=== PATIENT | male | born 1965 | race Caucasian/White ===

== ENCOUNTER 2017-01-15 05:28 | Emergency (ER) | payer MEDICARE, MEDICAID ==
[~2017-01-15] VITALS: Ht 188 cm; Wt 117.5 kg
[~2017-01-15 05:28] MED LIST: ACETAMINOPHEN500 M3 PO; AMIODARONE 200200 MG PO; AMLODIPINE BES2.5 MG PO; ASPIRIN 81MG TA81 MG PO; ATENOLOL50 MG PO; ATORVASTATIN 8080 MG PO; ATORVASTATIN CA80 MG PO; AUGMENTIN 875-1 EACH PO; AZITHROMYCIN250 M1 PO; COREG25 MG PO; ETODOLAC400 MG PO; FLEXERIL10 MG PO; FLONASE 50 MCG16 GM; FUROSEMIDE40 MG PO; GABAPENTIN300 M1 PO; GABAPENTIN300 MG PO; HYCODAN 5MG. TAB5 MG PO; HYDROCODON-ACETAMINO PO; HYDROCODONE-APA1 TA1 PO; IMDUR 30MG. TAB30 MG PO; IMDUR 60MG. TAB60 MG PO; LIPITOR20 MG PO; LISINOPRIL/HCTZ1 TA3 PO; LISINOPRIL10 MG PO; LOPRESSOR100 M1 PO; LORTAB 5/3251 TAB PO; LORTAB 5/500 501 TAB PO; MEDROL 4MG. DOSE4 MG PO; METOPROLOL SUC100 M1 PO; METOPROLOL TAR100 MG PO; METOPROLOL TART50 MG PO; MULTIVITAMIN1 TA1 PO; NAPROXEN SODIU500 MG PO; NEURONTIN800 MG PO; NITROSTAT0.4 MG SL; NORCO 325 MG-51 TAB PO; PERCOCET 5/3251 EACH PO; PERCOCET1 TA1 PO; PERCOGESIC1 TAB PO; PHENERGAN 25MG.25 M1 PO; PHENERGAN25 M3 PO; PLAVIX 75MG TAB75 MG PO; PLAVIX75 MG PO; POTASSIUM CHLO20 ME2 PO; PREDNISONE 10MG10 MG PO; PREDNISONE 20MG20 MG PO; PRILOSEC OTC20 MG PO; PROTONIX40 MG PO; SALMETEROL-F28 PUFFS IN; SERTRALINE 100100 MG PO; TESSALON PERLE100 MG PO; TRAMADOL 50MG T50 MG PO; TYLENOL ES500 M1 PO; TYLENOL WITH CO1 TA1 PO; VENLAFAXINE H37.5 MG PO; VENTOLIN H0.09 MG/AC IH; VENTOLIN H0.09 MG/Ac IH; VICODIN 5/500 T1 TAB PO; WARFARIN 3MG TAB3 MG PO; ZOFRAN ODT4 MG PO; ZOFRAN4 MG PO; ZOLOFT 50MG TAB50 MG PO
[2017-01-15 06:02] LABS: HEMOGLOBIN 16.4 g/dL (14.1-18.0); LYMPH # 2.4 K/mm3 (0.7-4.5); LYMPH % 23.3 % (10-50)
--- NOTE | 2017-01-15 06:35 | Emergency Room Report ---
History of Present Illness Time Seen by [id number] Presenting Problem in Triage Pt arrived:Walked Presenting Problem:C/O LEFT RIB PAIN AFTER SHOVELING ROCK LAST WEEK. HAS APPT WITH DR ROSADO AT 1:45 TODAY. 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 N Clinical Suspician of Infection? Y Mental Status: 1 - Regular (Normal Baseline) Sepsis Risk:Low Sepsis Risk Have you (or family members/close friends) recently traveled outside the [place]? N If Yes, where/when: Have you had exposure to infectious disease within the past month? N TB? Other? Specify: Source patient, RN notes reviewed, family, old records Exam Limitations no limitations Comment lt rib pain over the last few days with no hemoptysis and no rash - he reports started after shoveling rocks - has been in ed x 2 for same issue Cardiac Chest Pain Chest pain indicative of cardiac No Timing/Duration this evening Severity moderate ALLERGIES Coded Allergies: diphenhydramine (From BENADRYL ALLERGY) (Mild, NA-NAUSEA 04/17/16) nitroglycerin (Mild, NITRO PASTE-NAUSEA 04/17/16) pseudoephedrine (From SUDAFED) (Mild, NA-NAUSEA 04/17/16) Home Medications Active Scripts Prednisone (Prednisone 20MG) 20 MG PO BID #10 TAB Prov: 12/22/16 Prednisone (Prednisone 20MG) 20 MG PO BID #10 TAB Prov: 01/12/17 Fluticasone Propionate (Flonase 50 Mcg Nasal [place]) 2 SPRAY NA DAILY #1 BOT Prov: 12/20/16 Reported Medications Metoprolol Tartrate (Lopressor) 100 MG PO BID Multiple Vitamin (Multivitamin) 1 TAB PO DAILY Venlafaxine Hydrochloride (Venlafaxine) 37.5 MG PO BID CLOPIDOGREL BISULFATE (PLAVIX) 75 MG PO DAILY Pantoprazole Sodium (Protonix) 40 MG PO DAILY Nitroglycerin (Nitrostat) 0.4 MG SL [id number] PRN CHEST PAIN Atorvastatin Calcium (Atorvastatin 80MG) 80 MG PO QHS Gabapentin (Gabapentin 300MG) 300 MG PO TID Sertraline Hydrochloride (Sertraline 100MG) 200 MG PO DAILY Albuterol Sulfate (Ventolin Hfa) 0.09 MG IH PRN PRN . History Medical History General CAD? Yes Angina: Yes CT: Yes Hypertension? Yes Hyperlipidemia? No CHF? Yes DVT? No PE? No COPD? Yes Asthma? No Anemia? No GERD? Yes Gastric ulcers? No GI Bleed? No Hernia? No Thyroid Problems? No Hypothyroidism? No CVA? No Seizures? No Diabetes? No Renal Insuffiency? No End Stage Renal Disease? No UTI? No Stones? No BPH? No GB Disease: No Nephritic Syndrome? No Asplenia? No Hepatitis? No Sickle Cell Disease? No Arthritis? Yes Migraines? No Cataracts? No Glaucoma? No MRSA? No HIV? No TB? No Anxiety? Yes Depression? Yes Cancer? No More? Yes Additional hx: A-FIB, TIA Immunization Hx DT/Tetanus Unknown Flu [id number] Pneumonia Received In Past Surgical Hx Previous Surgery?Y RT HIP REPLAC X2 LEFT LEG AND ANKLE SURGER GALL BLADDER REMOVED ANURISM OPEN HEART TRIPLE BYPASS HEART CATH 01/2014 STOMACH ANERSYM REPAIR CARDIAC STENTS Family History Family Hx Diabetes Yes CAD Yes Hypertension Yes Hyperlipidemia Yes Cancer Yes TB Yes Social History Smoking Hx Smoker: Current Every Day Smoker Tobacco: Yes Type Cigarettes Packs/day 1 1/2 - 2 Packs Alcohol Alcohol: No Drugs none Review of Systems All Other Systems Reviewed and Negative Constitutional denies fever Eyes denies drainage ENT denies: ear pain, epistaxis, throat pain. Respiratory see HPI, denies cough, denies shortness of breath, denies wheezing, other Cardiovascular see HPI, denies chest pain, denies palpitations, denies syncope, other Gastrointestinal denies abdominal pain, denies diarrhea, denies vomiting Genitourinary denies: dysuria, frequency, hesitancy, hematuria. Musculoskeletal denies back pain, denies joint pain, denies joint swelling, denies neck pain Skin denies rash Psychiatric/Neurological denies headache, denies seizure Physical Exam Vital Signs Vital Signs Date Time Temp Pulse Resp B/P Pulse O2 O2 Flow FiO2 Ox Delivery Rate 01/15 0638 97.4 54 20 171/70 94 01/15 0608 56 20 158/65 96 01/15 0533 97.4 58 20 172/86 96 - WBC >12,000 or <4,000 or 10% bands? 2 or more SIRS Criteria Met? B/P:171/70 MAP:114 Creatinine >2.0? UA output<0.5ml/kg/hr for 2 hrs? Platelet count >100,000? Lactate >2.0mmol/1? INR >1.2 or PTT > than 60 sec? Evidence of Organ Dysfunction? Provider documented clinical suspician of infection? Y Sepsis Criteria Count: 1 Sepsis Risk: Low Sepsis Risk General Appearance no apparent distress Eye Exam - bilateral eye PERRL, bilateral eye EOMI Ear, Nose, Throat normal ENT inspection Neck supple Respiratory Status No: respiratory distress. Lung Sounds bilateral: rhonchi. 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 No Results/Orders Laboratory Tests 01/15/17 0538: Sodium 142, Potassium 4.1, Chloride 106, Carbon Dioxide 30, BUN 20 H, Creatinine 0.9, Estimated Creat Clear 158, Estimated GFR (MDRD) 88, Glucose 104, Calcium 9.4, Total Bilirubin 0.5, AST 22, ALT 36, Alkaline Phosphatase 112, Creatine Kinase 38 L, CK-MB (CK-2) Rel Index 3.7, CK and CKMB Interp 1.4, Troponin I 0.16 H, Total Protein 8.1, Albumin 3.8, Globulin 4.3 H, Albumin/ Globulin Ratio 0.9 L, WBC 10.3, RBC 5.05, Hgb 16.4, Hct 49.3, MCV 97.7, RDW 14.6, Plt Count 184, MPV 5.7 L, Gran % 71.4, Gran # 7.4, Lymphocytes % 23.3, Monocytes % 4.7, Eosinophils % 0.3, Basophils % 0.3, Lymphocytes # 2.4, Monocytes # 0.5, Eosinophils # 0.0, Basophils # 0.0, PUBS MCHC 33.2, MCH 32.5 H Current Medication Orders Sig/Sudhakar Start time Last Medication Dose Route Stop Time Status Admin Sodium Chloride 10 ML PRN PRN 01/15 545 AC IV 01/17 544 Orders Procedure Date/time Status FELLER HAND 01/15 643 Active ELECTROCARDIOGRAM REQUEST 01/15 545 Active CHEST(2 VIEWS-NOT PORTABLE) 01/15 545 Active IV SALINE LOCK 01/15 545 Active CBC WITH AUTO DIFF 01/15 545 Complete CARDIAC ENZYMES 01/15 545 Complete CHEM 12 PROFILE 01/15 545 Complete 12 LEAD EKG-AUBREY (INITIAL) 01/15 UNK Active 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 Rhythm Sinus Bradycardia EKG compared w/(date of old), LBBB XRAY/CT/US XRAY/CT/US XRAY chest XR interpretation by reviewed by me Xray Results normal/NAD Departure Departure Time of Disposition 0650 Disposition DC Home or Self Care(routine) Clinical Impression Primary Impression: Sprain of costal cartilage Qualifiers: Encounter type: subsequent encounter Qualified Code: S23.41XD - Sprain of ribs, subsequent encounter Secondary Impressions: LBBB (left bundle branch block) Condition STABLE Patient Instructions DI for Rib Contusion Additional Instructions keep appt today Discharge Counseling Counseled pt/family regarding diagnosis, test results, follow up needs ED Critical Care Critical Care No at [phone]
--- NOTE | 2017-01-15 06:35 | Emergency Room Report ---
History of Present Illness Time Seen by [id number] Presenting Problem in Triage Pt arrived:Walked Presenting Problem:C/O LEFT RIB PAIN AFTER SHOVELING ROCK LAST WEEK. HAS APPT WITH DR ROSADO AT 1:45 TODAY. 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 N Clinical Suspician of Infection? Y Mental Status: 1 - Regular (Normal Baseline) Sepsis Risk:Low Sepsis Risk Have you (or family members/close friends) recently traveled outside the [place]? N If Yes, where/when: Have you had exposure to infectious disease within the past month? N TB? Other? Specify: Source patient, RN notes reviewed, family, old records Exam Limitations no limitations Comment lt rib pain over the last few days with no hemoptysis and no rash - he reports started after shoveling rocks - has been in ed x 2 for same issue Cardiac Chest Pain Chest pain indicative of cardiac No Timing/Duration this evening Severity moderate ALLERGIES Coded Allergies: diphenhydramine (From BENADRYL ALLERGY) (Mild, NA-NAUSEA 04/17/16) nitroglycerin (Mild, NITRO PASTE-NAUSEA 04/17/16) pseudoephedrine (From SUDAFED) (Mild, NA-NAUSEA 04/17/16) Home Medications Active Scripts Prednisone (Prednisone 20MG) 20 MG PO BID #10 TAB Prov: 12/22/16 Prednisone (Prednisone 20MG) 20 MG PO BID #10 TAB Prov: 01/12/17 Fluticasone Propionate (Flonase 50 Mcg Nasal [place]) 2 SPRAY NA DAILY #1 BOT Prov: 12/20/16 Reported Medications Metoprolol Tartrate (Lopressor) 100 MG PO BID Multiple Vitamin (Multivitamin) 1 TAB PO DAILY Venlafaxine Hydrochloride (Venlafaxine) 37.5 MG PO BID CLOPIDOGREL BISULFATE (PLAVIX) 75 MG PO DAILY Pantoprazole Sodium (Protonix) 40 MG PO DAILY Nitroglycerin (Nitrostat) 0.4 MG SL [id number] PRN CHEST PAIN Atorvastatin Calcium (Atorvastatin 80MG) 80 MG PO QHS Gabapentin (Gabapentin 300MG) 300 MG PO TID Sertraline Hydrochloride (Sertraline 100MG) 200 MG PO DAILY Albuterol Sulfate (Ventolin Hfa) 0.09 MG IH PRN PRN . History Medical History General CAD? Yes Angina: Yes [place]: Yes Hypertension? Yes Hyperlipidemia? No CHF? Yes DVT? No PE? No COPD? Yes Asthma? No Anemia? No GERD? Yes Gastric ulcers? No GI Bleed? No Hernia? No Thyroid Problems? No Hypothyroidism? No CVA? No Seizures? No Diabetes? No Renal Insuffiency? No End Stage Renal Disease? No UTI? No Stones? No BPH? No GB Disease: No Nephritic Syndrome? No Asplenia? No Hepatitis? No Sickle Cell Disease? No Arthritis? Yes Migraines? No Cataracts? No Glaucoma? No MRSA? No HIV? No TB? No Anxiety? Yes Depression? Yes Cancer? No More? Yes Additional hx: A-FIB, TIA Immunization Hx DT/Tetanus Unknown Flu [id number] Pneumonia Received In Past Surgical Hx Previous Surgery?Y RT HIP REPLAC X2 LEFT LEG AND ANKLE SURGER GALL BLADDER REMOVED ANURISM OPEN HEART TRIPLE BYPASS HEART CATH 01/2014 STOMACH ANERSYM REPAIR CARDIAC STENTS Family History Family Hx Diabetes Yes CAD Yes Hypertension Yes Hyperlipidemia Yes Cancer Yes TB Yes Social History Smoking Hx Smoker: Current Every Day Smoker Tobacco: Yes Type Cigarettes Packs/day 1 1/2 - 2 Packs Alcohol Alcohol: No Drugs none Review of Systems All Other Systems Reviewed and Negative Constitutional denies fever Eyes denies drainage ENT denies: ear pain, epistaxis, throat pain. Respiratory see HPI, denies cough, denies shortness of breath, denies wheezing, other Cardiovascular see HPI, denies chest pain, denies palpitations, denies syncope, other Gastrointestinal denies abdominal pain, denies diarrhea, denies vomiting Genitourinary denies: dysuria, frequency, hesitancy, hematuria. Musculoskeletal denies back pain, denies joint pain, denies joint swelling, denies neck pain Skin denies rash Psychiatric/Neurological denies headache, denies seizure Physical Exam Vital Signs Vital Signs Date Time Temp Pulse Resp B/P Pulse O2 O2 Flow FiO2 Ox Delivery Rate 01/15 0638 97.4 54 20 171/70 94 01/15 0608 56 20 158/65 96 01/15 0533 97.4 58 20 172/86 96 - WBC >12,000 or <4,000 or 10% bands? 2 or more SIRS Criteria Met? B/P:171/70 MAP:114 Creatinine >2.0? UA output<0.5ml/kg/hr for 2 hrs? Platelet count >100,000? Lactate >2.0mmol/1? INR >1.2 or PTT > than 60 sec? Evidence of Organ Dysfunction? Provider documented clinical suspician of infection? Y Sepsis Criteria Count: 1 Sepsis Risk: Low Sepsis Risk General Appearance no apparent distress Eye Exam - bilateral eye PERRL, bilateral eye EOMI Ear, Nose, Throat normal ENT inspection Neck supple Respiratory Status No: respiratory distress. Lung Sounds bilateral: rhonchi. 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 No Results/Orders Laboratory Tests 01/15/17 0538: Sodium 142, Potassium 4.1, Chloride 106, Carbon Dioxide 30, BUN 20 H, Creatinine 0.9, Estimated Creat Clear 158, Estimated GFR (MDRD) 88, Glucose 104, Calcium 9.4, Total Bilirubin 0.5, AST 22, ALT 36, Alkaline Phosphatase 112, Creatine Kinase 38 L, CK-MB (CK-2) Rel Index 3.7, CK and CKMB Interp 1.4, Troponin I 0.16 H, Total Protein 8.1, Albumin 3.8, Globulin 4.3 H, Albumin/ Globulin Ratio 0.9 L, WBC 10.3, RBC 5.05, Hgb 16.4, Hct 49.3, MCV 97.7, RDW 14.6, Plt Count 184, MPV 5.7 L, Gran % 71.4, Gran # 7.4, Lymphocytes % 23.3, Monocytes % 4.7, Eosinophils % 0.3, Basophils % 0.3, Lymphocytes # 2.4, Monocytes # 0.5, Eosinophils # 0.0, Basophils # 0.0, PUBS MCHC 33.2, MCH 32.5 H Current Medication Orders Sig/Sudhakar Start time Last Medication Dose Route Stop Time Status Admin Sodium Chloride 10 ML PRN PRN 01/15 545 AC IV 01/17 544 Orders Procedure Date/time Status STICKER HAND 01/15 643 Active ELECTROCARDIOGRAM REQUEST 01/15 545 Active CHEST(2 VIEWS-NOT PORTABLE) 01/15 545 Active IV SALINE LOCK 01/15 545 Active CBC WITH AUTO DIFF 01/15 545 Complete CARDIAC ENZYMES 01/15 545 Complete CHEM 12 PROFILE 01/15 545 Complete 12 LEAD EKG-AUBREY (INITIAL) 01/15 UNK Active 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 Rhythm 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 Bradycardia EKG compared w/(date of old), LBBB XRAY/CT/US XRAY/CT/US XRAY chest XR interpretation by reviewed by me Xray Results normal/NAD Departure Departure Time of Disposition 0650 Disposition DC Home or Self Care(routine) Clinical Impression Primary Impression: Sprain of costal cartilage Qualifiers: Encounter type: subsequent encounter Qualified Code: S23.41XD - Sprain of ribs, subsequent encounter Secondary Impressions: LBBB (left bundle branch block) Condition STABLE Patient Instructions DI for Rib Contusion Additional Instructions keep appt today Discharge Counseling Counseled pt/family regarding diagnosis, test results, follow up needs ED Critical Care Critical Care No at 0651
[2017-01-15 07:04] VITALS: BP 188/90
--- NOTE | 2017-01-15 09:15 | RADIOLOGY REPORT PS360 ---
CHEST(2 VIEWS-NOT PORTABLE) COMPARISON: PA and lateral chest 01/11/2017 HISTORY: Left chest wall pain TECHNIQUE: PA and lateral chest FINDINGS: The lung lemos are well expanded and appear clear of infiltrate. There is no pleural fluid. Cardiac size is normal and unchanged from the previous exam. The sternal wire sutures are again noted. IMPRESSION: Nonacute chest findings
== END 2017-01-15 07:11 | disposition home or self-care (01) ==
LOC: ER 05:28
PROVIDERS: Emergency Medicine
DX: S23.41XA Sprain of ribs, initial encounter (principal); I25.10 Atherosclerotic heart disease of native coronary artery without angina pectoris; I10 Essential (primary) hypertension; I48.91 Unspecified atrial fibrillation; I44.7 Left bundle-branch block, unspecified; X50.3XXA Overexertion from repetitive movements, initial encounter; Y92.009 Unspecified place in unspecified non-institutional (private) residence as the place of occurrence of the external cause

== ENCOUNTER 2017-06-17 10:24 | Observation (INO) | payer MEDICARE, MEDICAID ==
[~2017-06-17] VITALS: Ht 188 cm; Wt 110.0 kg
[~2017-06-17 10:24] MED LIST changes: +CIPRO 500MG TA500 MG PO; +ELIQUIS5 MG PO; +GABAPENTIN 600600 MG PO; +GABAPENTIN800 MG PO; +ISOSORBIDE MONO60 M1 PO
[2017-06-17 11:19] VITALS: BP 152/89
[2017-06-17] MEDS ORDERED: CLOPIDOGREL75 M1 PO (11:32)
[2017-06-17] MEDS ORDERED: K-DUR 20MEQ TA20 MEQ PO (11:33)
[2017-06-17] MEDS ORDERED: ONDANSETRON ODT8 MG PO (11:34)
[2017-06-17] MEDS ORDERED: GABAPENTIN800 MG PO (11:35)
[2017-06-17] MEDS ORDERED: LISINOPRIL40 MG PO (11:35)
[2017-06-17] MEDS ORDERED: METOPROLOL SUC100 M1 PO (11:37)
[2017-06-17] MEDS ORDERED: ELIQUIS5 MG PO (11:37)
[2017-06-17] MEDS ORDERED: ALDACTONE25 MG PO (11:38)
[2017-06-17] MEDS ORDERED: IMDUR 60MG. TAB60 MG PO (11:40)
[2017-06-17] MEDS ORDERED: ATORVASTATIN 8080 MG PO (11:41)
[2017-06-17] MEDS ORDERED: VENTOLIN H0.09 MG/Ac IH (11:41)
[2017-06-17] MEDS ORDERED: SERTRALINE 100100 MG PO (11:43)
[2017-06-17] MEDS ORDERED: HYDROCODONE BIT1 T51 PO (11:44)
[2017-06-17] MEDS ORDERED: OXYCODONE HYDRO1 TA1 PO (11:45)
[2017-06-17] MEDS ORDERED: TAMSULOSIN HYD0.4 MG PO (11:45)
[2017-06-17] MEDS ORDERED: PHENERGAN25 M3 PO (11:46)
[2017-06-17] MEDS ORDERED: AMITRIPTYLINE H25 MG PO (11:48)
--- NOTE | 2017-06-17 14:12 | CONSULT NOTE ---
Standard Demographics Patient Demo Date of Consultation: 06/17/17 Referring Provider: Ministerio Madrid MD Reason for Consultation: Pre-op Evaluation PRIMARY DIAGNOSIS: LEFT RENAL STONE AND RENAL COLIC Problem list Problem list: 1. Coronary artery disease A. History of coronary bypass grafting 3. DOCKERY not used. B. History of persistent elevated troponin prompting LEFT heart catheterization , 02/13/2017, diffuse, mild to moderate nonflow limiting coronary artery disease with all vein grafts occluded by previous angiography. LEFT ventricular ejection fraction 40 percent with LV dilatation noted. LVEDP is 15 mmHg. C. Echocardiogram 02/13/2017 LEFT atrial size 5.8 cm, mild LEFT ventricular dilatation with an estimated ejection fraction of 40 percent with marked hypo-to akinesis involving the mid to distal septum, anteroapical, apex and inferior atwood. RIGHT atrium and RIGHT ventricle normal in size with normal contractility. Aortic valve is thickened and calcified but continued to display mobility. Mitral valve leaflets are minimally thickened with no MS. Mild MR and TR noted. D. Cardiac catheterization 01/2016 adequate iliamna coronary arteries with mild nonflow limiting disease. All saphenous vein grafts are occluded ostially with no identifiable angiographic origin. Hyperdynamic ejection fraction at 70 percent with LVEDP 18 mmHg. 2. History of infrarenal abdominal aortic aneurysm, status post percutaneous endovascular repair using a [employer] modular bifurcated prosthesis (main body of the graft 26 x 111, LEFT ipsilateral limb 20 x 90, RIGHT contralateral limb 16 x 90) , Dr. Vinicius Chandler, [facility], [place], [place], 03/2015 3. Atrial fibrillation, paroxysmal A. Previously on Coumadin therapy, switch to Xarelto therapy 02/2017 but currently on Eliquis therapy at this time. B. History of TIA for which she has been on Plavix. 4. Tobacco use of one to 1.5 packs per day 5. Chronic back pain 6. Chronic abnormal electrocardiogram with LEFT bundle branch block 7. Hypertension 8. Hyperlipidemia History of present illness: History of present illness: 51-year-old white male with significant history for for coronary artery disease, chronic atrial fibrillation and cardiomyopathy with ejection fraction of 40 percent by recent cardiac catheterization and echocardiogram was admitted from Dr. Madrid's office for kidney stone with persistent pain and hematuria. Cardiology consulted for preop evaluation. Patient denies any recent chest pain, pressure tightness or shortness of breath. He states he has been feeling well until last couple of weeks when the kidney stone pain has begun. He started passing blood last week. He has an appointment with Dr. Jolly later this month but due to the increasing and persistent pain, was seen in Dr. Madrid's office and subsequently admitted today. Past Medical History: General: Hypertension Yes CVA No Seizures No TB No COPD Yes Asthma No Diabetes No Angina Yes [place] Yes Hyperlipidemia No Urinary No Cancer No Rheumatic H.D. No Ulcers No MRSA No GB Disease No Other CARDIAC CLEARANCE ONCHART Additional hx A-FIB, TIA Past Surgical HX: Previous Surgery?Y RT HIP REPLAC X2 LEFT LEG AND ANKLE SURGER GALL BLADDER REMOVED ANURISM OPEN HEART TRIPLE BYPASS HEART CATH 01/2014 STOMACH ANERSYM REPAIR CARDIAC STENTS HERNIA REPAIR Allergies Coded Allergies: diphenhydramine (From BENADRYL ALLERGY) (Mild, NA-NAUSEA 05/23/17) pseudoephedrine (From SUDAFED) (Mild, NA-NAUSEA 05/23/17) nitroglycerin (From NITRO-BID) (05/23/17) Home medications: Active Scripts Ciprofloxacin HCl (Cipro 500MG TAB) 500 MG PO BID #14 TAB Prov: 05/24/17 Reported Medications CLOPIDOGREL BISULFATE (Clopidogrel) 75 MG PO DAILY POTASSIUM CHL (Potassium Chloride) 20 MEQ PO DAILY Ondansetron (Ondansetron Odt) 8 MG PO PRN PRN nausea Gabapentin (Gabapentin 800MG) 800 MG PO Q8 Lisinopril (Lisinopril 40MG) 40 MG PO DAILY METOPROLOL SUCCINATE XL (Metoprolol Succinate) 100 MG PO BID Apixaban (Eliquis) 5 MG PO DAILY Spironolactone (Aldactone) 25 MG NG DAILY ISOSORBIDE MONONITRATE (Isosorbide Mononitrate ER) 60 MG PO DAILY Albuterol Sulfate (Ventolin Hfa) 0.09 MG IH BID Atorvastatin Calcium (Atorvastatin 80MG) 80 MG PO QHS Sertraline Hydrochloride (Sertraline 100MG) 100 MG PO BID HYDROCODONE/ACETAMINOPHEN (Hydrocodon-Acetaminoph 7.5-300) 1 TAB PO PRN PRN pain OXYCODONE HCL/ACETAMINOPHEN (Oxycodon-Acetaminophen 7.5-325) 1 TAB PO PRN PRN pain TAMSULOSIN HCL (Tamsulosin 0.4MG) 0.4 MG PO QHS PROMETHAZINE HCL (Phenergan 25MG Tab (Geq)) 25 MG PO Q6HP PRN N/V AMITRIPTYLINE HCL (Amitriptyline Hydrochloride) 25 MG PO DAILY Multiple Vitamin (Multivitamin) 1 TAB PO DAILY Pantoprazole Sodium (Protonix) 40 MG PO DAILY Current Medications: Current Medications Amitriptyline HCl 25 MG DAILY PO (CAN) Amlodipine Besylate 2.5 MG DAILY PO Clopidogrel Bisulfate 75 MG DAILY PO Furosemide 40 MG DAILY PO Isosorbide Mononitrate 60 MG DAILY PO (CANr) Atorvastatin Calcium 80 MG QHS PO (CAN) Atorvastatin Calcium 80 MG QHS PO Gabapentin 800 MG TID PO Lisinopril 10 MG BID PO Metoprolol Succinate 150 MG BID PO Pantoprazole Sodium 40 MG QHS PO Quetiapine Fumarate 100 MG QHS PO Sertraline HCl 100 MG BID PO Tamsulosin HCl 0.4 MG QHS PO Sodium Chloride 1,000 ML .STK-MED ONE IV (DC) Hydromorphone HCl 1 MG Q4HP PRN IV Sodium Chloride 1,000 ML .[id number] IV Immunization HX DT/Tetanus Unknown Flu [id number] Pneumonia RECEIVED IN PAST TB Test in last year No Family history Family HX Family Hx Insignificant No Diabetes Yes CAD Yes Hypertension Yes Hyperlipidemia Yes Cancer Yes TB Yes Social Hx: Smoking HX Tobacco Yes Type Cigarettes Packs/day < 1 PACK Are you/the child exposed to second-hand smoke: Yes Alcohol Alcohol: No Hx of Drug Use Drug Use? No Review of systems: Constitutional No: no symptoms reported. Respiratory No: no symptoms reported. Cardiovascular No no symptoms reported Gastrointestinal/Abdominal No no symptoms reported Genitourinary hematuria, pain. Musculoskeletal back pain. Neurological No: no symptoms reported. Exam: Admission Vital Signs: 1ST Vital Signs Result Date Time Pulse Ox 98 06/17 1119 B/P 152/89 06/17 1119 O2 Delivery ROOM AIR 06/17 1119 Temp 97.5 06/17 1119 Pulse 72 06/17 1119 Resp 20 06/17 1119 Last Vital Signs: Vital Signs Result Date Time Resp 06/17 1308 Pulse 72 06/17 1119 B/P 152/89 06/17 1119 Temp 97.5 06/17 1119 Pulse Ox 98 06/17 111 O2 Delivery ROOM AIR 06/17 111 Exam General appearance: alert, awake, no acute distress Neck: no carotid bruit, no JVD Cardiovascular: regular rate & rhythm, no murmur Respiratory: clear to auscultation, good air movement ABD: soft, no tenderness Extremities: moves all, no peripheral edema Neuro: alert, intact, oriented Laboratory data: Laboratory Tests 06/17/17 1350: Urine Color YELLOW, Urine Appearance CLEAR, Urine pH 6.5, Ur Specific Armstrong <= 1.005, Urine Protein NEGATIVE, Urine Ketones NEGATIVE, Urine Blood 3+ H, Urine Nitrate NEGATIVE, Urine Bilirubin NEGATIVE, Urine Urobilinogen 0.2, Ur Leukocyte Esterase NEGATIVE, Urine RBC 3-5, Urine WBC NONE, Ur Squamous Epith Cells OCC, Urine Bacteria TRACE, Urine Glucose NEGATIVE 06/17/17 1110: Sodium 141, Potassium 3.2 L, Chloride 105, Carbon Dioxide 24, BUN 9, Creatinine 1.0, Estimated Creat Clear 133, Estimated GFR (MDRD) 78, Glucose 112 H, Calcium 9.3, Total Bilirubin 0.5, AST 18, ALT 18, Alkaline Phosphatase 97, Total Protein 7.3, Albumin 3.6, Globulin 3.7 H, Albumin/Globulin Ratio 1.0 L Plan: Assessment: 1. Nephrolithiasis, Renal Colic and hematuria with plans for surgery 2. Non-flow limiting CAD by cath, 02/2017, asymptomatic on medical therapy. 3. Chronic elevated troponin, pt has been referred to Cardiology for further evaluation since pt is unable to have Cardiac MRI due to endovascular Abdominal Aortic Aneurysm repair containing metal. 4. Cardiomyopathy, EF 40% on echo and cardiac cath, 03/2017. On SANTY, spironolactone and Beta dalton therapy 5. LBBB on EKG, chronic. No history of near-syncope or syncope. 6. Atrial fibrillation, paroxysmal, with history of TIA, On Eliquis and plavix therapy. 7. HTN, controlled 8. Hyperlipidemia, on statin Recommendations: 1. Patient is an acceptable risk to proceed with planned urologic surgery. 2. He may hold Eliquis and plavix starting today and bridge with Lovenox therapy starting tomorrow if surgery not planned for today or tomorrow. 3. Recommend continuing cardiac medications including SANTY inhibitor, spironolactone and beta dalton therapy. 4. Cautious use of IV fluids due to cardiomyopathy with ejection fraction of 40 percent. at 0738
[2017-06-17 14:14] LABS: URINE BILIRUBIN - DIPSTICK NEGATIVE (NEG); URINE BLOOD 3+ (NEG)
--- NOTE | 2017-06-17 14:23 | RADIOLOGY REPORT PS360 ---
CT ABD PELVIS W/O CONTRAST CLINICAL INDICATION: Left flank pain with hematuria LEFT FLANK PAIN ORDERING PHYSICIAN: Franko Madrid MD PATIENT AGE: 51 years COMPARISON: 05/23/2017 TECHNIQUE: Axial images obtained with sagittal and coronal reformats. PROCEDURE: Oral Contrast: None IV Contrast: None . FINDINGS: There are minimal atelectatic changes in the lung bases. Coronary artery calcifications are present. There has been prior cholecystectomy. The liver, spleen, adrenal glands, and pancreas are unremarkable. No obvious biliary dilatation. There is there is an 8 mm stone within the left renal pelvis. Previously this was in the lower pole of the left kidney. There is minimal prominence of the left renal pelvis some mild thickening of the uroepithelium. A definite ureteral calculus is not apparent. No urinary bladder calculi evident. Right renal collecting system is unremarkable. There are bilateral renal cysts. There has been prior aortoiliac stent graft placement. There remains dilatation of the aortic aneurysm sac at 4.9 x 4.5 cm unchanged. No evidence of acute retroperitoneal hemorrhage. No intestinal obstruction or free air. No evidence of appendicitis or diverticulitis Artifact is present from right hip prosthesis. IMPRESSION: 1. Left nephrolithiasis. Left renal stone is present in the renal pelvis previously in the lower pole the left kidney. There is minimal prominence of the left renal pelvis and mild thickening of the uroepithelium on the left however no definite obstructing calculus is apparent. The thickening could be related to urinary tract infection. 2. Prior aortoiliac stent graft with dilatation of the [place] aorta unchanged
[2017-06-17 14:32] LABS: URINE SQUAMOUS CELLS OCC #/hpf (OCC)
--- NOTE | 2017-06-17 16:01 | RADIOLOGY REPORT PS360 ---
CHEST(2 VIEWS-NOT PORTABLE) HISTORY: Shortness of breath sob ORDERING PHYSICIAN: Franko Madrid MD PATIENT AGE: 51 years COMPARISON: 04/25/2017 FINDINGS: There has been prior median sternotomy. Normal heart size. No evidence of CHF. There remains coarsening of the bronchovascular markings at 4 suggesting chronic peribronchial inflammatory changes. There is some density in the right infrahilar region probably related to overlapping vessels. No lobar consolidation or collapse. No acute bony anomalies. IMPRESSION: Chronic peribronchial inflammatory changes with no acute finding
[2017-06-17 16:30] VITALS: BP 103/68
[2017-06-17 19:32] VITALS: BP 103/68
[2017-06-17 20:05] VITALS: BP 104/51
--- NOTE | 2017-06-17 21:42 | RADIOLOGY REPORT PS360 ---
PROCEDURE: 2-D M-mode and color Doppler study INDICATIONS FOR THE TEST: Chest pain COPD+ Heart Murmur+ Tobacco Smoking+ Palpitations+ Fatigue Syncope Edema Hypertension+Diabetes Mellitus Rheumatic Fever SOB LEVINE+Obesity+Hyperlipidemia+` Family History HD Additional History CABG, multiple stents, shortening of MV leaflet, ventricular septal myectomy, AFIB, NI, TIA, LBBB PATIENT INFORMATION HEIGHT: 74 WEIGHT: 245 GENDER: Male B/P: 142/68 2-D/M-MODE INTERPRETATION: 2-D MEASUREMENTS OBSERVED VALUES IN CMS Right Ventricular Dimension (RVDd) 2.8 Interventricular Septum (Thickness)(IVsd) 1.6 Left Ventricular Internal Dimensions(LVIDd) 3.5 Left Ventricular Posterior Wall (Thickness)(LVPWd) 1.6 Aortic Root 4.1 Aortic Cusp Separation 2.8 Left Atrial Dimensions (LAD) 5.6 2D 1. Left atrium is moderately enlarged, left ventricle is normal size, there is mild concentric left ventricular hypertrophy, visually estimated ejection fraction approximately 40%, there is abnormal septal motion, there is marked hypokinesis involving the mid to distal septum and apical wall. 2. The right atrium and right ventricle are normal size and contractility. 3. The aortic valve is minimally thickened and calcified. 4. The mitral valve leaflets are minimally thickened. There is mild systolic anterior motion of the mitral valve leaflets seen. 5. The tricuspid valve is grossly normal. 6. The pulmonic valve is poorly visualized. DOPPLER INTERROGATION: Doppler interrogation of the aortic, mitral and tricuspid valvular presence of mild mitral and tricuspid regurgitation, there is mild aortic insufficiency also seen. There is no intracavitary gradient seen. The tricuspid and jet velocity insufficient for calculation of the right ventricular systolic pressure, diastolic parameters are inconclusive. CONCLUSION: 1. Moderately enlarged left atrium, normal left ventricular size, mild concentric left ventricular hypertrophy, visually estimated ejection fraction 40%, there is abnormal septal motion and segmental wall motion abnormality as described above, diastolic parameters are inconclusive. 2. Systolic anterior motion of the mitral valve leaflets seen, there is no mitral stenosis, there is mild mitral regurgitation. 3. Thickened and calcified aortic valve without aortic stenosis, there is mild aortic insufficiency present, there is no dynamic left ventricular outflow track obstruction seen. 4. Mild tricuspid regurgitation. 5. No significant pericardial effusion noted.
[2017-06-18 04:13] VITALS: BP 78/41
[2017-06-18 07:06] LABS: LYMPH # 1.9 K/mm3 (0.7-4.5); LYMPH % 33.9 % (10-50)
[2017-06-18 07:09] LABS: HEMOGLOBIN 12.7 g/dL (14.1-18.0)
[2017-06-18 07:29] VITALS: BP 89/55
[2017-06-18 09:07] VITALS: BP 117/68
--- NOTE | 2017-06-18 09:10 | ACUTE CARE PROGRESS NOTE (QUA) ---
Progress Notes Subjective Date 06/18/17 Time 0920 Note 51 yo WM in bed in NAD. Waiting to see Urologist to decide on treatment plan Objective Findings Last VS-Temp:98.4 B/P:89/55 Pulse:77 Resp:20 SaO2:93 ROOM AIR Last weight lbs:242 oz:9 K.026 Method:Bed Scales Exam General appearance: alert, awake, no acute distress Cardiovascular: regular rate & rhythm Respiratory: congested cough but lungs without wheezing or rales. Reviewed: medications, vital signs, lab results Assessment/Plan Problem List 1. Left nephrolithiasis 2. CAD (coronary artery disease) Status: Chronic Assessment/Plan: Clinically stable. 3. Hypertension Status: Chronic Assessment/Plan: Low BP overnight. Will stop norvasc. Consider reducing lisinopril if needed. Continue metoprolol 150 mg BID for BP/Heart rate control but may need to adjust as well. 4. Hyperlipidemia Status: Chronic 5. Chronic obstructive pulmonary disease Status: Chronic 6. Atrial fibrillation Patient condition Stable Plan: See above. This inpt stay is expected to cross 2 MNs from start of care Yes at 0914
--- NOTE | 2017-06-18 09:14 | PHARMACY CLINIC NOTE ---
Patient Demographics Patient Demographics Admission date: 06/17/17 Date: 06/18/17 Time: 0913 Allergies Coded Allergies: diphenhydramine (From BENADRYL ALLERGY) (Mild, NA-NAUSEA 05/23/17) pseudoephedrine (From SUDAFED) (Mild, NA-NAUSEA 05/23/17) nitroglycerin (From NITRO-BID) (05/23/17) HEIGHT- FT: 6 IN: 2.00 K.026 VTE General Information Labs: Laboratory Tests 06/18 0625 Hematology Hgb (14.1 - 18.0 g/dL) 12.7 L Hct (42.0 - 52.0 %) 37.1 L Plt Count (142 - 424 K/mm3) 132 L Disclaimer The following section includes nursing documentation that has been pulled in for pharmacy review. Patient's VTE score: 2 Patient's VTE Risk: VERY LOW RISK Clinical trial participant? No VTE prophylaxis NQF [id number] VTE prophylaxis ordered? Yes Type of prophylaxis/treatment: CHUCKIE at 0913
--- NOTE | 2017-06-18 12:19 | CONSULT NOTE-UROLOGY ---
Urology Initial Visit Date of Visit: 06/18/17 HPI/Chief Complaint: Referring provider: 51/M Presenting problem: Length of time pt has had problem: Person attending patient for this visit: Is seen for hospital consultation for LEFT renal calculus. He has multiple medical issues including status post bilateral aortobifem bypass endograft 3-4 years ago at [facility] also had cardiac surgery with bypass. He is followed by Dr. Franko Sellers cardiology at [facility]. He states that he saw him 3 weeks ago. He presented here with 2-3 weeks of LEFT flank pain LEFT lower back pain and bilateral lumbar pain. He had a CT scan which demonstrated a 9 mm LEFT renal stone without definite hydronephrosis. He had no hydroureter. He did have some around his graft which may or may not be significant. His had no fever or chills. He states that he passed a single stone about 20 years ago without surgical intervention. We discussed his this stone operator may not be causing his pain. Due to its size we did discuss intervention but not acutely here today. Considering his multiple conditions I suggest we perform this [facility]. We discussed flexible LEFT ureteroscopy with laser of the stone. We will place a stent perioperatively. Hopefully this can be performed as an outpatient. He understands and wishes to proceed. He does have transportation issues and we'll schedule for next week so he can arrange transportation. He was given a prescription for Percocet 5 mg number 20. Problem List: 1. Renal calculus, left 2. AAA (abdominal aortic aneurysm) Past Medical History Arthritis? Y Diabetes? N Hyperlipedemia? N Hypertension? Y Heart Problems? W[place]? Y SOA? Asthma? N Lung Disease? COPD? Y TB? N Anemia? Y Bleeding Disorder? Cancer? N Radiation Tx? Hoarsness? Thyroid Problems? N Ulcers? N Kidney Disease? Liver Disease? Glaucoma? Seizures? N CVA? N Immune Disease? HIV? N Trouble w/anesthesia? Abn PSA? Prostate Biopsy? Sexual Dysfunction? Abn Periods? Female Hormone Problems? Uterus/Ovary Problems? ? : Para: Control? Type of BC: Surgical & Social History: Previous Surgery?Y RT HIP REPLAC X2 LEFT LEG AND ANKLE SURGER GALL BLADDER REMOVED ANURISM OPEN HEART TRIPLE BYPASS HEART CATH 01/2014 STOMACH ANERSYM REPAIR CARDIAC STENTS HERNIA REPAIR Tobacco Use:Y Type:Cigarettes Packs/day:< 1 Pack If No, have you ever used and quit how long ago? Alcohol Use: Marital Status: Occupation: Family History: Anemia? Arthritis? Asthma? TB?Y Cancer?Y Bleeding Troubles? Hyperlipidemia?Y Diabetes?Y COPD? Glaucoma? [place]? Heart Problems? HIV? Hypertension?Y Hoarsness? Immune Disease? Kidney Disease? Liver Disease? Lung Disease? Radiation Tx? Seizures? Shortness of Breath? Ulcers? CVA? Thyroid Problems? Trouble w/Anes? Any men in family ever diagnosed with prostate cancer? Relationship of this person: Current Home Medications Active Scripts Ciprofloxacin HCl (Cipro 500MG TAB) 500 MG PO BID #14 TAB Prov: 05/24/17 Reported Medications Spironolactone (Aldactone) 25 MG PO DAILY CLOPIDOGREL BISULFATE (Clopidogrel) 75 MG PO DAILY POTASSIUM CHL (Potassium Chloride) 20 MEQ PO DAILY Ondansetron (Ondansetron Odt) 8 MG PO PRN PRN nausea Gabapentin (Gabapentin 800MG) 800 MG PO Q8 Lisinopril (Lisinopril 40MG) 40 MG PO DAILY METOPROLOL SUCCINATE XL (Metoprolol Succinate) 100 MG PO BID Apixaban (Eliquis) 5 MG PO DAILY ISOSORBIDE MONONITRATE (Isosorbide Mononitrate ER) 60 MG PO DAILY Albuterol Sulfate (Ventolin Hfa) 0.09 MG IH BID Atorvastatin Calcium (Atorvastatin 80MG) 80 MG PO QHS Sertraline Hydrochloride (Sertraline 100MG) 100 MG PO BID HYDROCODONE/ACETAMINOPHEN (Hydrocodon-Acetaminoph 7.5-300) 1 TAB PO PRN PRN PAIN OXYCODONE HCL/ACETAMINOPHEN (Oxycodon-Acetaminophen 7.5-325) 1 TAB PO PRN PRN PAIN TAMSULOSIN HCL (Tamsulosin 0.4MG) 0.4 MG PO QHS PROMETHAZINE HCL (Phenergan 25MG Tab (Geq)) 25 MG PO Q6HP PRN N/V AMITRIPTYLINE HCL (Amitriptyline Hydrochloride) 25 MG PO DAILY Multiple Vitamin (Multivitamin) 1 TAB PO DAILY Pantoprazole Sodium (Protonix) 40 MG PO DAILY Allergies: Coded Allergies: diphenhydramine (From BENADRYL ALLERGY) (Mild, NA-NAUSEA 05/23/17) pseudoephedrine (From SUDAFED) (Mild, NA-NAUSEA 05/23/17) nitroglycerin (From NITRO-BID) (05/23/17) Review of Systems: Genitourinary (Male): Positive for: flank pain, hematuria. No: frequency. Vital Signs/Wt/Labs Weight -LB:242 OZ:9 K.026 Method:Bed Scales Height -FT:6 IN:2 CM:187.96 BMI:31.1 Vital Signs Date Time Temp Pulse Resp B/P Pulse O2 O2 Flow FiO2 Ox Delivery Rate 06/18 907 98.4 77 20 117/68 93 06/18 0900 20 06/18 0729 98.4 77 20 89/55 93 ROOM AIR 06/18 0413 97.8 68 18 78/41 91 ROOM AIR 06/18 0358 17 06/17 2149 06/17 2005 98.0 68 17 104/51 94 ROOM AIR 06/17 1932 97.8 83 20 103/68 94 06/17 1740 20 06/17 1630 97.8 83 16 103/68 94 ROOM AIR 06/17 1308 20 Color: Appearance Glucose: Ketone: Bilirubin: Sp.Helm: pH: Protein: Urobilinogen: Blood: Nitrite: Leukocytes: Urine collection method? Residual (ml): Laboratory Tests 06/18/17 0625: WBC 5.6, RBC 4.04 L, Hgb 12.7 L, Hct 37.1 L, MCV 91.7, RDW 13.6, Plt Count 132 L, MPV 7.4, Gran % 55.6, Gran # 3.1, Lymphocytes % 33.9, Monocytes % 5.6, Eosinophils % 4.5, Basophils % 0.3, Lymphocytes # 1.9, Monocytes # 0.3, Eosinophils # 0.3, Basophils # 0.0, PUBS MCHC 33.9, MCH 31.1 06/17/17 1350: Urine Color YELLOW, Urine Appearance CLEAR, Urine pH 6.5, Ur Specific Helm <= 1.005, Urine Protein NEGATIVE, Urine Ketones NEGATIVE, Urine Blood 3+ H, Urine Nitrate NEGATIVE, Urine Bilirubin NEGATIVE, Urine Urobilinogen 0.2, Ur Leukocyte Esterase NEGATIVE, Urine RBC 3-5, Urine WBC NONE, Ur Squamous Epith Cells OCC, Urine Bacteria TRACE, Urine Glucose NEGATIVE 06/17/17 1110: Sodium 141, Potassium 3.2 L, Chloride 105, Carbon Dioxide 24, BUN 9, Creatinine 1.0, Estimated Creat Clear 133, Estimated GFR (MDRD) 78, Glucose 112 H, Calcium 9.3, Total Bilirubin 0.5, AST 18, ALT 18, Alkaline Phosphatase 97, Total Protein 7.3, Albumin 3.6, Globulin 3.7 H, Albumin/Globulin Ratio 1.0 L Exam: General appearance: alert, active, face symmetric (mild discomfort) Objective: LEFT lower and bilateral lumbar tenderness to palpation. Impression/Plan: CT scan was reviewed and is as above. No additional stones noted. We will arrange for LEFT flexible ureteroscopy with laser renal calculus. Remain on all anticoagulation therapy. He can be discharged home from here today. We will contact him regarding scheduling of his stone treatment at [phone]
--- NOTE | 2017-06-18 12:44 | ACUTE CARE PROGRESS NOTE (QUA) ---
Progress Notes Subjective Date 06/18/17 Time 0645 Note doing better Patient/family reports: feeling better Nursing reports: no complaints Objective Findings Last VS-Temp:98.4 B/P:117/68 Pulse:77 Resp:20 SaO2:93 ROOM AIR Last weight lbs:242 oz:9 K.026 Method:Bed Scales Exam General appearance: alert Eyes: anicteric, PERRLA ENT: dry mucous membranes Neck: no JVD Cardiovascular: regular rate & rhythm, murmur Respiratory: normal breath sounds, no respiratory distress ABD: soft, no tenderness, no guarding, no organomegaly Genitourinary: no hematuria Extremities: moves all Musculoskeletal: equal muscle strength Skin: dry Neuro: alert, seal mixer II-XII nml as tested Reviewed: allergies, medications, vital signs, lab results, radiology report, consult note Assessment/Plan Problem List 1. Left nephrolithiasis 2. CAD (coronary artery disease) Status: Chronic 3. Hypertension Status: Chronic 4. Hyperlipidemia Status: Chronic 5. Chronic obstructive pulmonary disease Status: Chronic 6. Atrial fibrillation Patient condition Improving Plan: initiate discharge plan This inpt stay is expected to cross 2 MNs from start of care Yes Comments: will d/c to follow up at [facility] with dr currie at 1245
--- NOTE | 2017-06-18 12:44 | ACUTE CARE PROGRESS NOTE (QUA) ---
Progress Notes Subjective Date 06/18/17 Time 0645 Note doing better Patient/family reports: feeling better Nursing reports: no complaints Objective Findings Last VS-Temp:98.4 B/P:117/68 Pulse:77 Resp:20 SaO2:93 ROOM AIR Last weight lbs:242 oz:9 K.026 Method:Bed Scales Exam General appearance: alert Eyes: anicteric, PERRLA ENT: dry mucous membranes Neck: no JVD Cardiovascular: regular rate & rhythm, murmur Respiratory: normal breath sounds, no respiratory distress ABD: soft, no tenderness, no guarding, no organomegaly Genitourinary: no hematuria Extremities: moves all Musculoskeletal: equal muscle strength Skin: dry 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 Left nephrolithiasis 2. CAD (coronary artery disease) Status: Chronic 3. Hypertension Status: Chronic 4. Hyperlipidemia Status: Chronic 5. Chronic obstructive pulmonary disease Status: Chronic 6. Atrial fibrillation Patient condition Improving Plan: initiate discharge plan This inpt stay is expected to cross 2 MNs from start of care Yes Comments: will d/c to follow up at [facility] with dr currie at 1245
[2017-06-18 12:55] VITALS: BP 117/68
--- NOTE | 2017-06-18 12:56 | DISCHARGE SUMMARY STANDARD ---
Demographics Admit date: 06/17/17 Discharge date: 06/18/17 History of present illness History of present illness 51-year-old white male with significant history for for coronary artery disease, chronic atrial fibrillation and cardiomyopathy with ejection fraction of 40 percent by recent cardiac catheterization and echocardiogram was admitted from Dr. Madrid's office for kidney stone with persistent pain and hematuria. Cardiology consulted for preop evaluation. Patient denies any recent chest pain, pressure tightness or shortness of breath. He states he has been feeling well until last couple of weeks when the kidney stone pain has begun. He started passing blood last week. He has an appointment with Dr. Jolly later this month but due to the increasing and persistent pain, was seen in Dr. Madrid's office and subsequently admitted today. Hospital Course Hospital Course: pt did well in the hospital with ivf and pain meds and was seen by card and urology- ONCLUSION: 1. Moderately enlarged left atrium, normal left ventricular size, mild concentric left ventricular hypertrophy, visually estimated ejection fraction 40%, there is abnormal septal motion and segmental wall motion abnormality as described above, diastolic parameters are inconclusive. 2. Systolic anterior motion of the mitral valve leaflets seen, there is no mitral stenosis, there is mild mitral regurgitation. 3. Thickened and calcified aortic valve without aortic stenosis, there is mild aortic insufficiency present, there is no dynamic left ventricular outflow track obstruction seen. 4. Mild tricuspid regurgitation. 5. No significant pericardial effusion noted. Left nephrolithiasis. Left renal stone is present in the renal pelvis previously in the lower pole the left kidney. There is minimal prominence of the left renal pelvis and mild thickening of the uroepithelium on the left however no definite obstructing calculus is apparent. The thickening could be related to urinary tract infection. 2. Prior aortoiliac stent graft with dilatation of the [place] aorta unchanged Coronary artery disease A. History of coronary bypass grafting 3. DOCKERY not used. B. History of persistent elevated troponin prompting LEFT heart catheterization , 02/13/2017, diffuse, mild to moderate nonflow limiting coronary artery disease with all vein grafts occluded by previous angiography. LEFT ventricular ejection fraction 40 percent with LV dilatation noted. LVEDP is 15 mmHg. C. Echocardiogram 02/13/2017 LEFT atrial size 5.8 cm, mild LEFT ventricular dilatation with an estimated ejection fraction of 40 percent with marked hypo-to akinesis involving the mid to distal septum, anteroapical, apex and inferior [place]wood. RIGHT atrium and RIGHT ventricle normal in size with normal contractility. Aortic valve is thickened and calcified but continued to display mobility. Mitral valve leaflets are minimally thickened with no MS. Mild MR and TR noted. D. Cardiac catheterization 01/2016 adequate [place] coronary arteries with mild nonflow limiting disease. All saphenous vein grafts are occluded ostially with no identifiable angiographic origin. Hyperdynamic ejection fraction at 70 percent with LVEDP 18 mmHg. 2. History of infrarenal abdominal aortic aneurysm, status post percutaneous endovascular repair using a Cook modular bifurcated prosthesis (main body of the graft 26 x 111, LEFT ipsilateral limb 20 x 90, RIGHT contralateral limb 16 x 90) , Dr. Vinicius Chandler, [facility], [place], [place], 03/2015 3. Atrial fibrillation, paroxysmal A. Previously on Coumadin therapy, switch to Xarelto therapy 02/2017 but currently on Eliquis therapy at this time. B. History of TIA for which she has been on Plavix. 4. Tobacco use of one to 1.5 packs per day 5. Chronic back pain 6. Chronic abnormal electrocardiogram with LEFT bundle branch block 7. Hypertension 8. Hyperlipidemia seen for hospital consultation for LEFT renal calculus. He has multiple medical issues including status post bilateral aortobifem bypass endograft 3-4 years ago at [facility] also had cardiac surgery with bypass. He is followed by Dr. Franko Sellers cardiology at [facility]. He states that he saw him 3 weeks ago. He presented here with 2-3 weeks of LEFT flank pain LEFT lower back pain and bilateral lumbar pain. He had a CT scan which demonstrated a 9 mm LEFT renal stone without definite hydronephrosis. He had no hydroureter. He did have some around his graft which may or may not be significant. His had no fever or chills. He states that he passed a single stone about 20 years ago without surgical intervention. We discussed his this stone spreader operator may not be causing his pain. Due to its size we did discuss intervention but not acutely here today. Considering his multiple conditions I suggest we perform this [facility]. We discussed flexible LEFT ureteroscopy with laser of the stone. We will place a stent perioperatively. Hopefully this can be performed as an outpatient. He understands and wishes to proceed. He does have transportation issues and we'll schedule for next week so he can arrange transportation. He was given a prescription for Percocet 5 mg number 20 Discharge diagnoses Problem List 1. Left nephrolithiasis 2. CAD (coronary artery disease) Status Chronic 3. Hypertension Status Chronic 4. Hyperlipidemia Status Chronic 5. Chronic obstructive pulmonary disease Status Chronic 6. Atrial fibrillation 7. Abdominal aortic aneurysm Status Chronic 8. Renal calculus, left Medications Medications: Discharge meds are as noted. Follow up Follow up in office in: 7 DAYS with: Deanne HANEY,Dave Lynn Comment: will see urology for op surg at 6819
--- NOTE | 2017-06-18 12:56 | DISCHARGE SUMMARY STANDARD ---
Demographics Admit date: 06/17/17 Discharge date: 06/18/17 History of present illness History of present illness 51-year-old white male with significant history for for coronary artery disease, chronic atrial fibrillation and cardiomyopathy with ejection fraction of 40 percent by recent cardiac catheterization and echocardiogram was admitted from Dr. Madrid's office for kidney stone with persistent pain and hematuria. Cardiology consulted for preop evaluation. Patient denies any recent chest pain, pressure tightness or shortness of breath. He states he has been feeling well until last couple of weeks when the kidney stone pain has begun. He started passing blood last week. He has an appointment with Dr. Jolly later this month but due to the increasing and persistent pain, was seen in Dr. Madrid's office and subsequently admitted today. Hospital Course Hospital Course: pt did well in the hospital with ivf and pain meds and was seen by card and urology- ONCLUSION: 1. Moderately enlarged left atrium, normal left ventricular size, mild concentric left ventricular hypertrophy, visually estimated ejection fraction 40%, there is abnormal septal motion and segmental wall motion abnormality as described above, diastolic parameters are inconclusive. 2. Systolic anterior motion of the mitral valve leaflets seen, there is no mitral stenosis, there is mild mitral regurgitation. 3. Thickened and calcified aortic valve without aortic stenosis, there is mild aortic insufficiency present, there is no dynamic left ventricular outflow track obstruction seen. 4. Mild tricuspid regurgitation. 5. No significant pericardial effusion noted. Left nephrolithiasis. Left renal stone is present in the renal pelvis previously in the lower pole the left kidney. There is minimal prominence of the left renal pelvis and mild thickening of the uroepithelium on the left however no definite obstructing calculus is apparent. The thickening could be related to urinary tract infection. 2. Prior aortoiliac stent graft with dilatation of the [place] aorta unchanged Coronary artery disease A. History of coronary bypass grafting 3. DOCKERY not used. B. History of persistent elevated troponin prompting LEFT heart catheterization , 02/13/2017, diffuse, mild to moderate nonflow limiting coronary artery disease with all vein grafts occluded by previous angiography. LEFT ventricular ejection fraction 40 percent with LV dilatation noted. LVEDP is 15 mmHg. C. Echocardiogram 02/13/2017 LEFT atrial size 5.8 cm, mild LEFT ventricular dilatation with an estimated ejection fraction of 40 percent with marked hypo-to akinesis involving the mid to distal septum, anteroapical, apex and inferior [place]. RIGHT atrium and RIGHT ventricle normal in size with normal contractility. Aortic valve is thickened and calcified but continued to display mobility. Mitral valve leaflets are minimally thickened with no MS. Mild MR and TR noted. D. Cardiac catheterization 01/2016 adequate [place] coronary arteries with mild nonflow limiting disease. All saphenous vein grafts are occluded ostially with no identifiable angiographic origin. Hyperdynamic ejection fraction at 70 percent with LVEDP 18 mmHg. 2. History of infrarenal abdominal aortic aneurysm, status post percutaneous endovascular repair using a Cook modular bifurcated prosthesis (main body of the graft 26 x 111, LEFT ipsilateral limb 20 x 90, RIGHT contralateral limb 16 x 90) , Dr. Vinicius Chandler, [facility], [place], [place], 03/2015 3. Atrial fibrillation, paroxysmal A. Previously on Coumadin therapy, switch to Xarelto therapy 02/2017 but currently on Eliquis therapy at this time. B. History of TIA for which she has been on Plavix. 4. Tobacco use of one to 1.5 packs per day 5. Chronic back pain 6. Chronic abnormal electrocardiogram with LEFT bundle branch block 7. Hypertension 8. Hyperlipidemia seen for hospital consultation for LEFT renal calculus. He has multiple medical issues including status post bilateral aortobifem bypass endograft 3-4 years ago at [facility] also had cardiac surgery with bypass. He is followed by Dr. Franko Sellers cardiology at [facility]. He states that he saw him 3 weeks ago. He presented here with 2-3 weeks of LEFT flank pain LEFT lower back pain and bilateral lumbar pain. He had a CT scan which demonstrated a 9 mm LEFT renal stone without definite hydronephrosis. He had no hydroureter. He did have some around his graft which may or may not be significant. His had no fever or chills. He states that he passed a single stone about 20 years ago without surgical intervention. We discussed his this [place] stone may not be causing his pain. Due to its size we did discuss intervention but not acutely here today. Considering his multiple conditions I suggest we perform this [facility]. We discussed flexible LEFT ureteroscopy with laser of the stone. We will place a stent perioperatively. Hopefully this can be performed as an outpatient. He understands and wishes to proceed. He does have transportation issues and we'll schedule for next week so he can arrange transportation. He was given a prescription for Percocet 5 mg number 20 Discharge diagnoses Problem List 1. Left nephrolithiasis 2. CAD (coronary artery disease) Status Chronic 3. Hypertension Status Chronic 4. Hyperlipidemia Status Chronic 5. Chronic obstructive pulmonary disease Status Chronic 6. Atrial fibrillation 7. Abdominal aortic aneurysm Status Chronic 8. Renal calculus, left Medications Medications: Discharge meds are as noted. Follow up Follow up in office in: 7 DAYS with: Deanne HANEY,Dave Lynn Comment: will see urology for op surg at [id number]
== END 2017-06-18 13:30 | disposition home or self-care (01) ==
LOC: 2ND 10:24
PROVIDERS: Emergency Medicine
DX: N20.0 Calculus of kidney (principal)
CPT/HCPCS: G0378; J2405

== ENCOUNTER 2017-06-25 18:24 | Emergency (ER) | payer MEDICARE, MEDICAID ==
[~2017-06-25] VITALS: Ht 188 cm; Wt 101.6 kg
--- NOTE | 2017-06-25 18:42 | Emergency Room Report ---
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 N Clinical Suspician of Infection? N Mental Status: 1 - Regular (Normal Baseline) Sepsis Risk:Low Sepsis Risk Have you (or family members/close friends) recently traveled outside the [place]? N If Yes, where/when: Have you had exposure to infectious disease within the past month? N TB? Other? Specify: Source patient, RN notes reviewed Exam Limitations no limitations Comment Pt reports he has a large stone in his left kidney. He saw Dr. Dave Kim on Jun 14 and he put a stent in left ureter. Now passing pure blood in his urine and having severe left flank pain. Cardiac Chest Pain Chest pain indicative of cardiac No ALLERGIES Coded Allergies: diphenhydramine (From BENADRYL ALLERGY) (Mild, NA-NAUSEA 05/23/17) pseudoephedrine (From SUDAFED) (Mild, NA-NAUSEA 05/23/17) nitroglycerin (From NITRO-BID) (05/23/17) Home Medications Active Scripts Ciprofloxacin HCl (Cipro 500MG TAB) 500 MG PO BID #14 TAB Prov: 05/24/17 Reported Medications Spironolactone (Aldactone) 25 MG PO DAILY CLOPIDOGREL BISULFATE (Clopidogrel) 75 MG PO DAILY POTASSIUM CHL (Potassium Chloride) 20 MEQ PO DAILY Ondansetron (Ondansetron Odt) 8 MG PO PRN PRN nausea Gabapentin (Gabapentin 800MG) 800 MG PO Q8 Lisinopril (Lisinopril 40MG) 40 MG PO DAILY METOPROLOL SUCCINATE XL (Metoprolol Succinate) 100 MG PO BID Apixaban (Eliquis) 5 MG PO DAILY ISOSORBIDE MONONITRATE (Isosorbide Mononitrate ER) 60 MG PO DAILY Albuterol Sulfate (Ventolin Hfa) 0.09 MG IH BID Atorvastatin Calcium (Atorvastatin 80MG) 80 MG PO QHS Sertraline Hydrochloride (Sertraline 100MG) 100 MG PO BID HYDROCODONE/ACETAMINOPHEN (Hydrocodon-Acetaminoph 7.5-300) 1 TAB PO PRN PRN PAIN OXYCODONE HCL/ACETAMINOPHEN (Oxycodon-Acetaminophen 7.5-325) 1 TAB PO PRN PRN PAIN TAMSULOSIN HCL (Tamsulosin 0.4MG) 0.4 MG PO QHS PROMETHAZINE HCL (Phenergan 25MG Tab (Geq)) 25 MG PO Q6HP PRN N/V AMITRIPTYLINE HCL (Amitriptyline Hydrochloride) 25 MG PO DAILY Multiple Vitamin (Multivitamin) 1 TAB PO DAILY Pantoprazole Sodium (Protonix) 40 MG PO DAILY History Medical History General CAD? Yes Angina: Yes MD: Yes Hypertension? Yes Hyperlipidemia? No CHF? Yes DVT? No PE? No COPD? Yes Asthma? No Anemia? No GERD? Yes Gastric ulcers? No GI Bleed? No Hernia? No Thyroid Problems? No Hypothyroidism? No CVA? No Seizures? No Diabetes? No Renal Insuffiency? No End Stage Renal Disease? No UTI? No Stones? No BPH? No GB Disease: No Nephritic Syndrome? No Asplenia? No Hepatitis? No Sickle Cell Disease? No Arthritis? Yes Migraines? No Cataracts? No Glaucoma? No MRSA? No HIV? No TB? No Anxiety? Yes Depression? Yes Cancer? No More? Yes Additional hx: A-FIB, TIA Immunization Hx DT/Tetanus Unknown Flu [id number] Pneumonia Received In Past Surgical Hx Previous Surgery?Y RT HIP REPLAC X2 LEFT LEG AND ANKLE SURGER GALL BLADDER REMOVED ANURISM OPEN HEART TRIPLE BYPASS HEART CATH 01/2014 STOMACH ANERSYM REPAIR CARDIAC STENTS HERNIA REPAIR Family History Family Hx Diabetes Yes CAD Yes Hypertension Yes Hyperlipidemia Yes Cancer Yes TB Yes Social History Smoking Hx Smoker: Current Every Day Smoker Tobacco: Yes Type Cigarettes Packs/day < 1 Pack Alcohol Alcohol: No Review of Systems All Other Systems Reviewed and Negative Constitutional see HPI Genitourinary see HPI. Physical Exam Vital Signs Vital Signs Date Time Temp Pulse Resp B/P Pulse O2 O2 Flow FiO2 Ox Delivery Rate 06/25 2038 97.9 80 20 96/47 96 06/25 1855 18 06/25 1829 98.2 90 18 135/82 98 General Appearance normal appearance, severe distress Respiratory Status No: respiratory distress. Lung Sounds bilateral: normal breath sounds. 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 Yes Itz was queried for this patient? No Reason not queried - emergent pt cond=no time Risks/benefits of using a controlled substance for treatment were not discussed w/pt Results/Orders Laboratory Tests 06/25/17 2030: Urine Color Pending, Urine Appearance Pending, Urine pH Pending, Ur Specific [place] Pending 06/25/17 1900: Sodium 131 L, Potassium 2.9 *L, Chloride 102, Carbon Dioxide 26, BUN 12, Creatinine 1.1, Estimated Creat Clear 112, Estimated GFR (MDRD) 70, Glucose 96, Calcium 9.1, Total Bilirubin 0.6, AST 15, ALT 21, Alkaline Phosphatase 104, Total Protein 7.3, Albumin 3.6, Globulin 3.7 H, Albumin/Globulin Ratio 1.0 L, WBC 9.6, RBC 4.34 L, Hgb 13.4 L, Hct 38.7 L, MCV 89.2, RDW 13.8, Plt Count 198, MPV 7.1 L, Gran % 61.9, Gran # 6.0, Lymphocytes % 26.9, Monocytes % 5.8, Eosinophils % 5.1, Basophils % 0.3, Lymphocytes # 2.6, Monocytes # 0.6, Eosinophils # 0.5 H, Basophils # 0.0, PUBS MCHC 34.7, MCH 30.9 Current Medication Orders Sig/Sudhakar Start time Last Medication Dose Route Stop Time Status Admin Sodium Chloride 1,000 ML .STK-MED ONE 06/25 2032 DC IV Ondansetron HCl 0 .STK-MED ONE 06/25 1855 DC .ROUTE Hydromorphone HCl 0 .STK-MED ONE 06/25 1854 DC .ROUTE Hydromorphone HCl 0.5 MG ONCE ONE 06/25 1845 DC 06/25 IV 06/25 Ondansetron HCl 4 MG ONCE ONE 06/25 1845 DC 06/25 IV 06/25 Sodium Chloride 10 ML PRN PRN 06/25 1845 AC IV 06/26 1842 Sodium Chloride 1,000 ML .Q1H1M 06/25 1845 DC 06/25 IV 06/25 Sodium Chloride 10 ML PRN PRN 06/25 1845 AC IV 06/26 1842 Orders Procedure Date/time Status DIET-NOTHING BY MOUTH 06/[address] ABD & PELVIS W/O CONTRAST 06/[address] ABD/PELVIS REQ 06/25 1843 Complete IV SALINE LOCK 06/25 1843 Active URINALYSIS/COMPLETE 06/25 1843 Active CBC WITH AUTO DIFF 06/25 1843 Complete CHEM 12 PROFILE 06/25 1843 Complete Departure Departure Time of Disposition 2042 Disposition DC Home or Self Care(routine) Clinical Impression Primary Impression: Renal colic on left side Secondary Impressions: Hypokalemia Condition STABLE Referrals Deanne HANEY,Dave Lynn Patient Instructions DI for Kidney Stones, Kidney Stones (Alternative Therapy), Kidney Stones -- Adult Additional Instructions pT ADVISED THAT DR KIM OFFICE IS SUPPOSED TO CALL HIM TOMORROW AND IF THEY DO NOT CALL BY 2PM THE PT NEEDS TO CALL DR KIM OFFICE HIMSELF Discharge Counseling Counseled pt/family regarding diagnosis, test results, medications/RX, home care, follow up needs Prescriptions Current Visit Scripts Potassium Chloride (K-Dur) 20 MEQ PO BID #20 TER Hydromorphone Hcl (Dilaudid 2MG TAB) 2 MG PO Q3HP PRN PAIN #12 TAB ED Critical Care Critical Care No If Critical Care minutes are documented, the time involved in the performance of seperately reportable procedures was not counted toward critical care time documented. I directly delivered medical care to this critically ill and/or injured patient. Timely evaluation and treatment was necessary to address the significant organ system(s) dysfunction present in this patient. at 2047
[2017-06-25 19:09] LABS: HEMOGLOBIN 13.4 g/dL (14.1-18.0); LYMPH # 2.6 K/mm3 (0.7-4.5); LYMPH % 26.9 % (10-50)
[2017-06-25 20:38] LABS: URINE BILIRUBIN - DIPSTICK NEGATIVE (NEG); URINE BLOOD 3+ (NEG)
[2017-06-25 21:21] VITALS: BP 118/58
[2017-06-25 21:28] LABS: URINE SQUAMOUS CELLS OCC #/hpf (OCC)
--- NOTE | 2017-06-26 05:15 | RADIOLOGY REPORT PS360 ---
CT ABD PELVIS W/O CONTRAST CLINICAL INDICATION: Left flank pain with hematuria LT FLANK PAIN, HEMATURIA ORDERING PHYSICIAN: Tucker Sanchez MD PATIENT AGE: 51 years COMPARISON: 06/17/2017 TECHNIQUE: Axial images obtained with sagittal and coronal reformats. PROCEDURE: Oral Contrast: None IV Contrast: None . FINDINGS: Lung bases are clear. Prior cholecystectomy without biliary dilatation. The liver, spleen, adrenal glands, and pancreas are unremarkable. A left ureteral stent has been inserted. The proximal aspect overlies the left renal pelvis and distal aspect is curled in the urinary bladder. A 10 mm stone lies lateral to the proximal aspect of the ureteral stent at the proximal left ureter. No hydronephrosis. There is minimal stranding of the periureteral fat. There are bilateral renal cortical cysts. Endovascular stent is once again noted with dilatation of the [place] infrarenal bone aorta 4.8 x 4.5 cm which is stable. No evidence of appendicitis or diverticulitis. No intestinal obstruction or free air. Artifact is present from right hip prosthesis. IMPRESSION: 1. Interval insertion of left ureteral stent in good position. Minimal thickening of the left periureteral fat has developed in the interval and could be due to inflammation/infection, or a small blood. 2. 10 mm stone is in the proximal left ureter without hydronephrosis. 3. No change prior aortoiliac stent graft with aneurysmal dilatation of the [place] aorta 4.8 x 4.5 cm unchanged
--- NOTE | 2017-06-26 05:15 | RADIOLOGY REPORT PS360 ---
CT ABD PELVIS W/O CONTRAST CLINICAL INDICATION: Left flank pain with hematuria LT FLANK PAIN, HEMATURIA ORDERING PHYSICIAN: Tucker Sanchez MD PATIENT AGE: 51 years COMPARISON: 06/17/2017 TECHNIQUE: Axial images obtained with sagittal and coronal reformats. PROCEDURE: Oral Contrast: None IV Contrast: None . FINDINGS: Lung bases are clear. Prior cholecystectomy without biliary dilatation. The liver, spleen, adrenal glands, and pancreas are unremarkable. A left ureteral stent has been inserted. The proximal aspect overlies the left renal pelvis and distal aspect is curled in the urinary bladder. A 10 mm stone lies lateral to the proximal aspect of the ureteral stent at the proximal left ureter. No hydronephrosis. There is minimal stranding of the periureteral fat. There are bilateral renal cortical cysts. Endovascular stent is once again noted with dilatation of the [place] infrarenal bone aorta 4.8 x 4.5 cm which is stable. No evidence of appendicitis or diverticulitis. No intestinal obstruction or free air. Artifact is present from right hip prosthesis. IMPRESSION: 1. Interval insertion of left ureteral stent in good position. Minimal thickening of the left periureteral fat has developed in the interval and could be due to inflammation/infection, or a small blood. 2. 10 mm stone is in the proximal left ureter without hydronephrosis. 3. No change prior aortoiliac stent graft with aneurysmal dilatation of the [place] aorta 4.8 x 4.5 cm unchanged
== END 2017-06-25 21:22 | disposition home or self-care (01) ==
LOC: ER 18:24
PROVIDERS: General Practice
DX: N23 Unspecified renal colic (principal); E87.6 Hypokalemia; Z87.442 Personal history of urinary calculi; I25.10 Atherosclerotic heart disease of native coronary artery without angina pectoris; Z98.61 Coronary angioplasty status; Z95.1 Presence of aortocoronary bypass graft; I25.2 Old myocardial infarction; I11.0 Hypertensive heart disease with heart failure; I50.9 Heart failure, unspecified; J44.9 Chronic obstructive pulmonary disease, unspecified; K21.9 Gastro-esophageal reflux disease without esophagitis; I48.91 Unspecified atrial fibrillation; Z79.01 Long term (current) use of anticoagulants; Z86.73 Personal history of transient ischemic attack (TIA), and cerebral infarction without residual deficits; F41.9 Anxiety disorder, unspecified; F32.9 Major depressive disorder, single episode, unspecified; F17.210 Nicotine dependence, cigarettes, uncomplicated; Z79.02 Long term (current) use of antithrombotics/antiplatelets; Z79.891 Long term (current) use of opiate analgesic; Z79.899 Other long term (current) drug therapy

== ENCOUNTER 2017-07-19 18:03 | Emergency (ER) | payer MEDICARE, MEDICAID ==
[~2017-07-19] VITALS: Ht 188 cm; Wt 101.6 kg
[~2017-07-19 18:03] MED LIST changes: +ALDACTONE25 MG PO; +AMITRIPTYLINE H25 MG PO; +CLOPIDOGREL75 M1 PO; +DILAUDID2 MG PO; +HYDROCODONE BIT1 T51 PO; +K-DUR 2020 MEQ PO; +K-DUR 20MEQ TA20 MEQ PO; +LISINOPRIL40 MG PO; +ONDANSETRON ODT8 MG PO; +OXYCODONE HYDRO1 TA1 PO; +TAMSULOSIN HYD0.4 MG PO
--- NOTE | 2017-07-19 18:07 | Emergency Room Report ---
History of Present Illness Time Seen by 1805 Presenting Problem in Triage Pt arrived:Wheelchair Presenting Problem:PT REPORTS BEGAN HAVING CHEST PAIN THAT IS SHARP AND INTERMITTENT IN NATURE WITH PRESSURE THAT IS CONSTANT. STATES PAIN BEGAN WHILE "FIGHTING" WITH HIS DOG. 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 N Clinical Suspician of Infection? N Mental Status: 1 - Regular (Normal Baseline) Sepsis Risk:Low Sepsis Risk Have you (or family members/close friends) recently traveled outside the [place]? N If Yes, where/when: Have you had exposure to infectious disease within the past month? N TB? Other? Specify: Comment The patient complains of chest pain. He says it started at 5 PM proximally 90 minutes ago. He says it is in his LEFT anterior chest and radiates down his LEFT arm and into his jaw and is associated with nausea, diaphoresis, and shortness of breath. He says that he has nitroglycerin at home but it is at another residence and also he cannot take it because it makes him sick. On review of the patient's record it appears that he has known coronary artery disease, chronic atrial fibrillation with LEFT bundle branch block, and a chronically elevated troponin. If he was supposed to go to [facility] for a cardiac biopsy at one point, but he says it was not done because did not take his insurance. Rn Radiation Oncology is Dr. Barros. Primary care physician is Dr. Madrid. ALLERGIES Coded Allergies: diphenhydramine (From BENADRYL ALLERGY) (Mild, NA-NAUSEA 05/23/17) pseudoephedrine (From SUDAFED) (Mild, NA-NAUSEA 05/23/17) nitroglycerin (From NITRO-BID) (05/23/17) (Aries Taylor MD) Source patient, RN notes reviewed, old records Exam Limitations no limitations Timing/Duration this evening Severity moderate Home Medications Reported Medications Spironolactone (Aldactone) 25 MG PO DAILY CLOPIDOGREL BISULFATE (Clopidogrel) 75 MG PO DAILY POTASSIUM CHL (Potassium Chloride) 20 MEQ PO DAILY Ondansetron (Ondansetron Odt) 8 MG PO PRN PRN nausea Gabapentin (Gabapentin 800MG) 800 MG PO Q8 Lisinopril (Lisinopril 40MG) 40 MG PO DAILY METOPROLOL SUCCINATE XL (Metoprolol Succinate) 100 MG PO BID Apixaban (Eliquis) 5 MG PO DAILY ISOSORBIDE MONONITRATE (Isosorbide Mononitrate ER) 60 MG PO DAILY Albuterol Sulfate (Ventolin Hfa) 0.09 MG IH BID Atorvastatin Calcium (Atorvastatin 80MG) 80 MG PO QHS Sertraline Hydrochloride (Sertraline 100MG) 100 MG PO BID AMITRIPTYLINE HCL (Amitriptyline Hydrochloride) 25 MG PO DAILY Multiple Vitamin (Multivitamin) 1 TAB PO DAILY Pantoprazole Sodium (Protonix) 40 MG PO DAILY (Leonardo Madrid MD) History Medical History General CAD? Yes Angina: Yes NM: Yes Hypertension? Yes Hyperlipidemia? No CHF? Yes DVT? No PE? No COPD? Yes Asthma? No Anemia? No GERD? Yes Gastric ulcers? No GI Bleed? No Hernia? No Thyroid Problems? No Hypothyroidism? No CVA? No Seizures? No Diabetes? No Renal Insuffiency? No End Stage Renal Disease? No UTI? No Stones? No BPH? No GB Disease: No Nephritic Syndrome? No Asplenia? No Hepatitis? No Sickle Cell Disease? No Arthritis? Yes Migraines? No Cataracts? No Glaucoma? No MRSA? No HIV? No TB? No Anxiety? Yes Depression? Yes Cancer? No More? Yes Additional hx: A-FIB, TIA Immunization Hx DT/Tetanus Unknown Flu [id number] Pneumonia Received In Past Surgical Hx Previous Surgery?Y RT HIP REPLAC X2 LEFT LEG AND ANKLE SURGER GALL BLADDER REMOVED ANURISM OPEN HEART TRIPLE BYPASS HEART CATH 01/2014 STOMACH ANERSYM REPAIR CARDIAC STENTS X8 HERNIA REPAIR Family History Family Hx Diabetes Yes CAD Yes Hypertension Yes Hyperlipidemia Yes Cancer Yes TB Yes Social History Smoking Hx Packs/day < 1 Pack Alcohol Alcohol: No Additionial History Additional History Cardiac cath done here February 13, 2017 showed diffuse coronary artery disease all of which was [id number]. (Aries Taylor MD) Social History Drugs none (Leonardo Madrid MD) Review of Systems All Other Systems Reviewed and Negative Constitutional diaphoresis Respiratory shortness of breath Cardiovascular chest pain Gastrointestinal nausea (Aries Taylor MD) Skin denies rash Psychiatric/Neurological denies seizure (Leonardo Madrid MD) Physical Exam Vital Signs Vital Signs Date Time Temp Pulse Resp B/P Pulse O2 O2 Flow FiO2 Ox Delivery Rate 07/19 2005 83 20 139/92 96 07/19 1935 84 20 126/47 95 07/199 83 20 119/64 97 07/195 20 07/19 1803 98.1 88 18 150/75 96 General Appearance no apparent distress Eye Exam - bilateral eye normal exam, bilateral eye PERRL, bilateral eye EOMI Ear, Nose, Throat hearing grossly normal, normal ENT inspection Neck normal inspection, non-tender, supple, full range of motion Respiratory Status Yes: trachea midline, chest symmetrical, tender on palpation. No: respiratory distress. Lung Sounds bilateral: normal breath sounds, lungs clear. 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 He does not know how long it has been there or how he got the bruise. (Aries Taylor MD) Strength 4 Upper Ext (L), 4 Upper Ext (R), 4 Lower Ext (L), 4 Lower Ext (R) (Leonardo Madrid MD) Medical Decision Making LABS/Meds/Orders Pt receiving controlled substance in ED? Yes Itz was queried for this patient? No Reason not queried - emergent pt cond=no time Results/Orders Laboratory Tests 07/19/17 1810: Sodium 142, Potassium 3.1 L, Chloride 108 H, Carbon Dioxide 26, BUN 7, Creatinine 1.1, Estimated Creat Clear 112, Estimated GFR (MDRD) 70, Glucose 113 H, Calcium 9.2, Total Bilirubin 0.5, AST 19, ALT 20, Alkaline Phosphatase 107, Creatine Kinase 44, CK-MB (CK-2) Rel Index 2.5, CK and CKMB Interp 1.1, Troponin I 0.15 H, Total Protein 7.4, Albumin 3.8, Globulin 3.6 H, Albumin/Globulin Ratio 1.1, WBC 8.2, RBC 4.42 L, Hgb 13.7 L, Hct 39.4 L, MCV 89.2, RDW 14.4, Plt Count 170, MPV 7.9, Gran % 55.5, Gran # 4.5, Lymphocytes % 36.0, Monocytes % 5.5, Eosinophils % 2.6, Basophils % 0.4, Lymphocytes # 3.0, Monocytes # 0.5, Eosinophils # 0.2, Basophils # 0.0, PUBS MCHC 34.8, MCH 31.1, Digoxin < 0.20 L Current Medication Orders Sig/Sudhakar Start time Last Medication Dose Route Stop Time Status Admin Potassium Chloride 0 .STK-MED ONE 07/19 1901 DC PO Potassium Chloride 40 MEQ ONCE ONE 07/19 1900 DC 07/19 PO 07/19 1901 190 Morphine Sulfate 0 .STK-MED ONE 07/19 1853 DC .ROUTE Ondansetron HCl 0 .STK-MED ONE 07/19 1853 DC .ROUTE Morphine Sulfate 4 MG ONCE ONE 07/19 1845 DC 07/19 IV 07/19 184 1855 Ondansetron HCl 4 MG ONCE ONE 07/19 184 DC 07/19 IV 07/19 184 185 Sodium Chloride 10 ML PRN PRN 07/19 181 AC IV 07/20 180 Orders Procedure Date/time Status DIGOXIN 07/19 185 Complete 12 LEAD EKG-ALEJANDRA (INITIAL) 07/19 1804 Active ELECTROCARDIOGRAM REQUEST 07/19 1804 Active CHEST-PORTABLE 07/19 1804 Active IV SALINE LOCK 07/19 1804 Active TRAVEL REGISTERED NURSE PACU 07/19 1804 Active CBC WITH AUTO DIFF 07/19 1804 Complete CARDIAC ENZYMES 07/19 1804 Complete CHEM 12 PROFILE 07/19 1804 Complete CM/EKG CM/EKG Comments EKG interpreted by Aries Taylor MD: Rhythm: Atrial fibrillation Rate: 84 [place]: normal Ectopy: none Conduction: LEFT bundle branch block ST Segment Changes: none T Wave Changes: none Q Waves: none No evidence of acute ischemia or injury Prior electrocardiagrams reviewed. No change from prior tracings. XRAY/CT/US XRAY/CT/US XRAY chest Comment Chest x-ray interpreted by Aries Taylor M.D. No infiltrate, pneumothorax, pleural effusion, or wide mediastinum. Progress - 8:00 PM: At shift change, I have discussed the patient with Dr. Madrid, who will assume care of the patient at this time. I have discussed all clinical information including history, physical and diagnostic study results. Preliminary diagnoses based on information available at this point have been recorded by me. Controlled substance administration and critical care statement are also preliminary, as of the time of handoff. (Aries Taylor MD) Departure Departure Clinical Impression Primary Impression: Chest pain Qualifiers: Chest pain type: precordial pain Qualified Code: R07.2 - Precordial pain Condition STABLE ED Critical Care Critical Care No (Claudia HANEY, Aries) Departure Disposition DC Home or Self Care(routine) Referrals Julius HANEY,Franko Kang (Family) i saw pt and discussed with dr barros Patient Instructions DI for Chest Pain Additional Instructions see dr barros saturday at 900 am Discharge Counseling Counseled pt/family regarding diagnosis, test results, medications/RX, follow up needs Prescriptions Current Visit Scripts OXYCODONE HCL/ACETAMINOPHEN (Percocet 5-325 MG Tablet) 1 TAB PO TID #10 TAB (Leonardo Madrid MD) at 2019 at 2044
[2017-07-19 18:18] LABS: HEMOGLOBIN 13.7 g/dL (14.1-18.0)
[2017-07-19] MEDS ORDERED: PERCOCET1 TAB PO (20:42)
[2017-07-19 21:23] VITALS: BP 117/88
--- NOTE | 2017-07-20 07:14 | RADIOLOGY REPORT PS360 ---
CHEST-PORTABLE HISTORY: CHEST PAIN ORDERING PHYSICIAN: Aries Taylor MD PATIENT AGE: 51 years COMPARISON: 06/17/2017 FINDINGS: Prior median sternotomy. No evidence of CHF. No lobar consolidation or collapse. No acute bony anomalies. IMPRESSION: Prior CABG, no change with no acute finding.
--- OUTSIDE RECORDS SUMMARY | 2017-07-20 21:54 | External Medical Summary Rpt | CCD ---
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 0.0-0.4 complet hil # 013 K/mm3 ed Bld 12:09 Auto Basophi 12-30-2 0.0 0-0.2 complet ls # 013 K/MM3 ed Bld 12:09 Auto COMPREHENSIVE METABOLIC PANEL (09-08-2013 14:42) Glucose 107 74-106 complet 013 mg/dL ed Bld-mCn 14:42 c BUN 7 mg/dL 7-18 complet Bld-mCn 013 ed c 14:42 Creat 1.1 0.8-1.3 complet SerPl-m 013 mg/dL ed Cnc 14:42 Creat 136 50-200 complet Cl 013 ML/MIN ed predict 14:42 ed SerPl C-G-vRa te GFR/BSA 71 Greater complet .pred 013 ML/MIN than ed SerPl 14:42 60 Schwart z-vRate Sodium 140 136-145 complet SerPl-s 013 mmoL/L ed Cnc 14:42 Potassi 3.1 3.5-5.1 complet um 013 mmoL/L ed SerPl-s 14:42 Cnc Chlorid 12-03-2 104 98-107 complet e 013 mmoL/L ed SerPl-s 14:42 Cnc CO2 29 21.0-32 complet SerPl-s 013 mmoL/L .0 ed Cnc 14:42 Calcium 2 9.0 8.5-10. complet 013 mg/dL 1 ed SerPl-m 14:42 Cnc Prot 7.4 6.4-8.2 complet SerPl-m 013 gm/dL ed Cnc 14:42 Albumin 2 3.4 3.4-5.0 complet 013 gm/dL ed SerPl-m 14:42 Cnc Globuli 4.0 1.3-3.2 complet n 013 gm/dL ed Ser-mCn 14:42 c Albumin 0.9 UNK 1.1-1.8 complet /Glob 013 ed SerPl-m 14:42 Rto Bilirub 0.6 0.2-1.0 complet 013 mg/dL ed SerPl-m 14:42 Cnc AST 33 U/L 15-37 complet SerPl-c 013 ed Cnc 14:42 ALT 40 U/L 30-65 complet SerPl-c 013 ed Cnc 14:42 ALP 110 U/L 50-136 complet SerPl-c 013 ed Cnc 14:42 CBC with AUTO DIFF (09-08-2013 14:42) WBC # 09-08-2 5.6 4.8-10. complet Bld 013 K/MM3 8 ed Auto 14:42 RBC # 09-08-2 4.77 4.6-6.2 complet Bld 013 M/mm3 ed Auto 14:42 Hgb 09-08-2 15.4 14.1-18 complet Bld-mCn 013 g/dL .0 ed c 14:42 Hct Fr 45.1 % 42.0-52 complet Bld 013 .0 ed 14:42 MCV RBC 94.5 fl 82.2-97 complet 013 .8 ed 14:42 MCH RBC 32.3 pg 27-31.2 complet Qn 013 ed Auto 14:42 MEAN 12-03-2 34.2 31.8-35 complet CORPUSC 013 g/dl .4 ed ULAR 14:42 HGB CONC RDW RBC 15.3 % 11.5-17 complet Auto 013 .5 ed 14:42 Platele 09-08-2 216 142-424 complet t Bld 013 K/mm3 ed Ql 14:42 Manual MEAN 7.4 fl 7.4-10. complet PLATELE 013 4 ed T 14:42 VOLUME Granulo 2 49.7 % 37.0-80 complet cytes 013 .0 ed Fr Bld 14:42 Auto LYMPH % 09-08-2 41.2 % 10-50 complet 013 ed 14:42 Monocyt 09-08-2 6.2 % 1.7-9.3 complet es Fr 013 ed Bld 14:42 Auto Eosinop 09-08-2 2.4 % 0.1-12. complet hil Fr 013 0 ed Bld 14:42 Auto Basophi 09-08-2 0.5 % 0.1-2.0 complet ls Fr 013 ed Bld 14:42 Auto Granulo 09-08-2 2.8 1.3-8.0 complet cytes # 013 K/mm3 ed Bld 14:42 Auto Lymphoc 09-08-2 2.3 0.7-4.5 complet ytes Fr 013 K/mm3 ed Bld 14:42 Auto Monocyt 09-08-2 0.4 0.1-1.0 complet es # 013 K/mm3 ed Bld 14:42 Auto Eosinop 09-08-2 0.1 0.0-0.4 complet hil # 013 K/mm3 ed Bld 14:42 Auto Basophi 03-2 0.0 0-0.2 complet ls # 013 K/MM3 ed Bld 14:42 Auto COMPREHENSIVE METABOLIC PANEL (09-03-2013 22:50) Glucose 126 74-106 complet 013 mg/dL ed Bld-mCn 22:50 c BUN 4 mg/dL 7-18 complet Bld-mCn 013 ed c 22:50 Creat 1.1 0.8-1.3 complet SerPl-m 013 mg/dL ed Cnc 22:50 Creat 151 50-200 complet Cl 013 ML/MIN ed predict 22:50 ed SerPl C-G-vRa te GFR/BSA 71 Greater complet .pred 013 ML/MIN than ed SerPl 22:50 60 Schwart z-vRate Sodium 138 136-145 complet SerPl-s 013 mmoL/L ed Cnc 22:50 Potassi 3.1 3.5-5.1 complet um 013 mmoL/L ed SerPl-s 22:50 Cnc Chlorid 102 98-107 complet e 013 mmoL/L ed SerPl-s 22:50 Cnc CO2 26 21.0-32 complet SerPl-s 013 mmoL/L .0 ed Cnc 22:50 Calcium 8.8 8.5-10. complet 013 mg/dL 1 ed SerPl-m 22:50 Cnc Prot 7.9 6.4-8.2 complet SerPl-m 013 gm/dL ed Cnc 22:50 Albumin 3.7 3.4-5.0 complet 013 gm/dL ed SerPl-m 22:50 Cnc Globuli 2 4.2 1.3-3.2 complet n 013 gm/dL ed Ser-mCn 22:50 c Albumin 0.9 UNK 1.1-1.8 complet /Glob 013 ed SerPl-m 22:50 Rto Bilirub 0.6 0.2-1.0 complet 013 mg/dL ed SerPl-m 22:50 Cnc AST 44 U/L 15-37 complet SerPl-c 013 ed Cnc 22:50 ALT 2 45 U/L 30-65 complet SerPl-c 013 ed Cnc 22:50 ALP 2 127 U/L 50-136 complet SerPl-c 013 ed Cnc 22:50 CBC with AUTO DIFF (09-03-2013 22:50) WBC # 09-03-2 9.0 4.8-10. complet Bld 013 K/MM3 8 ed Auto 22:50 RBC # 09-03-2 4.89 4.6-6.2 complet Bld 013 M/mm3 ed Auto 22:50 Hgb 09-03-2 16.0 14.1-18 complet Bld-mCn 013 g/dL .0 ed c 22:50 Hct Fr 09-03-2 45.5 % 42.0-52 complet Bld 013 .0 ed 22:50 MCV RBC 09-03-2 93.0 fl 82.2-97 complet 013 .8 ed 22:50 MCH RBC 09-03-2 32.6 pg 27-31.2 complet Qn 013 ed Auto 22:50 MEAN 09-03-2 35.1 31.8-35 complet CORPUSC 013 g/dl .4 ed ULAR 22:50 HGB CONC RDW RBC 09-03-2 15.2 % 11.5-17 complet Auto 013 .5 ed 22:50 Platele 09-03-2 218 142-424 complet t Bld 013 K/mm3 ed Ql 22:50 Manual MEAN 09-03-2 7.2 fl 7.4-10. complet PLATELE 013 4 ed T 22:50 VOLUME Granulo 09-03-2 68.4 % 37.0-80 complet cytes 013 .0 ed Fr Bld 22:50 Auto LYMPH % 11-28-2 24.5 % 10-50 complet 013 ed 22:50 Monocyt 11-28-2 4.9 % 1.7-9.3 complet es Fr 013 ed Bld 22:50 Auto Eosinop 11-28-2 1.7 % 0.1-12. complet hil Fr 013 0 ed Bld 22:50 Auto Basophi 11-28-2 0.4 % 0.1-2.0 complet ls Fr 013 ed Bld 22:50 Auto Granulo 11-28-2 6.2 1.3-8.0 complet cytes # 013 K/mm3 ed Bld 22:50 Auto Lymphoc 11-28-2 2.2 0.7-4.5 complet ytes Fr 013 K/mm3 ed Bld 22:50 Auto Monocyt 11-28-2 0.4 0.1-1.0 complet es # 013 K/mm3 ed Bld 22:50 Auto Eosinop 11-28-2 0.2 0.0-0.4 complet hil # 013 K/mm3 ed Bld 22:50 Auto Basophi 11-28-2 0.0 0-0.2 complet ls # 013 K/MM3 ed Bld 22:50 Auto Procedures Procedure DOS Code Location Performer Comment ECG 21858 [place] [facility] MEDICAL W/LEAST G 12 LDS W/I&R GROUND A0425 [facility] STATUTE EMS EMS MILE ECG 03080 [place] [facility] THO ROUTINE [facility] ECG MEDICAL W/LEAST G 12 LDS I&R ONLY AMB A0427 [facility] SERVICE 4 [facility] EMERGENCY EMS [place] [address] [facility] [place] HEAD/BRAI 4 RADIOLOGY LD IV ALL N W/O CONTRAST MATERIAL RADIOLOGI 58755 [facility] [place] BERTIN C 4 RADIOLOGY JORGITO EXAMINATI ON CHEST SINGLE VIEW FRONTAL ECG 81012 STU [facility] PHILLY ROUTINE 4 ECG W/LEAST 12 LDS I&R ONLY RADIOLOGI 30692 [facility] [place] CONTRERAS C 4 RADIOLOGY RAY EXAMINATI ON CHEST SINGLE VIEW FRONTAL RADEX 73455 [facility] SPINE 4 [facility] LUMBOSACR INC INC AL MINIMUM 4 VIEWS RADIOLOGI 10232 [facility] C 4 [facility] EXAMINATI INC INC ON KNEE 3 VIEWS RADIOLOGI 08127 [facility] [place] MELGAR C 4 RADIOLOGY CAR EXAMINATI ON CHEST SINGLE VIEW FRONTAL GROUND A0425 [facility] [address] STATUTE EMS EMS MILE ECG 59796 BELL[facility] ESCALANTE ROUTINE 4 [facility] CLINIC W/LEAST PSC 12 LDS I&R ONLY AMB A[address] EMERGENCY EMS EMS TRANSPORT LEVEL 1 ECG 07378 [facility] ANJUR-ROSSY ROUTINE 4 [facility] ECG MEDICAL W/LEAST G 12 LDS W/I&R AMB A[address] EMERGENCY EMS EMS TRANSPORT LEVEL 1 GROUND A0425 [facility] 4 [facility] STAT[facility] EMS EMS MILE ECG 76720 MARCEL LINK SOKAN BAB ROUTINE 4 ECG W/LEAST 12 LDS I&R ONLY RADIOLOGI 63144 [facility] [place] [facility] EX[facility] 4 RADIOLOGY SHA CHEST 2 VIEWS FRONTAL&L ATERAL MRI 33030 NEURODIAG BRODY NATHALIE SPINAL 4 NOSTICS CANAL INC LUMBAR W/O CONTRAST MATERIAL RADEX 71963 [facility] 2 4 MEDICAL YADI VIEWS IMAGING ASS RADEX 40069 [place] [facility] WRIST 4 MEDICAL YADI COMPLETE IMAGING MINIMUM 3 ASS VIEWS WRIST L3908 [facility] INC. HAND 4 ORTHOSIS EXT CONTROL COCK-UP PREFAB INJECTION J1100 SACHIN STEPHENSON 4 NATHALIE NATHALIE DEXAMETHO SONE SODIUM PHOSPHATE 1 MG INJECTION J0696 SACHIN STEPHENSON 4 NATHALIE NATHALIE CEFTRIAXO NE SODIUM PER 250 MG RADEX 05793 [facility] SPINE 4 Y Y [facility] AL 2/3 VIEWS ECG 48447 [facility] ANJUR-ROSSY ROUTINE 4 [facility] ECG MEDICAL W/LEAST G 12 LDS W/I&R PROTHROMB 54882 [facility] IN TIME 4 [facility] MEDICAL G RADIOLOGI 40817 [place] [facility] C EXAM 4 MEDICAL YADI CHEST 2 IMAGING VIEWS ASS FRONTAL&L ATERAL SBSQ 61121 [facility] OBSERVATI 4 [facility] ON MEDICAL CARE/DAY G 35 MINUTES CATH PLMT 82410 [facility] GRACY L HRT & 4 [facility]KITA ARTS MEDICAL W/NJX & G ANGIO IMG S&I THER 70396 BI PAT PROPH/DX 4 [facility] SEQL IV PUSH SBST/DRUG FAC ECG 89712 MARCEL LINK SOKAN BAB ROUTINE 4 ECG W/LEAST 12 LDS I&R ONLY COMPREHEN 98407 BI PAT SIVE 4 [facility] PANEL INITIAL 14693 [place] WESLEYUAMAIRANI OBSERVATI 4 [facility] ON MEDICAL CARE/DAY G 70 MINUTES GROUND A0425 [facility] MILEAGE 4 [facility] STATUTE EMS EMS MILE AMB A0422 KEIRA CROCKETT OXYGEN&O[address] [place] [address] SUPPLIES AMBULANCE AMBULANCE LIFE SE SE SUSTAININ G SITUATION AMB A0427 [facility] SERVICE 4 [facility] EMERGENCY EMS EMS TRANSPORT LEVEL 1 THERAPEUT 08650 [facility] IC 4 [facility] [place] [address] [facility] TROPONIN 4 [facility] KWADWO INJECTION J2270 [facility] MORPHINE 4 [facility] UP TO 10 MG PROTHROMB 88590 [facility] IN TIME 4 [facility] CREATINE 22278 [facility] KINASE 4 [facility] CREATINE 43986 [facility] KINASE MB 4 [facility] ONLY COLLECTIO 40855 [facility] N VENOUS 4 [facility] VENIPUNCT URE THER 39866 [facility] PROPH/DX 4 [facility] HOSPITAL PUSH SINGLE/1S T SBST/DRUG ECG 43531 [facility] ROUTINE 4 [facility] HOSPITAL W/LEAST 12 LDS TRCG ONLY W/O I&R BLOOD 14574 [facility] COUNT 4 [facility] AUTO&AUTO DIFRNTL WBC INJECTION J1100 SACHIN SACHIN 4 NATHALIE NATHALIE DEXAMETHO SONE SODIUM PHOSPHATE 1 MG PROTHROMB 86646 [place] ANJUR[facility] IN TIME 4 [facility] MEDICAL G ECG 96306 [place] ANJUR-[facility] ROUTINE 4 [facility] ECG MEDICAL W/LEAST G 12 LDS W/I&R OBSERVATI 65005 [place] DUBOSE ON CARE 4 [facility] ANKITA DISCHARGE MEDICAL G MANAGEMEN T ECG 03816 [place] COLLADO THO ROUTINE 4 [facility] ECG MEDICAL W/LEAST G 12 LDS I&R ONLY INITIAL 40363 [place] DUBOSE OBSERVATI 4 [facility] ON MEDICAL CARE/DAY G 70 MINUTES ECHO 50602 [place] ANJUR-ROSSY TTHRC R-T 4 [facility] 2D MEDICAL W/WOM-MOD G E COMPL SPEC&[place] [address] [facility] TROPONIN 4 [facility] KWADWO PROTHROMB 57794 [facility] IN TIME 4 [facility] CREATINE 64029 [facility] KINASE 4 [facility] ECG 56278 [facility] ROUT[facility] 4 AYANNA DARRIN ECG EMERGENCY W/LEAST PHYSI 12 LDS I&R ONLY ECG 37617 [facility] ROUTINE 4 [facility] W/LEAST 12 LDS TRCG ONLY W/O I&R THER 11103 [facility] PROPH/DX 4 [facility] HOSPITAL PUSH SINGLE/1S T SBST/DRUG COLLECTIO 21183 [facility] N VENOUS 4 [facility] VENIPUNCT URE CREATINE 26798 [facility] KINASE MB 4 [facility] HOSP[facility] ONLY RADIOLOGI 56947 [facility] [place] JENN MAT C 4 RADIOLOGY EXAMINATI ON CHEST SINGLE VIEW FRONTAL AMB A0422 [facility] MALTESE OXYGEN&O2 4 MEDICAL MEDICAL SUPPLIES RESPONSE RESPONSE LIFE SUSTAININ G SITUATION COMPREHEN 30145 BI COCHRANYUNIEREVAN SIVE 4 [facility] PANEL GROUND A0425 [facility] MALTESE MILEAGE 4 MEDICAL MEDICAL PER RESPONSE RESPONSE STATUTE MILE CRITICAL 54451 [facility] 4 AYANNA DARRIN ILL/INJUR EMERGENCY ED PHYSI PATIENT INIT 30-74 MIN THER 48704 [facility] PROPH/DX 4 [facility] HOSPITAL SEQL IV PUSH SBST/DRUG FAC BLOOD 11960 [facility] COUNT 4 [facility] AUTO&AUTO DIFRNTL WBC INJECTION J3301 KEIRA KHAN 4 [facility] LONE [facility]ALTH ACETONIDE NOS 10 MG THERAPEUT 86149 KEIRA KHAN IC 4 [facility] TIC/DX HEALTH INJECTION SUBQ/IM ECG 31099 [place] MARTINEZ-ROSSY ROUTINE 4 [facility] ECG MEDICAL W/LEAST G 12 LDS W/I&R ANGIOCARD [address] OF LEFT HEART STRUCTURE S PERQ [address] NAL CORONARY ANGIOPLAS TY PTCA CORONARY [address] APHY USING TWO CATHETERS INSERTION [address] DRUG-ELUT ING CORONARY ARTERY STENT LEFT [address] CARDIAC CATHETERI ZATION VENOUS [address] ZATION NOT ELSEWHERE CLASSIFIE D OPEN HRT [address] [facility] TY MITRAL VALV WITHOUT REPLCMT PARTIAL [address] ECTOMY DIAGNOSTI [address] ULTRASOUN D OF HEART LEFT [address] CARDIAC CATHETERI ZATION INSERTION [address] DRUG-ELUT ING CORONARY ARTERY STENT LEFT [address] CARDIAC CATHETERI ZATION CORONARY [address] APHY USING TWO CATHETERS PERQ [address] NAL CORONARY ANGIOPLAS TY PTCA ANGIOCARD [address] OF LEFT HEART STRUCTURE S Encounters Encounter Start End Date Code Location Performer Type Date OFFICE 93393 [place] [facility] [facility]PATI[facility] T VISIT MEDICAL 15 G MINUTES OFFICE 07226 [facility] OUTPATI[facility] 4 4 PHYSICIAN ANKITA T VISIT S GROUP 25 MINUTES EMERGENCY 48112 IBLL KHAN DEPT 4 4 [place] VISIT HIGH SEVERITY& THREAT FUNCJ OFFICE 44662 [facility] ION MEDICAL NEW/ESTAB G PATIENT 60 MIN EMERGENCY 52705 STU FRAGA DEPT 4 4 VISIT HIGH SEVERITY& THREAT [facility] [place] - 4 4 MEM HOSP OUTPATIEN INC T OFFICE 91442 [facility] OUTPATIEN 4 4 PHYSICIAN ANKITA T NEW 20 S GROUP MINUTES EMERGENCY 28329 ANGELO STEPHENS DEPT 4 4 GIN GIN VISIT HIGH SEVERITY& THREAT FUNJ OFFICE 47520 [facility] ION MEDICAL NEW/ESTAB G PATIENT 60 MIN OFFICE 79556 [facility] ANJUR-ROSSY OUTPATIEN 4 4 [facility] T VISIT MEDICAL 15 G MINUTES EMERGENCY 85493 MARCEL LINK SOKAN BAB DEPT 4 4 VISIT HIGH SEVERITY& THREAT [facility] - 4 4 [facility] INPATIENT EMERGENCY 00209 AGUSTO GARZA 4 4 DEPARTMEN T VISIT MODERATE SEVERITY OFFICE 83234 [facility]IN [facility] NATHALIE NATHALIE T VISIT 15 MINUTES HOSPITAL UNIVERSIT - 4 4 Y [facility] T OFFICE 63065 [place] RUI OUTPATIEN 4 4 MEDICAL RYA T NEW 30 SERV MINUTES FOUNDATIO N OFFICE 02387 [place] [facility] OUTPATIEN 4 4 [facility] T VISIT MEDICAL 15 G MINUTES EMERGENCY 94975 AGUSTO GARZA 4 4 DEPARTMEN T VISIT HIGH/URGE NT SEVERITY EMERGENCY 28761 MARCEL ROD BAB DEPT 4 4 VISIT HIGH SEVERITY& THREAT [facility] [place] - 4 4 [facility] 08677 SACHIN SACHIN OUTPATIEN 4 4 NATHALIE NATHALIE T VISIT 15 MINUTES OFFICE 33141 SACHIN SACHIN OUTPATIEN 4 4 NATHALIE NATHALIE T VISIT 15 MINUTES OFFICE 63112 [place] [facility] OUTPATIEN 4 4 [facility] T VISIT MEDICAL 15 G MINUTES Emergency JULIÁN JENNINGS (ER) 4 11:14 4 11:16 [facility] [place]OHAMED EMERGENCY 39511 OSIRIS JENNINGS 4 4 EMERGENCY [facility] [place] DE[facility] SERVICES T VISIT MODERATE SEVERITY OFFICE 77814 KEIRA KHAN OUTPATIEN 4 4 [facility] VIS[facility]URAL 15 HEALTH MINUTES EMERGENCY 54420 [facility] DE[facility] 4 [facility] HIGH SEVERITY& THREAT [facility] 28021 KEIRA BILL OUTPATIEN 4 4 [facility] T NEW 30 RURAL MINUTES HEALTH OFFICE [facility] ANJ[facility] OUTPATIEN 4 4 [facility] T VISIT MEDICAL 15 G MINUTES Inpatient NISSA Farnsworth MD (IN) 3 13:10 4 13:20 [facility] Emergency JULIÁN SHERMAN MD (ER) 3 14:28 3 17:33 [facility] [address] INPATIENT Emergency JULIÁN Mera MD (ER) 3 22:47 3 01:25 [facility] Emergency JULIÁN Sampson (ER) 3 10:38 3 10:54 [facility] [address] INPATIENT [facility] [address] INPATIENT
--- OUTSIDE RECORDS SUMMARY | 2017-07-20 21:54 | External Medical Summary Rpt | CCD ---
Author Author , EDMUNDO Organization EDMUNDO Address Unknown Phone [facility] Care Team Providers Care Integration Director Name Role Phone BERTIN JORGITO, BERTIN Unavailable Unavailable JORGITO ALFARIS MOH, ALFARIS Unavailable Unavailable MOH SACHIN NATHALIE, SACHIN Unavailable Unavailable NATHALIE SACHIN NATHALIE, SACHIN Unavailable Unavailable NATHALIE [facility] Unavailable Unavailable RESPONSE, [facility] Unavailable Unavailable RESPONSE, [facility] ANJUR-KAPALI DAHIANA, Unavailable Unavailable ANJUR-KAPALI DAHIANA [facility] Unavailable Unavailable HOSPITAL, [facility] [employer] Unavailable Unavailable SAHARA [...] GROUP BILL NAN, BILL Unavailable Unavailable NAN [facility] Un[facility] Un[facility], [facility] Unavailable Unavailable MEDICAL G, [facility] G Faby Mera MD, Unavailable Unavailable Faby Mera MD [facility] Unavailable Unavailable SERVICES, [facility] MALACHI JENNINGS MD, Unavailable Unavailable MALACHI JENNINGS MD [facility] Unavailable Unavailable [facility], [facility] Unavailable Unavailable AMBULANCE SE, [facility] AMBUL[facility] SE [facility] Unavailable Unavailable EMS, [facility] EMS [facility] Unavailable Unavailable EMS, [facility] EMS BRODY NATHALIE, BRODY NATHALIE Unavailable Unavailable RADMANESH SHA, Unavailable Unavailable RADMANESH SHA GRACY ANKITA, Unavailable Unavailable GRACY ANKITA SOKAN BAB, SOKAN BAB Unavailable Unavailable [facility], Unavailable Unavailable [facility], Unavailable Unavailable [facility] CONTRERAS RAY, CONTRERAS Unavailable Unavailable RAY [facility], Unavailable Unavailable [facility] Unavailable Unavailable ALIZA GARZA, AGUSTO [...] MENTAL STATUS, UNSPECIFIED R51 HEADACHE 07-16-2017 Z79.01 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 07-16-2017 (CURRENT) USE OF ANTICOAGULA NTS Z88.8 ALLERGY 07-16-2017 STATUS TO OTHER DRUGS, MEDICAMENTS AND BIOLOGICAL SUBSTANCES STATUS Z95.1 PRESENCE OF 07-16-2017 AORTOCORONA RY BYPASS GRAFT F17.210 NICOTINE 07-03-2017 DEPENDENCE, CIGARETTES, UNCOMPLICAT ED F41.9 ANXIETY 07-03-2017 DISORDER, UNSPECIFIED I10 ESSENTIAL 07-03-2017 (PRIMARY) HYPERTENSIO N 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 I25.2 OLD [...] AND 06-05-2017 FROM LADDER, INITIAL ENCOUNTER Z79.02 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 06-05-2017 (CURRENT) USE OF ANTITHROMBO TICS/ANTIPL ATELETS [...] CHRONIC PAIN M54.9 DORSALGIA, 02-13-2017 UNSPECIFIED Z79.84 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 02-13-2017 (CURRENT) USE OF ORAL HYPOGLYCEMI C [...] AND CONSTRUCTIO N 2724 OTHER AND 07-30-2014 [facility] UNSPECIFIED HEALTH MEDICAL G HYPERLIPIDE JULIO 99789 CORONARY 07-30-2014 [facility] ATHEROSCLER HEALTH [place] MEDICAL G CORONARY ARTERY 79978 ATRIAL 07-30-2014 [facility] FIBRILLATIO HEALTH N MEDICAL G 59533 PRECORDIAL 07-30-2014 [facility] PAIN HEALTH MEDICAL G 7248 OTHER 07-27-2014 [facility] SYMPTOMS PHYSICIANS REFERABLE GROUP TO BACK 81973 INSOMNIA 07-27-2014 [facility] UNSPECIFIED PHYSICIANS GROUP 514 PULMONARY 07-19-2014 [facility] [place] CONGESTION RADIOLOGY AND HYPOSTASIS 7802 SYNCOPE AND 07-19-2014 [place] COLLAPSE 08029 ALTERED 07-19-2014 [facility] 90646 SHORTNESS 07-19-2014 [facility] OF BREATH HEALTH MEDICAL G 70924 CHEST PAIN 07-19-2014 [facility] UNSPECIFIED HEALTH MEDICAL G 97106 OTHER CHEST 07-19-2014 [place] PAIN 67742 HEAD 07-19-2014 [facility] [place] INJURY, RADIOLOGY UNSPECIFIED 45451 COR 07-17-2014 [facility] ATHEROSLERO HEALTH UNSPEC MEDICAL G TYPE VESSEL [place]/CLAUDIA T 11811 FIRST 07-17-2014 [facility] [facility] P[facility] CULAR BLOCK 4263 OTHER LEFT 07-17-2014 [facility] [facility] PSC BLOCK 55027 OTHER 07-17-2014 NEW SPECIFIED [facility] PSC DYSRHYTHMIA S 7905 OTHER 07-17-2014 [facility] NONSPECIFIC HEALTH ABNORMAL MEDICAL G SERUM ENZYME LEVELS 70547 NONSPECIFIC 07-17-2014 NEW ABNORMAL [place] ELECTROCARD [facility]INIC PSC IOGRAM 74823 OSTEOARTHRO 07-06-2014 [place] [facility] UNSPEC MEDICAL WHETHER IMAGING ASS GEN/LOC LOWER LEG 26017 PAIN IN 07-06-2014 [place] [facility], MEDICAL LOWER LEG IMAGING ASS 7242 LUMBAGO 07-06-2014 [facility] 4293 CARDIOMEGAL 06-30-2014 [facility] PSC 5180 PULMONARY 06-30-2014 [facility] [place] COLLAPSE RADIOLOGY 4280 CONGESTIVE 06-16-2014 [facility] HEART HEALTH FAILURE MEDICAL G UNSPECIFIED V5861 LONG-TERM 06-16-2014 [facility] (CURRENT) HEALTH USE OF MEDICAL G ANTICOAGULA NTS 20901 MORBID 06-08-2014 [facility] OBESITY EAST 44467 HYPERTROPHI 06-08-2014 [facility] C EAST OBSTRUCTIVE CARDIOMYOPA THY 4279 UNSPECIFIED 06-08-2014 [place] [facility]ARDIAC [place] DYSRHYTHMIA [facility] EMS 30902 CHRONIC 06-08-2014 [facility] DIASTOLIC EAST HEART FAILURE 496 CHRONIC 06-08-2014 [facility] AIRWAY EAST OBSTRUCTION NEC 40598 PAIN IN 04-16-2014 [place] [facility], MEDICAL FOREARM IMAGING ASS 68920 SPRAIN AND 04-16-2014 AGUSTO GARZA STRAIN OF UNSPECIFIED SITE OF WRIST E9270 OVEREXERTIO 04-16-2014 AGUSTO GARZA N FROM SUDDEN STRENUOUS MOVEMENT V719 OBSERVATION 04-16-2014 [place] FOR MEDICAL UNSPECIFIED IMAGING ASS SUSPECTED CONDITION 4011 ESSENTIAL 04-15-2014 SACHIN NATHALIE HYPERTENSIO N, BENIGN 4660 ACUTE 04-15-2014 SACHIN NATHALIE BRONCHITIS 7213 LUMBOSACRAL 04-12-2014 [facility] SP[facility] WITHOUT MYELOPATHY 4659 ACUTE URIS 02-14-2014 AGUSTO GARZA OF UNSPECIFIED SITE 7862 COUGH 02-14-2014 AGUSTO GARZA 37787 PAINFUL 02-14-2014 AGUSTO GARZA RESPIRATION 4111 INTERMEDIAT 02-03-2014 [facility]Leah E CORONARY HEALTH SYNDROME MEDICAL G 2720 PURE 02-02-2014 [place] [facility] TERO[facility] 4019 UNSPECIFIED 02-02-2014 [facility] N 412 OLD 02-02-2014 [place] MYOCARDIAL [facility] 7245 UNSPECIFIED 01-22-2014 SACHIN NATHALIE BACKACHE 60277 SPASM OF 01-22-2014 SACHIN NATHALIE MUSCLE 4292 UNSPECIFIED 12-17-2013 SACHIN NATHALIE CARDIOVASCU LAR DISEASE 305.1 305.1 11-26-2013 [place] TOBACCO USE [place] 401.9 401.9 11-26-2013 [place] HYPERTENSIO [facility] 413.9 413.9 11-26-2013 [place] ANGINA [facility] PECTORIS [facility] NEC/NOS 845.00 845.00 11-26-2013 [place] SPRAIN OF [facility] ANKLE [facility] 54567 UNSPECIFIED 11-26-2013 [facility] SITE OF EMERGENCY ANKLE SERVICES SPRAIN AND STRAIN E849.8 E849.8 11-26-2013 [place] ACCIDENT IN [facility] Hospital E885.9 E885.9 FALL 11-26-2013 [place] FROM [facility] SLIPPING, Hospital TRIPPING, OR STUMBLING [facility] V14.8 V14.8 11-26-2013 [place] HX-DRUG [facility] ALLERGY [facility] 4139 OTHER AND 11-12-2013 [facility] UNSPECIFIED HEALTH ANGINA MEDICAL G PECTORIS 4289 UNSPECIFIED 11-10-2013 [facility] FAILURE RESPONSE 7808 GENERALIZED 11-10-2013 [facility] [place] [address] NAUSEA WITH 11-10-2013 [facility] 4254 OTHER 10-08-2013 [facility] PRIMARY HEALTH CARDIOMYOPA [place]ICAL [place] 25695 ACUT MA 09-08-2013 [facility] IAL INFARCT INIT EPIS CARE 411.1 411.1 09-08-2013 [facility] SYND 414.01 414.01 09-08-2013 [place] CORONARY [facility] OSIS OF [place] CORONARY VESSEL 426.3 426.3 LEFT 09-08-2013 [place] BB BLOCK [facility] 427.31 427.31 09-08-2013 [place] ATRIAL [facility] FIBRILLATIO [facility] N V4582 POSTSURG 09-08-2013 [facility] PERCTONSIL HOSPITAL TRANSLUMINA L COR ANGPLSTY STS 410.71 410.71 AC 09-04-2013 [place] MYOCARDIAL [facility] INFARCT,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[facility] VALVE [facility] DISORDERS 486 PNEUMONIA, 05-01-2012 [facility] ORGANISM HOSPITAL UNSPECIFIED 5119 UNSPECIFIED 05-01-2012 [facility] PLEURAL [facility] EFFUSION 14325 ACUTE 05-01-2012 [facility] RESPIRATORY [facility] FAILURE FLW TRAUMA & SURGERY 5849 ACUTE 05-01-2012 [facility] KIDNEY [facility] FAILURE UNSPECIFIED V148 PERSONAL 04-17-2012 [facility] HISTORY [facility] ALLERGY OTH SPEC MEDICINAL AGTS V5863 LONG-TERM 04-17-2012 [facility] USE OF HOSPITAL ANTIPLATELE T/ANTITHROM BOTIC V5866 LONG-TERM 04-17-2012 [facility] ASPIRIN Allergies, Adverse Reactions, Alerts Type [...] 00 12 1 No SO 18 -3 NM 50 1- Lo OL 77 20 ng [...] 50 ti ve MG TA BL ET NM 51 12 2 No OM 07 -3 [...] er -A 2 CE Ac TA ti MA ve NO PH EN 5- 32 5 [...] Cnc Bacteria Ur Cult (03-09-2017 12:19) Bacteri [id number] complet a XXX 017 06 No ed [...] Tests consoli dated. 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 STATUTE EMS EMS MILE ECG 89781 [place] HEAVEN THO ROUTINE 4 [facility] ECG MEDICAL W/LEAST G 12 LDS I&R ONLY AMB A0427 [facility] SERVICE 4 [facility] EMERGENCY EMS [place] [address] [facility] [place] WESTERFIE HEAD/BRAI 4 RADIOLOGY LD IV ALL N W/O CONTRAST MATERIAL RADIOLOGI 29635 [facility] [place] BERTIN C 4 RADIOLOGY JORGITO EXAMINATI ON CHEST SINGLE VIEW FRONTAL ECG 30063 STU PERAZA PHILLY ROUTINE 4 ECG W/LEAST 12 LDS I&R ONLY RADIOLOGI 93665 [facility] [place] CONTRERAS C 4 RADIOLOGY RAY EXAMINATI ON CHEST SINGLE VIEW FRONTAL RADEX 50067 [place] SPINE 4 MEM HOSP MEM HOSP LUMBOSACR INC INC AL MINIMUM 4 VIEWS RADIOLOGI 48672 [place] C 4 MEM HOSP MEM HOSP EXAMINATI INC INC ON KNEE 3 VIEWS RADIOLOGI 52233 [facility] [place] MELGAR C 4 RADIOLOGY CAR EXAMINATI ON CHEST SINGLE VIEW FRONTAL GROUND A0425 P & S SURGERY [facility] STAT[facility] EMS EMS MILE ECG 00603 BELLA ESCALANTE ROUTINE 4 [facility] MAT ECG CLINIC W/LEAST PSC 12 LDS I&R ONLY AMB A[address] EMERGENCY EMS EMS TRANSPORT LEVEL 1 ECG 52355 ROSHNIY[place] ANJUR-ROSSY ROUTINE 4 [facility] ALI DAHIANA ECG MEDICAL W/LEAST G 12 LDS W/I&R AMB A[address] EMERGENCY EMS EMS TRANSPORT LEVEL 1 GROUND A0425 P & S SURGERY [facility] 4 [facility] PER [facility] STATUTE EMS EMS MILE ECG 35454 MARCEL LINK SOKAN BAB ROUTINE 4 ECG W/LEAST 12 LDS I&R ONLY RADIOLOGI 87508 [facility] [place] [facility] EXAM 4 RADIOLOGY SHA CHEST 2 VIEWS FRONTAL&L ATERAL MRI 75495 NEURODIAG BRODY NATHALIE SPINAL 4 NOSTICS CANAL INC LUMBAR W/O CONTRAST MATERIAL RADEX 02027 [place] [facility] FOREARM 2 4 MEDICAL YADI VIEWS IMAGING ASS RADEX 11940 [place] [facility] WRIST 4 MEDICAL YADI COMPLETE IMAGING MINIMUM 3 ASS VIEWS WRIST L3908 [facility] HAND 4 ORTHOSIS EXT CONTROL COCK-UP PREFAB INJECTION J1100 SACHIN STEPHENSON 4 NATHALIE NATHALIE DEXAMETHO SONE SODIUM PHOSPHATE 1 MG INJECTION J0696 SACHIN STEPHENSON 4 NATHALIE NATHALIE CEFTRIAXO NE SODIUM PER 250 MG RADEX 22512 [facility] SPINE 4 Y Y [facility] AL 2/3 VIEWS ECG 22047 [facility] ANJUR-ROSSY ROUTINE 4 [facility] ALI DAHIANA ECG MEDICAL W/LEAST G 12 LDS W/I&R PROTHROMB 91520 [facility] PEACE IN TIME 4 [facility]ALTH ALIZA MEDICAL G RADIOLOGI 18035 [place] [facility] C EXAM 4 MEDICAL YADI CHEST 2 IMAGING VIEWS ASS FRONTAL&L ATERAL SBSQ 86749 [facility] PEACE OBSERVATI 4 [facility] ALIZA ON MEDICAL CARE/DAY G 35 MINUTES CATH PLMT 24524 [facility] GRACY L HRT & 4 [facility] ANKITA ARTS MEDICAL W/NJX & G ANGIO IMG S&I THER 05890 BI PAT PROPH/DX 4 [facility] SEQL IV PUSH SBST/DRUG FAC ECG 34568 MARCEL LINK SOKAN BAB ROUTINE 4 ECG W/LEAST 12 LDS I&R ONLY COMPREHEN 78851 BI PAT SIVE 4 [facility] PANEL INITIAL 33776 [place] WESLEYUAMAIRANI OBSERVATI 4 [facility] ARIANA ON MEDICAL CARE/DAY G 70 MINUTES GROUND A0425 [facility] MILEAGE 4 [facility] PER [facility] STATUTE EMS EMS MILE AMB A0422 KEIRA CROCKETT OXYGEN&O[address] [place] [address] SUPPLIES AMBULANCE AMBULANCE LIFE SE SE SUSTAININ G SITUATION AMB A0427 [facility] SERVICE 4 [facility] EMERGENCY EMS EMS TRANSPORT LEVEL 1 THERAPEUT 51357 [facility] IC 4 [facility] [place] [address] [facility] TROPONIN 4 [facility] KWADWO INJECTION J2270 [facility] MORPHINE 4 [facility] UP TO 10 MG PROTHROMB 38018 [facility] IN TIME 4 [facility] CREATINE 83066 [facility] KINASE 4 [facility] CREATINE 35496 [facility] KINASE MB 4 [facility] ONLY COLLECTIO 05450 [facility] N VENOUS 4 [facility] VENIPUNCT URE THER 57517 [facility] PROPH/DX 4 [facility] PUSH SINGLE/1S T SBST/DRUG ECG 59244 [facility] ROUTINE 4 [facility]OSP[facility] W/LEAST 12 LDS TRCG ONLY W/O I&R BLOOD 71520 [facility] COUNT 4 [facility] AUTO&AUTO DIFRNTL WBC INJECTION J1100 SACHIN SACHIN 4 NATHALIE NATHALIE DEXAMETHO SONE SODIUM PHOSPHATE 1 MG PROTHROMB 94215 [place] ANJUR-ROSSY IN TIME 4 [facility] AL[facility] DAHIANA MEDICAL G ECG 65564 [place] ANJUR-ROSSY ROUTINE 4 [facility] ECG MEDICAL W/LEAST G 12 LDS W/I&R OBSERVATI 79853 [place] DUBOSE ON CARE 4 [facility] ANKITA DISCHARGE MEDICAL G MANAGEMEN T ECG 95267 [place] COLLADO THO ROUTINE 4 [facility] ECG MEDICAL W/LEAST G 12 LDS I&R ONLY INITIAL 21187 [place] DUBOSE OBSERVATI 4 [facility] ANKITA ON MEDICAL CARE/DAY G 70 MINUTES ECHO 16892 [place] ANJUR-ROSSY TTHRC R-T 4 [facility] 2D MEDICAL W/WOM-MOD G E COMPL SPEC&[place] [address] [facility]OR[facility] TROPONIN 4 [facility] KWADWO PROTHROMB 34705 [facility] IN TIME 4 [facility] CREATINE 60399 [facility]OR[facility] KINASE 4 [facility] ECG 08878 [facility] ROUTINE 4 AYANNA DARRIN ECG EMERGENCY W/LEAST PHYSI 12 LDS I&R ONLY ECG 70008 [facility] ROUTINE 4 [facility] W/LEAST 12 LDS TRCG ONLY W/O I&R THER 39116 [facility] PROPH/DX 4 [facility]OSPITAL PUSH SINGLE/1S T SBST/DRUG COLLECTIO 21546 [facility]OR[facility] N VENOUS 4 [facility] VENIPUNCT URE CREATINE 16692 [facility]OR[facility] KINASE MB 4 [facility] ONLY RADIOLOGI 40119 [facility] [place] JENN MAT C 4 RADIOLOGY EXAMINATI ON CHEST SINGLE VIEW FRONTAL AMB A0422 [facility] OXYGEN&O2 4 MEDICAL MEDICAL SUPPLIES RESPONSE RESPONSE LIFE SUSTAININ G SITUATION COMPREHEN 61188 BI COCHRANYUNIEREVAN SIVE 4 [facility] HOSPITAL PANEL GROUND A0425 [facility] MILEAGE 4 MEDICAL MEDICAL PER RESPONSE RESPONSE STATUTE MILE CRITICAL 92528 [facility] 4 AYANNA DARRIN ILL/INJUR EMERGENCY ED PHYSI PATIENT INIT 30-74 MIN THER 76641 [facility] PROPH/DX 4 [facility] HOSPITAL SEQL IV PUSH SBST/DRUG FAC BLOOD 20835 BI [facility] COUNT 4 [facility] AUTO&AUTO DIFRNTL WBC INJECTION J3301 KEIRA KHAN 4 [facility] NOS 10 MG THERAPEUT 39446 KEIRA KHAN IC 4 [facility] PROPHYLAC [facility] TIC/DX HEALTH INJECTION SUBQ/IM ECG 90129 [place] MARTINEZ-ROSSY ROUTINE 4 [facility] AL[facility] DAHIANA ECG MEDICAL W/LEAST G 12 LDS W/I&R ANGIOCARD [address] OF LEFT HEART STRUCTURE S PERQ [address] NAL CORONARY ANGIOPLAS TY PTCA CORONARY [address] APHY USING TWO CATHETERS INSERTION [address] DRUG-ELUT ING CORONARY ARTERY STENT LEFT [address] CARDIAC CATHETERI ZATION VENOUS [address] ZATION NOT ELSEWHERE CLASSIFIE D OPEN HRT 3512 MARY BABB RANDOLPH CANCER CENTERVUL[address] TY MITRAL VALV WITHOUT REPLCMT PARTIAL [address] ECTOMY DIAGNOSTI [address] ULTRASOUN D OF HEART LEFT [address] CARDIAC CATHETERI ZATION INSERTION [address] DRUG-ELUT ING CORONARY ARTERY STENT LEFT [address] CARDIAC CATHETERI ZATION CORONARY [address] APHY USING TWO CATHETERS PERQ [address] NAL CORONARY ANGIOPLAS TY PTCA ANGIOCARD [address] OF LEFT HEART STRUCTURE S Encounters Encounter Start End Date Code Location Performer Type Date OFFICE 26732 [place] AN[place] OUTPATIEN 4 4 [facility] T VISIT MEDICAL 15 G MINUTES OFFICE 37642 [facility] ALONZO OUTPATIEN 4 4 PHYSICIAN ANKITA T VISIT S GROUP 25 MINUTES EMERGENCY 22742 BILL KHAN DEPT 4 4 [facility] VISIT HIGH SEVERITY& THREAT FUNCJ OFFICE 42391 [facility] CONSULTAT 4 4 [facility] ANKITA ION MEDICAL NEW/ESTAB G PATIENT 60 MIN EMERGENCY 56149 STU FRAGA DEPT 4 4 VISIT HIGH SEVERITY& THREAT [facility] [place] - 4 4 MEM HOSP OUTPATIEN INC T OFFICE 53415 [facility] ALONZO OUTPATIEN 4 4 PHYSICIAN ANKITA T NEW 20 S GROUP MINUTES EMERGENCY 08277 ANGELO STEPHENS DEPT 4 4 GIN GIN VISIT HIGH SEVERITY& THREAT FUNJ OFFICE 85031 [facility] 4 4 [facility] ARIANA ION MEDICAL NEW/ESTAB G PATIENT 60 MIN OFFICE 92137 [facility] ANJUR-ROSSY OUTPATIEN 4 4 [facility] T VISIT MEDICAL 15 G MINUTES EMERGENCY 69791 MARCEL LINK SOKAN BAB DEPT 4 4 VISIT HIGH SEVERITY& THREAT [facility] - 4 4 [facility] IN[facility] EMERGENC[facility] 85030 AGUSTO GARZA 4 4 DEPARTMEN T VISIT MODERATE SEVERITY OFFICE 73513 [facility] 4 4 NATHALIE NATHALIE T VISIT 15 MINUTES HOSPITAL UNIVERSIT - 4 4 Y [facility] T OFFICE 15890 [place] RUI OUTPATIEN 4 4 MEDICAL RYA T NEW 30 SERV MINUTES FOUNDATIO N OFFICE 72309 [place] ANJUR-ROSSY OUTPATIEN 4 4 [facility] T VISIT MEDICAL 15 G MINUTES EMERGENCY 86074 AGUSTO GARZA 4 4 DEPARTMEN T VISIT HIGH/URGE NT SEVERITY EMERGENCY 64798 MARCEL ROD BAB DEPT 4 4 VISIT HIGH SEVERITY& THREAT [facility] [place] - 4 4 [facility] T OFFICE 85939 SACHIN SACHIN OUTPATIEN 4 4 NATHALIE NATHALIE T VISIT 15 MINUTES OFFICE 61110 SACHIN SACHIN OUTPATIEN 4 4 NATHALIE NATHALIE T VISIT 15 MINUTES OFFICE 38937 [place] ANJUR-ROS[place] OUTPATIEN 4 4 [facility] T VISIT MEDICAL 15 G MINUTES Emergency JULIÁN JENNINGS (ER) 4 11:14 4 11:16 [facility] MOHAMED EMERGENCY 92864 OSIRIS JENNINGS 4 4 [facility] T VISIT MODERATE SEVERITY OFFICE 91625 KEIRA KHAN OUTPATIEN 4 4 [facility] VISIT RURAL 15 HEALTH MINUTES EMERGENCY 36194 [facility] [address] [facility] HIGH SEVERITY& THREAT [facility] 4 [facility] T OFF[facility] 46492 KEIRA BILL OUTPATIEN 4 4 [facility] T NEW 30 RURAL MINUTES HEALTH OFFICE 76955 [facility] 4 4 [facility] VISIT MEDICAL 15 G MINUTES Inpatient NISSA Farnsworth MD (IN) 3 13:10 4 13:20 [facility] Emergency JULIÁN SHERMAN MD (ER) 3 14:28 3 17:33 [facility] [address] INPATIENT Emergency JULIÁN Mera MD (ER) 3 22:47 3 01:[address] [facility] Emergency JULIÁN Sampson (ER) 3 10:38 3 10:54 [facility] [address] INPATIENT [facility] [address] INPATIENT
--- OUTSIDE RECORDS SUMMARY | 2017-07-20 21:56 | External Medical Summary Rpt | CCD ---
Author Author , EDMUNDO Organization EDMUNDO Address Unknown Phone [email or web address] Care Team Providers Care Multi Punch Operator Name Role Phone BERTIN JORGITO, BERTIN Unavailable Unavailable JORGITO ALFARIS MOH, ALFARIS Unavailable Unavailable MOH SACHIN NATHALIE, SACHIN Unavailable Unavailable NATHALIE SACHIN NATHALIE, SACHIN Unavailable Unavailable NATHALIE [facility] Unavailable Unavailable RESPONSE, [facility] Unavailable Unavailable RESPONSE, [facility] ANJUR-KAPALI DAHIANA, Unavailable Unavailable ANJUR-KAPALI DAHIANA BEINEKE VINCE, BEINEKE Unavailable Unavailable VINCE [facility] Unavailable Unavailable HOSPITAL, [facility] [employer] [employer] Unavailable Unavailable STU PHILLY, STU PHILLY Unavailable Unavailable MELGAR [...] Unavailable GREISER DARRIN, GREISER Unavailable Unavailable DARRIN [facility], Unavailable Unavailable [facility] BILL NAN, BILL Unavailable Unavailable NAN [facility], [facility] Unavailable Unavailable MEDICAL G, [facility], [facility] Unavailable Unavailable SERVICES, [facility] DAY RODOLFO, DAY Unavailable Unavailable RODOLFO [facility] Unavailable Unavailable [facility], [facility] Unavailable Unavailable AMBULANCE SE, [facility] AM[facility] SE [facility] Unavailable Unavailable EMS, [facility] Unavailable Unavailable EMS, [facility] BRODY NATHALIE, BRODY NATHALIE Unavailable Unavailable RADMANESH SHA, Unavailable Unavailable RADMANESH SHA GRACY ANKITA, Unavailable Unavailable GRACY ANKITA SOKAN BAB, SOKAN BAB Unavailable Unavailable [facility], Unavailable Unavailable [facility] Unavailable Unavailable [facility]ER[facility] ROSITA BUCHANANENS Unavailable Unavailable [facility], Unavailable Unavailable [facility] Unavailable Unavailable ALIZA GARZA, AGUSTO GARZA Unavailable Unavailable AGUSTO ONEAL Unavailable Unavailable KOURTNEY IV ALL, Unavailable Unavailable KOURTNEY IV ALL STEPHENS GIN, STEPHENS Unavailable Unavailable GIN Purpose Continuity of Care Document - 04-17-2012 through 2016 Problems Code Diagnosis DOS Provider Status 2724 OTHER AND 07-30-2014 [facility] UNSPECIFIED HEALTH MEDICAL G HYPERLIPIDE JULIO 44497 CORONARY 07-30-2014 [facility] A[facility]CL[facility] [place] [facility] G CORONARY ARTERY 19101 ATRIAL 07-30-2014 [facility] FIBRILLATIO HEALTH N MEDICAL G 97488 PRECORDIAL 07-30-2014 [facility] PAIN HEALTH MEDICAL G 7248 OTHER 07-27-2014 [facility] SYMPTOMS PHYSICIANS REFERABLE GROUP TO BACK 38843 INSOMNIA 07-27-2014 [facility] UNSPECIFIED PHYSICIANS GROUP 514 PULMONARY 07-19-2014 [facility] [place] CONGESTION RADIOLOGY AND HYPOSTASIS 7802 SYNCOPE AND 07-19-2014 [facility] [place] COLLAPSE 33119 ALTERED 07-19-2014 [facility] EMS 30063 SHORTNESS 07-19-2014 [facility] OF BREATH HEALTH MEDICAL G 67362 CHEST PAIN 07-19-2014 [facility] UNSPECIFIED HEALTH MEDICAL G 26024 OTHER CHEST 07-19-2014 [facility]ILL [place] PAIN 51156 HEAD 07-19-2014 [facility] [place] INJURY, RADIOLOGY UNSPECIFIED 17974 COR 07-17-2014 [facility] ATHEROSLERO HEALTH UNSPEC MEDICAL G TYPE VESSEL [place]/CLAUDIA T 32932 FIRST 07-17-2014 [facility] P[facility] CULAR BLOCK 4263 OTHER LEFT 07-17-2014 NEW BUNDLE [facility] PSC BLOCK 34286 OTHER 07-17-2014 NEW SPECIFIED [facility] PSC DYSRHYTHMIA S 7905 OTHER 07-17-2014 [facility] NONSPECIFIC HEALTH ABNORMAL MEDICAL G SERUM ENZYME LEVELS 13651 NONSPECIFIC 07-17-2014 NEW ABNORMAL [facility] PSC IOGRAM 23553 OSTEOARTHRO 07-06-2014 [facility] UNSPEC MEDICAL WHETHER IMAGING ASS GEN/LOC LOWER LEG 68154 PAIN IN 07-06-2014 [facility], MEDICAL LOWER LEG [facility] 7242 LUMBAGO 07-06-2014 [facility] 4293 CARDIOMEGAL 06-30-2014 [facility] PSC 5180 PULMONARY 06-30-2014 [facility] [place] COLLAPSE RADIOLOGY 4280 CONGESTIVE 06-16-2014 [facility] HEART HEALTH FAILURE MEDICAL G UNSPECIFIED V5861 LONG-TERM 06-16-2014 [facility] (CURRENT) HEALTH USE [place] 89622 MORBID 06-08-2014 [facility] OBESITY EAST 82474 HYPERTROPHI 06-08-2014 [facility] C EAST OBSTRUCTIVE CARDIOMYOPA THY 4279 UNSPECIFIED 06-08-2014 [place] CARDIAC AMES DYSRHYTHMIA [facility] EMS 39805 CHRONIC 06-08-2014 [facility] DIASTOLIC [facility] HEART FAILURE 496 CHRONIC 06-08-2014 [facility] AIRWAY EAST OBSTRUCTION NEC 84202 PAIN IN 04-16-2014 [facility], MEDICAL FOREARM [facility] 42104 SPRAIN AND 04-16-2014 AGUSTO GARZA STRAIN OF UNSPECIFIED SITE OF WRIST E9270 OVEREXERTIO 04-16-2014 AGUSTO GARZA N FROM SUDDEN STRENUOUS MOVEMENT V719 OBSERVATION 04-16-2014 [place] UNSPECIFIED IMAGING ASS SUSPECTED CONDITION 4011 ESSENTIAL 04-15-2014 SACHIN NATHALIE HYPERTENSIO N, BENIGN 4660 ACUTE 04-15-2014 SACHIN NATHALIE BRONCHITIS 7213 LUMBOSACRAL 04-12-2014 [facility] WITHOUT MYELOPATHY 4659 ACUTE URIS 02-14-2014 AGUSTO GARZA OF UNSPECIFIED SITE 7862 COUGH 02-14-2014 AGUSTO GARZA 64381 PAINFUL 02-14-2014 AGUSTO GARZA RESPIRATION 4111 INTERMEDIAT 02-03-2014 [facility] E CORONARY HEALTH SYNDROME MEDICAL G 2720 PURE 02-02-2014 [facility] HYPERCHOLES [facility] 4019 UNSPECIFIED 02-02-2014 [facility] ESSENTIAL [facility] HYPERTENSIO [facility]OSPITAL N 412 OLD 02-02-2014 [facility] MYOCARDIAL [facility] INF[facility]CTION [facility] 7245 UNSPECIFIED 01-22-2014 SACHIN NATHALIE BACKACHE 43034 SPASM OF 01-22-2014 SACHIN NATHALIE MUSCLE 4292 UNSPECIFIED 12-17-2013 SACHIN NATHALIE CARDIOVASCU LAR DISEASE 54473 UNSPECIFIED 11-26-2013 [facility] SPRAIN AND STRAIN 4139 OTHER AND 11-12-2013 [facility] UNSPECIFIED HEALTH ANGINA MEDICAL G PECTORIS 4289 UNSPECIFIED 11-10-2013 [facility] FAILURE RESPONSE 7808 GENERALIZED 11-10-2013 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 [facility] DISORDERS 486 PNEUMONIA, 05-01-2012 [facility] ORGANISM HOSPITAL UNSPECIFIED 5119 UNSPECIFIED 05-01-2012 [facility] PLEURAL [facility] EFFUSION 13216 ACUTE 05-01-2012 [facility] RESPIRATORY [facility] FAILURE FLW TRAUMA & SURGERY 5849 ACUTE 05-01-2012 [facility] KIDNEY [facility] FAILURE UNSPECIFIED V148 PERSONAL 04-17-2012 [facility] HISTORY [facility] ALLERGY OTH SPEC MEDICINAL AGTS V5863 LONG-TERM 04-17-2012 [facility] USE OF HOSPITAL ANTIPLATELE T/ANTITHROM BOTIC V5866 LONG-TERM 04-17-2012 [facility] USE OF HOSPITAL ASPIRIN Procedures Procedure DOS Code Location Performer Comment ECG 66454 [facility] ANJUR-ROSSY ROUTINE 4 [facility] ALI DAHIANA ECG MEDICAL W/LEAST G 12 LDS W/I&R GROUND A0425 [facility] [facility] EMS EMS MILE RADIOLOGI 78681 [facility] [place] BERTIN C 4 RADIOLOGY JORGITO EXAMINATI ON CHEST SINGLE VIEW FRONTAL ECG 14727 [facility] HEAVEN THO ROUTINE 4 NE HEALTH ECG MEDICAL W/LEAST G 12 LDS I&R ONLY AMB A0427 [facility] SERVICE [address] [place] [address] EMERGENCY EMS [place] [address] [facility] [place] JAMESERALYSHA HEAD/BRAI 4 RADIOLOGY LD IV ALL N W/O CONTRAST MATERIAL RADIOLOGI 50386 [facility] [place] CONTRERAS C 4 RADIOLOGY RAY EXAMINATI ON CHEST SINGLE VIEW FRONTAL ECG 70674 STU PERAZA PHILLY ROUTINE 4 ECG W/LEAST 12 LDS I&R ONLY RADIOLOGI 29883 IBAN BEINEKE C 4 MEDICAL VINCE EXAMINATI IMAGING ON KNEE 3 ASS VIEWS RADEX 40963 [facility] BE[facility] SPINE 4 MEDICAL VINCE LUMBOSACR IMAGING AL ASS MINIMUM 4 VIEWS RADIOLOGI 39226 [facility] [place] MELGAR C 4 RADIOLOGY CAR EXAMINATI ON CHEST SINGLE VIEW FRONTAL AMB A[address] EMERGENCY EMS EMS TRANSPORT LEVEL [address] [facility] STATUTE EMS EMS MILE ECG 85445 STEPHENS STEPHENS ROUTINE 4 GIN GIN ECG W/LEAST 12 LDS I&R ONLY ECG 08914 [facility] ANJUR-ROSSY ROUTINE 4 [facility] ALI DAHIANA ECG MEDICAL W/LEAST G 12 LDS W/I&R ECG 02588 [facility] DAY ROUTINE 4 NE [facility]ALTH RODOLFO ECG MEDICAL W/LEAST G 12 LDS I&R ONLY RADIOLOGI 91449 [facility] [place] RADMANESH C EXAM 4 RADIOLOGY SHA CHEST 2 VIEWS FRONTAL&L ATERAL AMB A[address] EMERGENCY EMS EMS TRANSPORT LEVEL [address] STATUTE EMS EMS MILE MRI 65971 NEURODIAG BRODY NATHALIE SPINAL 4 NOSTICS CANAL INC LUMBAR W/O CONTRAST MATERIAL WRIST L3908 [facility] HAND 4 ORTHOSIS EXT CONTROL COCK-UP PREFAB RADEX 75148 IBAN DAYO FOREARM 2 4 MEDICAL YADI VIEWS IMAGING ASS RADEX 07976 [facility] DAYO WRIST 4 MEDICAL YADI COMPLETE IMAGING MINIMUM 3 ASS VIEWS INJECTION J0696 SACHIN STEPHENSON 4 NATHALIE NATHALIE CEFTRIAXO NE SODIUM PER 250 MG INJECTION J1100 SACHIN STEPHENSON 4 NATHALIE NATHALIE DEXAMETHO SONE SODIUM PHOSPHATE 1 MG RADEX 90245 [facility] SPINE 4 Y Y LUMBOSACR HOSPITAL HOSPITAL AL 2/3 VIEWS ECG 39816 [facility] ANJUR-ROSSY ROUTINE 4 [facility] ALI DAHIANA ECG MEDICAL W/LEAST G 12 LDS W/I&R PROTHROMB 86110 [facility] HAND IN TIME 4 [facility] ALIZA MEDICAL G RADIOLOGI 33727 [facility] DAYO C EXAM 4 MEDICAL YADI CHEST 2 IMAGING VIEWS ASS FRONTAL&L ATERAL CATH PLMT 05320 [facility] GRACY L HRT & 4 NE [facility]ALTH ANKITA ARTS MEDICAL W/NJX & G ANGIO IMG S&I SBSQ 33590 [facility] HAND OBSERVATI 4 [facility] ALIZA ON MEDICAL CARE/DAY G 35 MINUTES CREATINE 20917 BI PAIZON KINASE MB 4 [facility]OSP[facility] ONLY COMPREHEN 97476 BI PAIZON SIVE 4 [facility] PANEL INITIAL 58508 [facility] FALLUJI OBSERVATI 4 [facility] ARIANA ON MEDICAL CARE/DAY G 70 MINUTES PROTHROMB 12444 BI PAIZON IN TIME 4 [facility] CREATINE 61850 BI PAIZON KINASE 4 [facility] COLLECTIO 72405 BI PAIZON N VENOUS 4 [facility] VENIPUNCT URE BLOOD 38725 BI PAIZON COUNT 4 [facility] AUTO&[place] [address] BI PAIZON TROPONIN 4 [facility] HOSPITAL KWADWO AMB A0427 KEIRA CROCKETT SERVICE [address] [place] [address] ALS AMBULANCE AMBULANCE EMERGENCY SE SE TRANSPORT LEVEL 1 THER 27571 BI PAT PROPH/DX 4 [facility] SEQL IV PUSH SBST/DRUG FAC ECG 09373 [facility] HAND ROUTINE 4 [facility] ALIZA ECG MEDICAL W/LEAST G 12 LDS I&R ONLY GROUND A0425 KEIRA CROCKETT MILEAGE [address] [place] [address] PER AMBULANCE AMBULANCE STATUTE SE SE MILE AMB A0422 KEIRA CROCKETT OXYGEN&O2 4 [facility] SUPPLIES AMBULANCE AMBULANCE LIFE SE SE SUSTAININ G SITUATION ECG 11747 BI PAIZON ROUTINE 4 [facility] W/LEAST 12 LDS TRCG ONLY W/O I&R INJECTION J2270 [facility] MORPHINE 4 [facility] UP TO 10 MG THERAPEUT 60060 [facility] CHENCHOON IC 4 [facility] IV PUSH EACH NEW DRUG THER 92643 [facility] PROPH/DX 4 [facility]OSPITAL PUSH SINGLE/1S T SBST/DRUG INJECTION J1100 SACHIN STEPHENSON 4 NATHALIE NATHALIE DEXAMETHO SONE SODIUM PHOSPHATE 1 MG ECG 42661 [facility] ANJUR-ROSSY ROUTINE 4 [facility] ALI DAHIANA ECG MEDICAL W/LEAST G 12 LDS W/I&R PROTHROMB 61342 [facility] ANJUR-ROSSY IN TIME 4 [facility] ALI DAHIANA MEDICAL G OBSERVATI 75216 [facility] ON CARE 4 NE [facility] ANKITA DISCHARGE MEDICAL G MANAGEMEN T INITIAL 29804 [facility] OBSERVATI 4 NE [facility] ANKITA ON MEDICAL CARE/DAY G 70 MINUTES ECG 39463 [facility] HEAVEN THO ROUTINE 4 NE [facility]ALTH ECG MEDICAL W/LEAST G 12 LDS I&R ONLY ECHO 04022 [facility] ANJUR-ROSSY TTHRC R-T 4 [facility] ALI DAHIANA 2D MEDICAL W/WOM-MOD G E COMPL SPEC&COLR D THER 24805 [facility] PAT PROPH/DX 4 [facility] HOSPITAL SEQL IV PUSH SBST/DRUG FAC ECG 60760 [facility] ROUTINE 4 AYANNA DARRIN ECG EMERGENCY W/LEAST PHYSI 12 LDS I&R ONLY AMB A0422 [facility] OXYGEN&O2 4 MEDICAL MEDICAL SUPPLIES RESPONSE RESPONSE LIFE SUSTAININ G SITUATION ECG 17981 BI PAT ROUTINE 4 [facility]OSP[facility] W/LEAST 12 LDS TRCG ONLY W/O I&R COMPREHEN 91100 BI PAT SIVE 4 [facility] PANEL PROTHROMB 88753 BI PAT IN TIME 4 [facility] CREATINE 34646 BI PAT KINASE 4 [facility] CREATINE 42569 BI PAT KINASE MB 4 [facility] HOSPITAL ONLY COLLECTIO 91330 BI PAT N VENOUS 4 [facility] VENIPUNCT URE CRITICAL 62143 [place] [address] AYANNA DARRIN ILL/INJUR EMERGENCY ED PHYSI PATIENT INIT 30-74 MIN RADIOLOGI 11746 BI PAT C [address] [place] [address] ON CHEST SINGLE VIEW FRONTAL BLOOD 65198 BI PAT COUNT [address] [place] [address] AUTO&[place] [address] BI PAT TROPONIN [address] [place] [address] KWADWO GROUND A0425 [facility] MILEAGE 4 MEDICAL MEDICAL PER RESPONSE RESPONSE STATUTE MILE THER 45327 BI PAT PROPH/DX [address] [place] [address] HOSPITAL PUSH SINGLE/1S T SBST/DRUG INJECTION J3301 KEIRA KHAN [address] [place] [address] TRIAMCINO [facility] LON HEALTH ACETONIDE NOS 10 MG THERAPEUT 80735 KEIRA KHAN [address] PROPHYLAC [facility] TIC/DX HEALTH INJECTION SUBQ/IM ECG 13205 [facility] ANJUR-ROSSY ROUTINE 4 [facility] ALI DAHIANA ECG MEDICAL W/LEAST G 12 LDS W/I&R PERQ 0066 [facility] [address] NAL CORONARY ANGIOPLAS TY PTCA LEFT [address] CARDIAC CATHETERI ZATION INSERTION [address] DRUG-ELUT ING CORONARY ARTERY STENT ANGIOCARD 8853 [facility] IOGRAPHY [address] [place] [address] HOSPITAL OF LEFT HEART STRUCTURE S CORONARY 8856 [facility] [address] APHY USING TWO CATHETERS VENOUS 3893 [facility] CATHETERI [address] [place] [address] ZATION NOT ELSEWHERE CLASSIFIE D OPEN HRT 3512 [facility] VALVULPLS [address] [place] [address] TY MITRAL VALV WITHOUT REPLCMT PARTIAL 3735 [facility] VENTRICUL [address] [place] [address] ECTOMY DIAGNOSTI 8872 [facility] C [address] [place] [address] ULTRASOUN D OF HEART LEFT [address] CARDIAC CATHETERI ZATION LEFT [address] CARDIAC CATHETERI ZATION PERQ 0066 [facility] TRANSLUMI [address] [place] [address] NAL CORONARY ANGIOPLAS TY PTCA ANGIOCARD 8853 [facility] IOGRAPHY [address] [place] [address] OF LEFT HEART STRUCTURE S INSERTION [address] DRUG-ELUT ING CORONARY ARTERY STENT CORONARY 8856 [facility] ARTERIOGR [address] [place] [address] APHY USING TWO CATHETERS Encounters Encounter Start End Date Code Location Performer Type Date OFFICE 76886 [facility] ANJUR-ROSSY OUTPATIEN 4 4 [facility] ALI DAHIANA T VISIT MEDICAL 15 G MINUTES OFFICE 42111 [facility] ALONZO OUTPATIEN 4 4 PHYSICIAN ANKITA T VISIT S GROUP 25 MINUTES EMERGENCY 46448 BILL KHAN DEPT 4 4 PRAVEEN MORTON VISIT HIGH SEVERITY& THREAT FUNCJ EMERGENCY 18588 STU FRAGA DEPT 4 4 VISIT HIGH SEVERITY& THREAT FUNCJ OFFICE 16110 [facility] GRACY CONSULTAT 4 4 [facility] ANKITA ION MEDICAL NEW/ESTAB G PATIENT 60 MIN [facility] - 4 4 [facility] OUTPATIEN INC T OFFICE 13750 [facility] ALONZO OUTPATIEN 4 4 PHYSICIAN ANKITA T NEW 20 S GROUP MINUTES EMERGENCY 77630 ANGELO STEPHENS DEPT 4 4 GIN GIN VISIT HIGH SEVERITY& THREAT FUNCJ OFFICE 36658 [facility] FALLUJI CONSULTAT 4 4 [facility]ANA ION MEDICAL NEW/ESTAB G PATIENT 60 MIN OFFICE 00785 [facility] ANJUR-ROSSY OUTPATIEN 4 4 [facility] AL[facility] DAHIANA T VISIT MEDICAL 15 G MINUTES EMERGENCY 27891 MARCEL ROD BAB DEPT 4 4 VISIT HIGH SEVERITY& THREAT FUN HOSPITAL [facility] - 4 4 [facility] INPATIENT EMERGENCY 60739 AGUSTO GARZA 4 4 DEPARTMEN T VISIT MODERATE SEVERITY OFFICE 92531 SACHIN SACHIN OUTPATIEN 4 4 NATHALIE NATHALIE T VISIT 15 MINUTES HOSPITAL UNIVERSIT - 4 4 [facility] T OFFICE 35081 [place] RUI OUTPATIEN 4 4 MEDICAL RYA T NEW 30 SERV MINUTES FOUNDATIO N OFFICE 27401 [facility] ANJUR-ROSSY OUTPATIEN 4 4 [facility] AL[facility] DAHIANA T VISIT MEDICAL 15 G MINUTES EMERGENCY 77593 AGUSTO GARZA 4 4 DEPARTMEN T VISIT HIGH/URGE NT SEVERITY [facility] 4 [facility] 27103 [facility] DE[facility] 4 COMM[facility]ITY VISIT HOSPITAL HIGH SEVERITY& THREAT FUNCJ OFFICE 88964 SACHIN SACHIN OUTPATIEN 4 4 NATHALIE NATHALIE T VISIT 15 MINUTES OFFICE 60074 SACHIN SACHIN OUTPATIEN 4 4 NATHALIE NATHALIE T VISIT 15 MINUTES OFFICE 22931 ROSHNIYO ANJUR-ROSSY OUTPATIEN 4 4 [facility] T VISIT MEDICAL 15 G MINUTES EMERGENCY 38325 OSIRIS JENNINGS 4 4 [facility] DEPARTMEN SERVICES T VISIT MODERATE SEVERITY OFFICE 42957 KEIRA KHAN OUTPATIEN 4 4 [facility] VISIT RURAL [address] [place] [address] HOSPITAL AMES - 4 4 [facility] 95697 [facility] VISIT HOSPITAL HIGH SEVERITY& THREAT FUN OFFICE 04117 KEIRA KHAN OUTPATIEN 4 4 [facility] NEW [facility] HE[facility] OFFICE 28898 [facility] LAWANDAGARDNER SANITARIUM OUTPATIEN 4 4 [facility] VISIT MEDICAL [address] [facility] [address] INPATIENT HOSPITAL [address] INPATIENT HOSPITAL [address] INPATIENT
--- OUTSIDE RECORDS SUMMARY | 2017-07-20 21:56 | External Medical Summary Rpt | CCD ---
Author Author , EDMUNDO Organization EDMUNDO Address Unknown Phone [email or web address] Immunization Name Date Rout CVX Reac Dose Comm Prov Is Faci e tion ent ider Refu lity Give sed n Infl 10-0 Intr 140 0.5 Hist NV No NV uenz 9-20 amus mL oric a, 15 cula al P-Fr r Info ee rmat ion - Sour ce Unsp ecif ied
--- OUTSIDE RECORDS SUMMARY | 2017-07-20 21:56 | External Medical Summary Rpt | CCD ---
Author Author , EDMUNDO Organization EDMUNDO Address Unknown Phone [email or web address] Immunization Name Date Rout CVX Reac Dose Comm Prov Is Faci e tion ent ider Refu lity Give sed n Infl 10-0 Intr 140 0.5 Hist TX No TX uenz 9-20 amus mL oric a, 15 cula al P-Fr r Info ee rmat ion - Sour ce Unsp ecif ied
--- OUTSIDE RECORDS SUMMARY | 2017-07-20 21:56 | External Medical Summary Rpt | CCD ---
Author Author , EDMUNDO Organization EDMUNDO Address Unknown Phone [email or web address] Care Team Providers Care Coat Joiner Name Role Phone BERTIN JORGITO, BERTIN Unavailable Unavailable JORGITO ALFARIS MOH, ALFARIS Unavailable Unavailable MOH SACHIN NATHALIE, SACHIN Unavailable Unavailable NATHALIE SACHIN NATHALIE, SACHIN Unavailable Unavailable NATHALIE [facility] Unavailable Unavailable RESPONSE, [facility] Unavailable Unavailable RESPONSE, [facility] ANJUR-KAPALI DAHIANA, Unavailable Unavailable ANJUR-KAPALI DAHIANA BEINEKE VINCE, BEINEKE Unavailable Unavailable VINCE [facility] Unavailable Unavailable HOSPITAL, [facility] Unavailable Unavailable STU [...] Unavailable [facility], Unavailable Unavailable [facility] BILL NAN, BILL Unavailable Unavailable NAN [facility], [facility] Un[facility] Un[facility], [facility], [facility] Unavailable SERVICES, [facility] DAY RODOLFO, DAY Unavailable Unavailable RODOLFO [facility] Unavailable Unavailable [facility], [facility] Unavailable Unavailable AMBULANCE SE, [facility] AMBULANCE SE [facility] Unavailable Unavailable EMS, [facility] EMS [facility] Unavailable Unavailable EMS, [facility] EMS BRODY NATHALIE, BRODY NATHALIE Unavailable Unavailable RADMANESH SHA, Unavailable Unavailable RADMANESH SHA GRACY ANKITA, Unavailable Unavailable GRACY ANKITA SOKAN BAB, SOKAN BAB Unavailable Unavailable [facility], Unavailable Unavailable [facility], ST Unavailable Unavailable [facility] CONTRERAS ROSITA BUCHANANENS Unavailable Unavailable [facility], Unavailable Unavailable [facility] Unavailable Unavailable ALIZA GARZA, AGUSTO GARZA Unavailable Unavailable AGUSTO ONEAL Unavailable Unavailable KOURTNEY IV ALL, Unavailable Unavailable KOURTNEY IV ALL STEPHENS GIN, STEPHENS Unavailable Unavailable GIN Purpose Continuity of Care Document - 04-17-2012 through 2016 Problems Code Diagnosis DOS Provider Status 2724 OTHER AND 07-30-2014 [facility] UNSPECIFIED HEALTH MEDICAL G HYPERLIPIDE JULIO 23649 CORONARY 07-30-2014 [facility] [place] [facility] CORONARY ARTERY 51560 ATRIAL 07-30-2014 [facility] FIBRILLATIO HEALTH N MEDICAL G 81186 PRECORDIAL 07-30-2014 [facility] PAIN HEALTH MEDICAL G 7248 OTHER 07-27-2014 [facility] SYMPTOMS PHYSICIANS REFERABLE GROUP TO BACK 64086 INSOMNIA 07-27-2014 [facility] UNSPECIFIED PHYSICIANS GROUP 514 PULMONARY 07-19-2014 [facility] [place] CONGESTION RADIOLOGY AND HYPOSTASIS 7802 SYNCOPE AND 07-19-2014 [place] [place] COLLAPSE 91297 ALTERED 07-19-2014 [facility] EMS 02499 SHORTNESS 07-19-2014 [facility] OF BREATH HEALTH MEDICAL G 29885 CHEST PAIN 07-19-2014 [facility] UNSPECIFIED HEALTH MEDICAL G 40122 OTHER CHEST 07-19-2014 [place]ILL [place] PAIN 38050 HEAD 07-19-2014 [facility] [place] INJURY, RADIOLOGY UNSPECIFIED 02679 COR 07-17-2014 [facility] ATHEROSLERO HEALTH UNSPEC MEDICAL G TYPE VESSEL [place]/CLAUDIA T 43628 FIRST 07-17-2014 [facility] [place] [facility] PSC CULAR BLOCK 4263 OTHER LEFT 07-17-2014 [facility] [place] [facility] PSC BLOCK 45412 OTHER 07-17-2014 NEW SPECIFIED [place] [facility] PSC DYSRHYTHMIA S 7905 OTHER 07-17-2014 [facility] NONSPECIFIC HEALTH ABNORMAL MEDICAL G SERUM ENZYME LEVELS 92469 NONSPECIFIC 07-17-2014 NEW ABNORMAL [place] [facility] PSC IOGRAM 15839 OSTEOARTHRO 07-06-2014 [facility] UNSPEC MEDICAL WHETHER IMAGING ASS GEN/LOC LOWER LEG 13496 PAIN IN 07-06-2014 [place] JOINT, MEDICAL LOWER LEG IMAGING ASS 7242 LUMBAGO 07-06-2014 [facility] 4293 CARDIOMEGAL 06-30-2014 [facility] PSC 5180 PULMONARY 06-30-2014 [facility] [place] COLLAPSE RADIOLOGY 4280 CONGESTIVE 06-16-2014 [facility] HEART HEALTH FAILURE MEDICAL G UNSPECIFIED V5861 LONG-TERM 06-16-2014 [facility] (CURRENT) HEALTH USE [place] 25351 MORBID 06-08-2014 [facility] OBESITY EAST 68726 HYPERTROPHI 06-08-2014 [facility] C EAST OBSTRUCTIVE CARDIOMYOPA THY 4279 UNSPECIFIED 06-08-2014 HYNDMAN CARDIAC [place] DYSRHYTHMIA [facility] EMS 94928 CHRONIC 06-08-2014 [facility] DIASTOLIC [facility] HEART FAILURE 496 CHRONIC 06-08-2014 [facility] AIRWAY EAST OBSTRUCTION NEC 18079 PAIN IN 04-16-2014 [place] JOINT, MEDICAL FOREARM IMAGING ASS 34027 SPRAIN AND 04-16-2014 AGUSTO GARZA STRAIN OF UNSPECIFIED SITE OF WRIST E9270 OVEREXERTIO 04-16-2014 AGUSTO GARZA N FROM SUDDEN STRENUOUS MOVEMENT V719 OBSERVATION 04-16-2014 [place] FOR MEDICAL UNSPECIFIED IMAGING ASS SUSPECTED CONDITION 4011 ESSENTIAL 04-15-2014 SACHIN NATHALIE HYPERTENSIO N, BENIGN 4660 ACUTE 04-15-2014 SACHIN NATHALIE BRONCHITIS 7213 LUMBOSACRAL 04-12-2014 [facility] WITHOUT MYELOPATHY 4659 ACUTE URIS 02-14-2014 AGUSTO GARZA OF UNSPECIFIED SITE 7862 COUGH 02-14-2014 AGUSTO GARZA 55278 PAINFUL 02-14-2014 AGUSTO GARZA RESPIRATION 4111 INTERMEDIAT 02-03-2014 [facility] E CORONARY HEALTH SYNDROME MEDICAL G 2720 PURE 02-02-2014 [place] HYPERCHOLES [facility] TEROLE[facility]IA [facility]OSPITAL 4019 UNSPECIFIED 02-02-2014 [place] ESSENTIAL [facility] HYPERTENSIO HOSPITAL N 412 OLD 02-02-2014 [place] MYOCARDIAL [facility] INFARCTION HOSPITAL 7245 UNSPECIFIED 01-22-2014 SACHIN NATHALIE BACKACHE 46960 SPASM OF 01-22-2014 SACHIN NATHALIE MUSCLE 4292 UNSPECIFIED 12-17-2013 SACHIN NATHALIE CARDIOVASCU LAR DISEASE 62299 UNSPECIFIED 11-26-2013 [facility]ERG[facility] ANKLE SERVICES SPRAIN AND STRAIN 4139 OTHER AND 11-12-2013 [facility] UNSPECIFIED HEALTH ANGINA MEDICAL G PECTORIS 4289 UNSPECIFIED 11-10-2013 [facility] MEDICAL FAILURE RESPONSE 7808 GENERALIZED 11-10-2013 [facility] [place] [address] NAUSEA WITH 11-10-2013 [place] [facility] 4254 OTHER 10-08-2013 [facility] CARDIOMYOPA MEDICAL G JO [place] 46142 ACUT [place] 09-08-2013 [facility] IAL INFARCT INIT EPIS CARE V4582 POSTSURG 09-08-2013 [facility] PERCUT [place] [employer] TRANSLUMINA L COR ANGPLSTY STS 2764 MIXED 05-01-2012 [facility] ACID-BASE [place] [facility] 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[facility] VALVE [place] [facility] DISORDERS 486 PNEUMONIA, 05-01-2012 [facility] ORGANISM HOSPITAL UNSPECIFIED 5119 UNSPECIFIED 05-01-2012 [facility] PLEURAL [place] [employer] EFFUSION 27978 ACUTE 05-01-2012 [facility] RESPIRATORY [place] [employer] FAILURE FLW TRAUMA & SURGERY 5849 ACUTE 05-01-2012 [facility] KIDNEY [place] [employer] FAILURE UNSPECIFIED V148 PERSONAL 04-17-2012 [facility] HISTORY [place] [employer] ALLERGY OTH SPEC MEDICINAL AGTS V5863 LONG-TERM 04-17-2012 [facility] USE OF HOSPITAL ANTIPLATELE T/ANTITHROM BOTIC V5866 LONG-TERM 04-17-2012 [facility] USE OF HOSPITAL ASPIRIN Procedures Procedure DOS Code Location Performer Comment ECG 63818 [facility] ANJUR-ROSSY ROUTINE 4 [facility] ALI DAHIANA ECG MEDICAL W/LEAST G 12 LDS W/I&R GROUND A0425 [facility] EMS MILE RADIOLOGI 31178 [facility] [place] BERTIN C 4 RADIOLOGY JORGITO EXAMINATI ON CHEST SINGLE VIEW FRONTAL ECG 77285 [facility] HEAVEN THO ROUTINE 4 NE HEALTH ECG MEDICAL W/LEAST G 12 LDS I&R ONLY AMB A[address] [facility] SERVICE [address] [place] [address] EMERGENCY EMS [place] [address] [place] [address] [facility] [place] JAMESERALYSHA HEAD/BRAI 4 RADIOLOGY LD IV ALL N W/O CONTRAST MATERIAL RADIOLOGI 90532 [facility] [place] CONTRERAS C 4 RADIOLOGY RAY EXAMINATI ON CHEST SINGLE VIEW FRONTAL ECG 86937 STU PERAZA PHILLY ROUTINE 4 ECG W/LEAST 12 LDS I&R ONLY RADIOLOGI 42825 IBAN BEINEKE C 4 MEDICAL VINCE EXAMINATI IMAGING ON KNEE 3 ASS VIEWS RADEX 20647 [facility] SPINE 4 MEDICAL VINCE LUMBOSACR IMAGING AL ASS MINIMUM 4 VIEWS RADIOLOGI 07169 [facility] [place] MELGAR C 4 RADIOLOGY CAR EXAMINATI ON CHEST SINGLE VIEW FRONTAL AMB A[address] EMERGENCY EMS EMS TRANSPORT LEVEL 1 GROUND A0425 [facility] [address] [facility] STAT[facility] EMS EMS MILE ECG 29280 STEPHENS STEPHENS ROUTINE 4 GIN GIN ECG W/LEAST 12 LDS I&R ONLY ECG 39614 [facility] ANJUR-ROSSY ROUTINE 4 [facility] ALI DAHIANA ECG MEDICAL W/LEAST G 12 LDS W/I&R ECG 37468 [facility] DAY ROUTINE 4 [facility] RODOLFO ECG MEDICAL W/LEAST G 12 LDS I&R ONLY RADIOLOGI 44477 [facility] [place] RADMANESH C EXAM 4 RADIOLOGY SHA CHEST 2 VIEWS FRONTAL&L ATERAL AMB A[address] EMERGENCY EMS EMS TRANSPORT LEVEL [address] STATUTE EMS EMS MILE MRI 20885 NEURODIAG BRODY NATHALIE SPINAL 4 NOSTICS CANAL INC LUMBAR W/O CONTRAST MATERIAL WRIST L3908 [facility] HAND 4 ORTHOSIS EXT CONTROL COCK-UP PREFAB RADEX 89707 IBAN DAYO FOREARM 2 4 MEDICAL YADI VIEWS IMAGING ASS RADEX 64744 [facility] DAYO WRIST 4 MEDICAL YADI COMPLETE IMAGING MINIMUM 3 ASS VIEWS INJECTION J0696 SACHIN STEPHENSON 4 NATHALIE NATHALIE CEFTRIAXO NE SODIUM PER 250 MG INJECTION J1100 SACHIN STEPHENSON 4 NATHALIE NATHALIE DEXAMETHO SONE SODIUM PHOSPHATE 1 MG RADEX 00349 [facility] SPINE 4 Y Y [facility]UM[facility]OSACR HOSPITAL HOSPITAL AL 2/3 VIEWS ECG 99569 [facility] ANJUR-ROSSY ROUTINE 4 [facility] ALI DAHIANA ECG MEDICAL W/LEAST G 12 LDS W/I&R PROTHROMB 61882 [facility] HAND IN TIME 4 [facility] ALIZA MEDICAL G RADIOLOGI 46005 [facility] EXAM 4 MEDICAL YADI CHEST 2 IMAGING VIEWS ASS FRONTAL&L ATERAL CATH PLMT 56824 [facility] GRACY L HRT & 4 NE [facility]ALTH ANKITA ARTS MEDICAL W/NJX & G ANGIO IMG S&I SBSQ 55182 [facility] HAND OBSERVATI 4 [facility] ALIZA ON MEDICAL CARE/DAY G 35 MINUTES CREATINE 27461 BI PAIZON KINASE MB 4 [facility]OSPITAL ONLY COMPREHEN 20061 BI PAIZON SIVE 4 [facility] PANEL INITIAL 77060 [facility] FALLUJI OBSERVATI 4 [facility] ARIANA ON MEDICAL CARE/DAY G 70 MINUTES PROTHROMB 27591 BI PAIZON IN TIME 4 [facility] CREATINE 15874 BI PAIZON KINASE 4 [facility] COLLECTIO 91436 BI PAIZON N VENOUS 4 [facility] VENIPUNCT URE BLOOD 73425 IB PAIZON COUNT 4 [facility] AUTO&[place] [address] BI PAIZON TROPONIN 4 [facility] KWADWO AMB A0427 KEIRA CROCKETT SERVICE [address] [place] [address] ALS AMBULANCE AMBULANCE EMERGENCY SE SE TRANSPORT LEVEL 1 THER 76696 BI PAT PROPH/DX 4 [facility] SEQL IV PUSH SBST/DRUG FAC ECG 42707 [facility] HAND ROUTINE 4 [facility] ALIZA ECG MEDICAL W/LEAST G 12 LDS I&R ONLY GROUND A0425 KEIRA CROCKETT MILEAGE [address] [place] [address] PER AMBULANCE AMBULANCE STATUTE SE SE MILE AMB A0422 KEIRA CROCKETT OXYGEN&O2 4 [facility] SUPPLIES AMBULANCE AMBULANCE LIFE SE SE SUSTAININ G SITUATION ECG 85582 BI PAIZON ROUTINE 4 [facility] W/LEAST 12 LDS TRCG ONLY W/O I&R INJECTION J2270 [facility] MORPHINE 4 [facility] UP TO 10 MG THERAPEUT 22842 [facility] [place] IC 4 [facility] IV PUSH EACH NEW DRUG THER 73606 [facility] PROPH/DX 4 [facility] HOSPITAL PUSH SINGLE/1S T SBST/DRUG INJECTION J1100 SACHIN STEPHENSON 4 NATHALIE NATHALIE DEXAMETHO SONE SODIUM PHOSPHATE 1 MG ECG 26459 [facility] ANJUR-ROSSY ROUTINE 4 [facility] ALI DAHIANA ECG MEDICAL W/LEAST G 12 LDS W/I&R PROTHROMB 68521 [facility] ANJUR-ROSSY IN TIME 4 [facility] ALI DAHIANA MEDICAL G OBSERVATI 27446 [facility] ON CARE 4 NE [facility] ANKITA DISCHARGE MEDICAL G MANAGEMEN T INITIAL 85511 [facility] OBSERVATI 4 NE [facility] ANKITA ON MEDICAL CARE/DAY G 70 MINUTES ECG 70298 [facility] HEAVEN THO ROUTINE 4 NE [facility] ECG MEDICAL W/LEAST G 12 LDS I&R ONLY ECHO 79921 [facility] ANJUR-ROSSY TTHRC R-T 4 [facility] ALI DAHIANA 2D MEDICAL W/WOM-MOD G E COMPL SPEC&COLR D THER 71958 [facility] PAT PROPH/DX 4 [facility] HOSPITAL SEQL IV PUSH SBST/DRUG FAC ECG 94094 [facility] ROUTINE 4 AYANNA DARRIN ECG EMERGENCY W/LEAST PHYSI 12 LDS I&R ONLY AMB A0422 [facility] OXYGEN&O2 4 MEDICAL MEDICAL SUPPLIES RESPONSE RESPONSE LIFE SUSTAININ G SITUATION ECG 72375 BI PAT ROUTINE 4 [facility]OSP[facility] W/LEAST 12 LDS TRCG ONLY W/O I&R COMPREHEN 90222 BI PAT SIVE [address] [facility] PANEL PROTHROMB 21661 BI PAT IN TIME 4 [facility] CREATINE 82296 BI PAT KINASE 4 [facility] CREATINE 35788 BI PAT KINASE MB 4 [facility] HOSPITAL ONLY COLLECTIO 02513 BI PAT N VENOUS 4 [facility] VENIPUNCT URE CRITICAL 31096 [place] [address] AYANNA DARRIN ILL/INJUR EMERGENCY ED PHYSI PATIENT INIT 30-74 MIN RADIOLOGI 70253 BI PTA C [address] [place] [address] ON CHEST SINGLE VIEW FRONTAL BLOOD 13518 BI PAT COUNT [address] [place] [address] AUTO&[place] [address] BI PAT TROPONIN [address] [place] [address] KWADWO GROUND A0425 [facility] MILEAGE 4 MEDICAL MEDICAL PER RESPONSE RESPONSE STATUTE MILE THER 93394 BI PAT PROPH/DX [address] [place] [address] HOSPITAL PUSH SINGLE/1S T SBST/DRUG INJECTION J3301 KEIRA KHAN [address] [place] [address] TRIAMCINO [facility] LON HEALTH ACETONIDE NOS 10 MG THERAPEUT 28646 KEIRA KHAN [address] PROPHYLAC [facility] TIC/DX HEALTH INJECTION SUBQ/IM ECG 66337 [facility] ANJUR-ROSSY ROUTINE 4 [facility] ALI DAHIANA ECG MEDICAL W/LEAST G 12 LDS W/I&R PERQ 0066 [facility] [address] NAL CORONARY ANGIOPLAS TY PTCA LEFT [address] CARDIAC CATHETERI ZATION INSERTION [address] DRUG-ELUT ING CORONARY ARTERY STENT ANGIOCARD 8853 [facility] IOGRAPHY [address] [place] [address] HOSPITAL OF LEFT HEART STRUCTURE S CORONARY 8856 [facility] [address] APHY USING TWO CATHETERS VENOUS 3893 [facility] CATHETERI [address] [place] [address] ZATION NOT ELSEWHERE CLASSIFIE D OPEN HRT 3512 [facility] VALVULPLS [address] [place] [address] TY MITRAL VALV WITHOUT REPLCMT PARTIAL 3735 [facility] VENTRICUL [address] [place] [address] ECTOMY DIAGNOSTI 8872 [facility] C [address] [place] [address] ULTRASOUN D OF HEART LEFT [address] CARDIAC CATHETERI ZATION LEFT [address] CARDIAC CATHETERI ZATION PERQ 0066 [facility] TRANSLUMI [address] [place] [address] NAL CORONARY ANGIOPLAS TY PTCA ANGIOCARD 8853 [facility] IOGRAPHY [address] [place] [address] OF LEFT HEART STRUCTURE S INSERTION [address] DRUG-ELUT ING CORONARY ARTERY STENT CORONARY 8856 [facility] ARTERIOGR [address] [place] [address] APHY USING TWO CATHETERS Encounters Encounter Start End Date Code Location Performer Type Date OFFICE 42051 [facility] ANJUR-ROSSY OUTPATIEN 4 4 [facility] ALI DAHIANA T VISIT MEDICAL 15 G MINUTES OFFICE 77662 [facility] ALONZO OUTPATIEN 4 4 PHYSICIAN ANKITA T VISIT S GROUP 25 MINUTES EMERGENCY 46708 BILL KHAN DEPT 4 4 [facility] VISIT HIGH SEVERITY& THREAT FUNCJ EMERGENCY 85214 STU FRAGA DEPT 4 4 VISIT HIGH SEVERITY& THREAT FUNCJ OFFICE 54247 [facility] GRACY CONSULTAT 4 4 [facility] ANKITA ION MEDICAL NEW/ESTAB G PATIENT 60 MIN [facility] - 4 4 [facility] OUTPATIEN INC T OFFICE 36734 [facility] ALONZO OUTPATIEN 4 4 PHYSICIAN ANKITA T NEW 20 S GROUP MINUTES EMERGENCY 69089 ANGELO STEPHENS DEPT 4 4 GIN GIN VISIT HIGH SEVERITY& THREAT FUNCJ OFFICE 96227 [facility] FALLUJI CONSULTAT 4 4 [facility] ION MEDICAL NEW/ESTAB G PATIENT 60 MIN OFFICE 24125 [facility] ANJUR-ROSSY OUTPATIEN 4 4 [facility] DAHIANA T VISIT MEDICAL 15 G MINUTES EMERGENCY 26074 MARCEL ROD BAB DEPT 4 4 VISIT HIGH SEVERITY& THREAT FUN HOSPITAL [facility] - 4 4 [facility] INPATIENT EMERGENCY 25116 AGUSTO GARZA 4 4 DEPARTMEN T VISIT MODERATE SEVERITY OFFICE 13312 SACHIN SACHIN OUTPATIEN 4 4 NATHALIE NATHALIE T VISIT 15 MINUTES HOSPITAL [facility] - 4 4 [facility] T OFFICE 05663 [place] RUI OUTPATIEN 4 4 MEDICAL RYA T NEW 30 SERV MINUTES FOUNDATIO N OFFICE 59590 [facility] ANJUR-ROSSY OUTPATIEN 4 4 [facility] ALI DAHIANA T VISIT MEDICAL 15 G MINUTES EMERGENCY 76281 AGUSTO GARZA 4 4 DEPARTMEN T VISIT HIGH/URGE NT SEVERITY [facility]ENCY 03575 [facility] 4 [facility] VISIT HOSPITAL HIGH SEVERITY& THREAT FUNCJ OFFICE 67291 SACHIN SACHIN OUTPATIEN 4 4 NATHALIE NATHALIE T VISIT 15 MINUTES OFFICE 91329 SACHIN SACHIN OUTPATIEN 4 4 NATHALIE NATHALIE T VISIT 15 MINUTES OFFICE 21639 ROSHNIYO ANJUR-ROSSY OUTPATIEN 4 4 [facility] T VISIT MEDICAL 15 G MINUTES EMERGENCY 11889 OSIRIS JENNINGS 4 4 EMERGENCY [facility] DEPARTMEN SERVICES T VISIT MODERATE SEVERITY OFFICE 82944 KEIRA KHAN OUTPATIEN 4 4 [facility] [address] [place] [address] HOSPITAL [place] - 4 4 [facility] 42156 [facility]OS[facility] HIGH SEVERITY& THREAT FUN OFFICE 12296 KEIRA KHAN OUTPATIEN 4 4 [facility] HE[facility] OFFICE 67365 [facility] 4 4 [facility] [address] INPATIENT HOSPITAL [address] INPATIENT HOSPITAL [address] INPATIENT
--- OUTSIDE RECORDS SUMMARY | 2017-07-20 21:58 | External Medical Summary Rpt ---
Author Author KEATONELISHA Longo, [employer] Organization [employer] Address Unknown Phone Unavailable Results CBC W Auto Differential panel in Blood Observa Value Referen Units Interpr Notes Date tion ce etation Range Basophils 0 - 0.2 K/MM3 Normal No Jul 19 informati 2016 6:10 [#/volume on in PM ] in source Blood by data Automated count Basophils 0.1 - 2.0 % Normal No Jul 19 informati 2016 6:10 leukocyte on in PM s in source Blood by data Automated count Eosinophi 0.0 - 0.4 K/mm3 Normal No Jul 19 ls informati 2016 6:10 [#/volume on in PM ] in source Blood by data Automated count Eosinophi 0.1 - % Normal No Jul 19 ls/100 12.0 informati 2016 6:10 leukocyte on in PM s in source Blood by data Automated count Granulocy 1.3 - 8.0 K/mm3 Normal No Jul 19 stephenie informati 2016 6:10 [#/volume on in PM ] in source Blood by data Automated count Granulocy 37.0 - % Normal No Jul 19 stephenie/100 80.0 informati 2016 6:10 leukocyte on in PM s in source Blood by data Automated count Hematocri 42.0 - % Low No Jul 19 t [Volume 52.0 informati 2016 6:10 on in PM Fraction] source of Blood data Hemoglobi 14.1 - g/dL Low No Jul 19 n 18.0 informati 2016 6:10 [Mass/vol on in PM ume] in source Blood data Lymphocyt 0.7 - 4.5 K/mm3 Normal No Jul 19 es informati 2016 6:10 [#/volume on in PM ] in source Unspecifi data ed specimen by Automated count Lymphocyt 10 - 50 % Normal No Jul 19 es informati 2016 6:10 [#/volume on in PM ] in source Unspecifi data ed specimen by Automated count Erythrocy 27 - 31.2 pg Normal No Jul 19 te mean informati 2016 6:10 corpuscul on in PM ar source hemoglobi data n [Entitic mass] Erythrocy 31.8 - g/dl Normal No Jul 19 te mean 35.4 informati 2016 6:10 corpuscul on in PM ar source hemoglobi data n concentra tion [Mass/vol ume] by Automated count Erythrocy 82.2 - fl Normal No Jul 19 te mean 97.8 informati 2016 6:10 corpuscul on in PM ar volume source [Entitic data volume] by Automated count Monocytes 0.1 - 1.0 K/mm3 Normal No Jul 19 informati 2016 6:10 [#/volume on in PM ] in source Blood by data Automated count Monocytes 1.7 - 9.3 % Normal No Jul 19 /100 informati 2017 6:10 leukocyte on in PM s in source Blood by data Automated count Platelet 7.4 - fl Normal No Jul 19 mean 10.4 informati 2016 6:10 volume on in PM [Entitic source volume] data in Blood by Automated count Platelets 142 - 424 K/mm3 Normal No Jul 19 informati 2016 6:10 [#/volume on in PM ] in source Blood data Erythrocy 4.6 - 6.2 M/mm3 Low No Jul 19 stephenie informati 2017 6:10 [#/volume on in PM ] in source Amniotic data fluid Erythrocy 11.5 - % Normal No Jul 19 te 17.5 informati 2016 6:10 distribut on in PM ion width source [Entitic data volume] by Automated count Leukocyte 4.8 - K/MM3 Normal No Jul 19 s 10.8 informati 2016 6:10 [#/volume on in PM ] in source Blood data Urinalysis dipstick W Reflex Microscopic panel in Urine Observa Value Referen Units Interpr Notes Date tion ce etation Range Appeara CLEAR CLEAR No No No Sep nce of informa informa informa 2016 Urine tion in tion in tion in 8:30 PM source source source data data data Bacteri 3+ O No No No Jun 25 a informa informa informa 2016 [Presen tion in tion in tion in 8:30 PM ce] in source source source Urine data data data sedimen t by Light microsc opy Bilirub NEGATIV NEG No No No Sep in E informa informa informa 2016 [Presen tion in tion in tion in 8:30 PM ce] in source source source Urine data data data by Test strip Erythro 3+ NEG No Abnorma No Sep 19 cytes informa l informa 2016 [Presen tion in tion in 8:30 PM ce] in source source Urine data data Color RED YELLOW No No Sep 19 of informa informa 7 2016 Urine tion in tion in 2047:UR 8:30 PM source source INE data data COLOR previou sly reporte d as: YELLOW Glucose NEG No No No Sep 19 [Mass/vol informati informati informati 2017 8:30 ume] in on in on in on in PM Urine by source source source Test data data data strip Ketones NEGATIV NEG mg/dL No No Sep E informa informa 2016 [Presen tion in tion in 8:30 PM ce] in source source Urine data data by Automat ed test strip Mucus 2+ NEG No Abnorma No Sep [Pres informa l informa 2016 ce] in tion in tion in 8:30 PM Urine source source sedimen data data t by Light microsc opy Nitrite NEGATIV NEG No No No Sep E informa informa informa 2016 [Presen tion in tion in tion in 8:30 PM ce] in source source source Urine data data data by Test strip pH of 5.0 - 8.5 No Normal No Sep 19 Urine informati informati 2017 8:30 on in on in PM source source data data Protein NEG mg/dL High No Sep 19 [Mass/vol informati 2017 8:30 ume] in on in PM Urine by source Automated data test strip Erythro TNTC 0 rbc/hpf No No Sep 19 cytes informa informa 2016 [Presen tion in tion in 8:30 PM ce] in source source Urine data data sedimen t by Light microsc opy Specific 1.005 - No Normal No Sep 19 gravity 1.030 informati informati 2017 8:30 of Urine on in on in PM source source data data Epithel OCC OCC #/hpf No No Sep 19 ial informa informa 2017 cells.s tion in tion in 8:30 PM quamous source source data data [Presen ce] in Urine sedimen t by Microsc opy high power field Urobili 0.2 NEG E.U./dL No No Sep 19 nogen informa informa 2017 [Presen tion in tion in 8:30 PM ce] in source source Urine data data by Test strip Leukocy [10 O wbc/hpf No No Sep 19 stephenie wbc/hpf informa informa 2016 [#/volu ; 20 tion in tion in 8:30 PM me] in wbc/hpf source source Urine ] data data Urinalysis dipstick W Reflex Microscopic panel in Urine Observa Value Referen Units Interpr Notes Date tion ce etation Range Appeara CLEAR CLEAR No No No Sep 19 nce of informa informa informa 2017 Urine tion in tion in tion in 8:30 PM source source source data data data Bilirub NEGATIV NEG No No No Sep 19 in E informa informa informa 2016 [Presen tion in tion in tion in 8:30 PM ce] in source source source Urine data data data by Test strip Erythro 3+ NEG No Abnorma No Sep 19 cytes informa l informa 2016 [Presen tion in tion in 8:30 PM ce] in source source Urine data data Color YELLOW YELLOW No No No Sep 19 of informa informa informa 2017 Urine tion in tion in tion in 8:30 PM source source source data data data Glucose NEG No No No Sep 19 [Mass/vol informati informati informati 2017 8:30 ume] in on in on in on in PM Urine by source source source Test data data data strip Ketones NEGATIV NEG mg/dL No No Sep 19 E informa informa 2016 [Presen tion in tion in 8:30 PM ce] in source source Urine data data by Automat ed test strip Mucus 2+ NEG No Abnorma No Sep 19 [Presen informa l informa 2016 ce] in tion in tion in 8:30 PM Urine source source sedimen data data t by Light microsc opy Nitrite NEGATIV NEG No No No Sep E informa informa informa 2016 [Presen tion in tion in tion in 8:30 PM ce] in source source source Urine data data data by Test strip pH of 5.0 - 8.5 No Normal No Sep 19 Urine informati informati 2017 8:30 on in on in PM source source data data Protein NEG mg/dL High No Sep 19 [Mass/vol informati 2017 8:30 ume] in on in PM Urine by source Automated data test strip Specific 1.005 - No Normal No Jun 25 gravity 1.030 informati informati 2017 8:30 of Urine on in on in PM source source data data Urobili 0.2 NEG E.U./dL No No Sep nogen informa informa 2016 [Presen tion in tion in 8:30 PM ce] in source source Urine data data by Test strip Urinalysis dipstick W Reflex Microscopic panel in Urine Observa Value Referen Units Interpr Notes Date tion ce etation Range Appeara CLEAR CLEAR No No No Sep nce of informa informa informa 2016 Urine tion in tion in tion in 8:30 PM source source source data data data Bilirub NEGATIV NEG No No No Jun 25 in E informa informa informa 2016 [Presen tion in tion in tion in 8:30 PM ce] in source source source Urine data data data by Test strip Erythro 3+ NEG No Abnorma No Sep cytes informa l informa 2016 [Presen tion in tion in 8:30 PM ce] in source source Urine data data Color RED YELLOW No No Sep of informa informa 2016 Urine tion in tion in 2047:UR 8:30 PM source source INE data data COLOR previou sly reporte d as: YELLOW Glucose NEG No No No Sep [Mass/vol informati informati informati 2016 8:30 ume] in on in on in on in PM Urine by source source source Test data data data strip Ketones NEGATIV NEG mg/dL No No Sep E informa informa 2016 [Presen tion in tion in 8:30 PM ce] in source source Urine data data by Automat ed test strip Mucus 2+ NEG No Abnorma No Sep [Presen informa l informa 2016 ce] in tion in tion in 8:30 PM Urine source source sedimen data data t by Light microsc opy Nitrite NEGATIV NEG No No No Sep E informa informa informa 2016 [Presen tion in tion in tion in 8:30 PM ce] in source source source Urine data data data by Test strip pH of 5.0 - 8.5 No Normal No Sep 19 Urine informati informati 2017 8:30 on in on in PM source source data data Protein NEG mg/dL High No Sep 19 [Mass/vol informati 2017 8:30 ume] in on in PM Urine by source Automated data test strip Specific 1.005 - No Normal No Sep 19 gravity 1.030 informati informati 2017 8:30 of Urine on in on in PM source source data data Urobili 0.2 NEG E.U./dL No No Sep 19 nogen informa informa 2017 [Presen tion in tion in 8:30 PM ce] in source source Urine data data by Test strip Comprehensive metabolic 2000 panel in Serum or Plasma Observa Value Referen Units Interpr Notes Date tion ce etation Range Albumin/G 1.1 - 1.8 No Low No Sep 19 lobulin informati informati 2017 7:00 [Mass on in on in PM ratio] in source source Serum or data data Plasma Albumin 3.4 - 5.0 gm/dL Normal No Sep 19 [Mass/vol informati 2017 7:00 ume] in on in PM Serum or source Plasma data Alkaline 46 - 116 U/L Normal No Sep 19 phosphata informati 2017 7:00 se on in PM [Enzymati source c data activity/ volume] in Serum or Plasma Bilirubin 0.2 - 1.0 mg/dL Normal No Sep 19 .total informati 2017 7:00 [Mass/vol on in PM ume] in source Serum or data Plasma Urea 7 - 18 mg/dL Normal No Sep 19 nitrogen informati 2017 7:00 [Mass/vol on in PM ume] in source Serum or data Plasma Calcium 8.5 - mg/dL Normal No Sep 19 [Mass/vol 10.1 informati 2017 7:00 ume] in on in PM Serum or source Plasma data Chloride 98 - 107 mmoL/L Normal No Sep 19 [Moles/vo informati 2017 7:00 lume] in on in PM Serum or source Plasma data Carbon 21.0 - mmoL/L Normal No Sep 19 dioxide, 32.0 informati 2017 7:00 total on in PM [Moles/vo source lume] in data Serum or Plasma Creatinin 0.70 - mg/dL Normal No Sep 19 e 1.30 informati 2017 7:00 [Mass/vol on in PM ume] in source Serum or data Plasma Creatinin 50 - 200 ML/MIN Normal No Jun 19 e renal informati 2016 7:00 clearance on in PM source predicted data by Cockcroft -Gault formula Estimated >60 ML/MIN No REFERENCE Sep 19 informati RANGE: 2017 7:00 glomerula on in >60 PM r source ML/MIN/1. filtratio data 73 SQUARE n rate METERSIf (GF this patient is -A merican, then multiply theresult by 1.210. Globulin 1.3 - 3.2 gm/dL High No Jun 25 [Mass/vol informati 2016 7:00 ume] in on in PM Serum source data Glucose 74 - 106 mg/dL Normal No Jun 25 [Mass/vol informati 2016 7:00 ume] in on in PM Serum or source Plasma data Potassium 3.5 - 5.1 mmoL/L Low alert Jun 25 2017 7:00 [Moles/vo CRITICAL PM lume] in RESULTS Serum or Plasma RESU LTS CALLED TO: [facility] 06/25/17 1920 Jose Daniel,[place] nda Sodium 136 - 145 mmoL/L Low No Jun 25 [Moles/vo informati 2016 7:00 lume] in on in PM Serum or source Plasma data Aspartate 15 - 37 U/L Normal No Jun 25 informati 2016 7:00 aminotran on in PM sferase source [Enzymati data c activity/ volume] in Serum or Plasma Alanine 12 - 78 U/L Normal No Jun 25 aminotran informati 2016 7:00 sferase on in PM [Enzymati source c data activity/ volume] in Serum or Plasma Protein 6.4 - 8.2 gm/dL Normal No Jun 25 [Mass/vol informati 2016 7:00 ume] in on in PM Serum or source Plasma data CBC W Auto Differential panel in Blood Observa Value Referen Units Interpr Notes Date tion ce etation Range Basophils 0 - 0.2 K/MM3 Normal No Sep informati 2016 7:00 [#/volume on in PM ] in source Blood by data Automated count Basophils 0.1 - 2.0 % Normal No Sep informati 2016 7:00 leukocyte on in PM s in source Blood by data Automated count Eosinophi 0.0 - 0.4 K/mm3 High No Sep 19 ls informati 2016 7:00 [#/volume on in PM ] in source Blood by data Automated count Eosinophi 0.1 - % Normal No Sep 19 ls/100 12.0 informati 2016 7:00 leukocyte on in PM s in source Blood by data Automated count Granulocy 1.3 - 8.0 K/mm3 Normal No Sep 19 stephenie informati 2016 7:00 [#/volume on in PM ] in source Blood by data Automated count Granulocy 37.0 - % Normal No Sep 19 stephenie/100 80.0 informati 2016 7:00 leukocyte on in PM s in source Blood by data Automated count Hematocri 42.0 - % Low No Sep 19 t [Volume 52.0 informati 2016 7:00 on in PM Fraction] source of Blood data Hemoglobi 14.1 - g/dL Low No Sep 19 n 18.0 informati 2016 7:00 [Mass/vol on in PM ume] in source Blood data Lymphocyt 0.7 - 4.5 K/mm3 Normal No Sep 19 es informati 2016 7:00 [#/volume on in PM ] in source Unspecifi data ed specimen by Automated count Lymphocyt 10 - 50 % Normal No Sep 19 es informati 2016 7:00 [#/volume on in PM ] in source Unspecifi data ed specimen by Automated count Erythrocy 27 - 31.2 pg Normal No Sep 19 te mean informati 2016 7:00 corpuscul on in PM ar source hemoglobi data n [Entitic mass] Erythrocy 31.8 - g/dl Normal No Sep 19 te mean 35.4 informati 2016 7:00 corpuscul on in PM ar source hemoglobi data n concentra tion [Mass/vol ume] by Automated count Erythrocy 82.2 - fl Normal No Sep 19 te mean 97.8 informati 2016 7:00 corpuscul on in PM ar volume source [Entitic data volume] by Automated count Monocytes 0.1 - 1.0 K/mm3 Normal No Sep 19 informati 2016 7:00 [#/volume on in PM ] in source Blood by data Automated count Monocytes 1.7 - 9.3 % Normal No Sep 19 /100 informati 2016 7:00 leukocyte on in PM s in source Blood by data Automated count Platelet 7.4 - fl Low No Sep 19 mean 10.4 informati 2016 7:00 volume on in PM [Entitic source volume] data in Blood by Automated count Platelets 142 - 424 K/mm3 No No Sep 19 informati informati 2017 7:00 [#/volume on in on in PM ] in source source Blood data data Erythrocy 4.6 - 6.2 M/mm3 Low No Sep 19 stephenie informati 2016 7:00 [#/volume on in PM ] in source Amniotic data fluid Erythrocy 11.5 - % Normal No Sep 19 te 17.5 informati 2016 7:00 distribut on in PM ion width source [Entitic data volume] by Automated count Leukocyte 4.8 - K/MM3 Normal No Sep 19 s 10.8 informati 2016 7:00 [#/volume on in PM ] in source Blood data CBC W Auto Differential panel in Blood Observa Value Referen Units Interpr Notes Date tion ce etation Range Basophils 0 - 0.2 K/MM3 Normal No Sep 12 informati 2017 6:25 [#/volume on in AM ] in source Blood by data Automated count Basophils 0.1 - 2.0 % Normal No Sep 12 /100 informati 2017 6:25 leukocyte on in AM s in source Blood by data Automated count Eosinophi 0.0 - 0.4 K/mm3 Normal No Sep 12 ls informati 2016 6:25 [#/volume on in AM ] in source Blood by data Automated count Eosinophi 0.1 - % Normal No Sep 12 ls/100 12.0 informati 2016 6:25 leukocyte on in AM s in source Blood by data Automated count Granulocy 1.3 - 8.0 K/mm3 Normal No Sep 12 stephenie informati 2016 6:25 [#/volume on in AM ] in source Blood by data Automated count Granulocy 37.0 - % Normal No Sep 12 stephenie/100 80.0 informati 2016 6:25 leukocyte on in AM s in source Blood by data Automated count Hematocri 42.0 - % Low No Sep 12 t [Volume 52.0 informati 2016 6:25 on in AM Fraction] source of Blood data Hemoglobi 14.1 - g/dL Low No Sep 12 n 18.0 informati 2016 6:25 [Mass/vol on in AM ume] in source Blood data Lymphocyt 0.7 - 4.5 K/mm3 Normal No Sep 12 es informati 2017 6:25 [#/volume on in AM ] in source Unspecifi data ed specimen by Automated count Lymphocyt 10 - 50 % Normal No Sep 12 es informati 2017 6:25 [#/volume on in AM ] in source Unspecifi data ed specimen by Automated count Erythrocy 27 - 31.2 pg Normal No Sep 12 te mean informati 2017 6:25 corpuscul on in AM ar source hemoglobi data n [Entitic mass] Erythrocy 31.8 - g/dl Normal No Sep 12 te mean 35.4 informati 2017 6:25 corpuscul on in AM ar source hemoglobi data n concentra tion [Mass/vol ume] by Automated count Erythrocy 82.2 - fl Normal No Sep 12 te mean 97.8 informati 2017 6:25 corpuscul on in AM ar volume source [Entitic data volume] by Automated count Monocytes 0.1 - 1.0 K/mm3 Normal No Sep 12 informati 2017 6:25 [#/volume on in AM ] in source Blood by data Automated count Monocytes 1.7 - 9.3 % Normal No Sep 12 /100 informati 2017 6:25 leukocyte on in AM s in source Blood by data Automated count Platelet 7.4 - fl Normal No Sep 12 mean 10.4 informati 2017 6:25 volume on in AM [Entitic source volume] data in Blood by Automated count Platelets 142 - 424 K/mm3 Low No Sep 12 informati 2017 6:25 [#/volume on in AM ] in source Blood data Erythrocy 4.6 - 6.2 M/mm3 Low No Sep 12 stephenie informati 2017 6:25 [#/volume on in AM ] in source Amniotic data fluid Erythrocy 11.5 - % Normal No Sep 12 te 17.5 informati 2017 6:25 distribut on in AM ion width source [Entitic data volume] by Automated count Leukocyte 4.8 - K/MM3 Normal No Sep 12 s 10.8 informati 2016 6:25 [#/volume on in AM ] in source Blood data Comprehensive metabolic 2000 panel in Serum or Plasma Observa Value Referen Units Interpr Notes Date tion ce etation Range Albumin/G 1.1 - 1.8 No Low No Sep 11 lobulin informati informati 2016 [Mass on in on in 11:10 AM ratio] in source source Serum or data data Plasma Albumin 3.4 - 5.0 gm/dL Normal No Sep 11 [Mass/vol informati 2017 ume] in on in 11:10 AM Serum or source Plasma data Alkaline 46 - 116 U/L Normal No Sep 11 phosphata informati 2017 se on in 11:10 AM [Enzymati source c data activity/ volume] in Serum or Plasma Bilirubin 0.2 - 1.0 mg/dL Normal No Sep 11 .total informati 2017 [Mass/vol on in 11:10 AM ume] in source Serum or data Plasma Urea 7 - 18 mg/dL Normal No Sep 11 nitrogen informati 2017 [Mass/vol on in 11:10 AM ume] in source Serum or data Plasma Calcium 8.5 - mg/dL Normal No Sep 11 [Mass/vol 10.1 informati 2017 ume] in on in 11:10 AM Serum or source Plasma data Chloride 98 - 107 mmoL/L Normal No Sep 11 [Moles/vo informati 2017 lume] in on in 11:10 AM Serum or source Plasma data Carbon 21.0 - mmoL/L Normal No Sep 11 dioxide, 32.0 informati 2017 total on in 11:10 AM [Moles/vo source lume] in data Serum or Plasma Creatinin 0.70 - mg/dL Normal No Sep 11 e 1.30 informati 2017 [Mass/vol on in 11:10 AM ume] in source Serum or data Plasma Creatinin 50 - 200 ML/MIN Normal No Sep 11 e renal informati 2017 clearance on in 11:10 AM source predicted data by Cockcroft -Gault formula Estimated >60 ML/MIN No REFERENCE Sep 11 informati RANGE: 2017 glomerula on in >60 11:10 AM r source ML/MIN/1. filtratio data 73 SQUARE n rate METERSIf (GF this patient is -A merican, then multiply theresult by 1.210. Globulin 1.3 - 3.2 gm/dL High No Sep 11 [Mass/vol informati 2017 ume] in on in 11:10 AM Serum source data Glucose 74 - 106 mg/dL High No Sep 11 [Mass/vol informati 2017 ume] in on in 11:10 AM Serum or source Plasma data Potassium 3.5 - 5.1 mmoL/L Low No Sep 11 informati 2017 [Moles/vo on in 11:10 AM lume] in source Serum or data Plasma Sodium 136 - 145 mmoL/L Normal No Sep 11 [Moles/vo informati 2017 lume] in on in 11:10 AM Serum or source Plasma data Aspartate 15 - 37 U/L Normal No Sep 11 informati 2017 aminotran on in 11:10 AM sferase source [Enzymati data c activity/ volume] in Serum or Plasma Alanine 12 - 78 U/L Normal No Sep 11 aminotran informati 2016 sferase on in 11:10 AM [Enzymati source c data activity/ volume] in Serum or Plasma Protein 6.4 - 8.2 gm/dL Normal No Sep 11 [Mass/vol informati 2017 ume] in on in 11:10 AM Serum or source Plasma data Potassium [Moles/volume] in Serum or Plasma Observa Value Referen Units Interpr Notes Date tion ce etation Range Potassium 3.5 - 5.1 mmoL/L Normal No May 29 inform 2017 2:43 [Moles/vo on in PM lume] in source Serum or data Plasma Urinalysis dipstick W Reflex Microscopic panel in Urine Observa Value Referen Units Interpr Notes Date tion ce etation Range Appeara CLEAR CLEAR No No No May 23 nce of informa informa informa 2016 Urine tion in tion in tion in 10:40 source source source PM data data data Bacteri 1+ O No No No May 23 a informa informa informa 2016 [Presen tion in tion in tion in 10:40 ce] in source source source PM Urine data data data sedimen t by Light microsc opy Bilirub NEGATIV NEG No No No May 23 in E informa informa informa 2016 [Presen tion in tion in tion in 10:40 ce] in source source source PM Urine data data data by Test strip Erythro TRACE-L NEG No No No May 23 cytes YSED informa informa informa 2016 [Presen tion in tion in tion in 10:40 ce] in source source source PM Urine data data data Color YELLOW YELLOW No No No May 23 of informa informa informa 2017 Urine tion in tion in tion in 10:40 source source source PM data data data Glucose NEG No No No May 23 [Mass/vol informati informati informati 2017 ume] in on in on in on in 10:40 PM Urine by source source source Test data data data strip Ketones NEGATIV NEG mg/dL No No May 23 E informa informa 2016 [Presen tion in tion in 10:40 ce] in source source PM Urine data data by Automat ed test strip Mucus TRACE NEG No Abnorma No May 23 [Presen informa l inform2016 ce] in tion in tion in 10:40 Urine source source PM sedimen data data t by Light microsc opy Nitrite NEGATIV NEG No No No May 23 E informa informa informa 2016 [Presen tion in tion in tion in 10:40 ce] in source source source PM Urine data data data by Test strip pH of 5.0 - 8.5 No Normal No May 23 Urine informati informati 2016 on in on in 10:40 PM source source data data Protein NEG mg/dL No No May 23 [Mass/vol informati informati 2016 ume] in on in on in 10:40 PM Urine by source source Automated data data test strip Erythro 5-10 0 rbc/hpf No No May 23 cytes informa informa 2016 [Presen tion in tion in 10:40 ce] in source source PM Urine data data sedimen t by Light microsc opy Specific 1.005 - No Normal No May 23 gravity 1.030 informati informati 2016 of Urine on in on in 10:40 PM source source data data Epithel 3-5 OCC #/hpf No No May 23 ial informa informa 2017 cells.s tion in tion in 10:40 quamous source source PM data data [Presen ce] in Urine sedimen t by Microsc opy high power field Urobili 0.2 NEG E.U./dL No No May 23 nogen informa informa 2016 [Presen tion in tion in 10:40 ce] in source source PM Urine data data by Test strip Leukocy [3 O wbc/hpf No No May 23 stephenie wbc/hpf informa informa 2016 [#/volu ; 5 tion in tion in 10:40 me] in wbc/hpf source source PM Urine ] data data Urinalysis dipstick W Reflex Microscopic panel in Urine Observa Value Referen Units Interpr Notes Date tion ce etation Range Appeara CLEAR CLEAR No No No May 23 nce of informa informa informa 2016 Urine tion in tion in tion in 10:40 source source source PM data data data Bilirub NEGATIV NEG No No No May 23 in E informa informa informa 2016 [Presen tion in tion in tion in 10:40 ce] in source source source PM Urine data data data by Test strip Erythro TRACE-L NEG No No No May 23 cytes YSED informa informa informa 2016 [Presen tion in tion in tion in 10:40 ce] in source source source PM Urine data data data Color YELLOW YELLOW No No No May 23 of informa informa informa 2016 Urine tion in tion in tion in 10:40 source source source PM data data data Glucose NEG No No No May 23 [Mass/vol informati informati informati 2016 ume] in on in on in on in 10:40 PM Urine by source source source Test data data data strip Ketones NEGATIV NEG mg/dL No No May 23 E informa informa 2016 [Presen tion in tion in 10:40 ce] in source source PM Urine data data by Automat ed test strip Mucus TRACE NEG No Abnorma No May 23 [Presen informa l informa 2016 ce] in tion in tion in 10:40 Urine source source PM sedimen data data t by Light microsc opy Nitrite NEGATIV NEG No No No May 23 E informa informa informa 2016 [Presen tion in tion in tion in 10:40 ce] in source source source PM Urine data data data by Test strip pH of 5.0 - 8.5 No Normal No May 23 Urine informati informati 2016 on in on in 10:40 PM source source data data Protein NEG mg/dL No No May 23 [Mass/vol informati informati 2017 ume] in on in on in 10:40 PM Urine by source source Automated data data test strip Specific 1.005 - No Normal No May 23 gravity 1.030 informati informati 2016 of Urine on in on in 10:40 PM source source data data Urobili 0.2 NEG E.U./dL No No May 23 nogen informa informa 2016 [Presen tion in tion in 10:40 ce] in source source PM Urine data data by Test strip Comprehensive metabolic 2000 panel in Serum or Plasma Observa Value Referen Units Interpr Notes Date tion ce etation Range Albumin/G 1.1 - 1.8 No Low No May 23 lobulin informati informati 2016 [Mass on in on in 10:15 PM ratio] in source source Serum or data data Plasma Albumin 3.4 - 5.0 gm/dL Normal No May 23 [Mass/vol informati 2016 ume] in on in 10:15 PM Serum or source Plasma data Alkaline 46 - 116 U/L High No May 23 phosphata informati 2016 se on in 10:15 PM [Enzymati source c data activity/ volume] in Serum or Plasma Bilirubin 0.2 - 1.0 mg/dL Normal No May 23 .total informati 2016 [Mass/vol on in 10:15 PM ume] in source Serum or data Plasma Urea 7 - 18 mg/dL Normal No May 23 nitrogen informati 2016 [Mass/vol on in 10:15 PM ume] in source Serum or data Plasma Calcium 8.5 - mg/dL Normal No May 23 [Mass/vol 10.1 informati 2016 ume] in on in 10:15 PM Serum or source Plasma data Chloride 98 - 107 mmoL/L Normal No May 23 [Moles/vo informati 2016 lume] in on in 10:15 PM Serum or source Plasma data Carbon 21.0 - mmoL/L Normal No May 23 dioxide, 32.0 informati 2016 total on in 10:15 PM [Moles/vo source lume] in data Serum or Plasma Creatinin 0.70 - mg/dL Normal No May 23 e 1.30 informati 2016 [Mass/vol on in 10:15 PM ume] in source Serum or data Plasma Creatinin 50 - 200 ML/MIN Normal No May 23 e renal informati 2017 clearance on in 10:15 PM source predicted data by Cockcroft -Gault formula Estimated >60 ML/MIN No REFERENCE May 23 informati RANGE: 2017 glomerula on in >60 10:15 PM r source ML/MIN/1. filtratio data 73 SQUARE n rate METERSIf (GF this patient is -A merican, then multiply theresult by 1.210. Globulin 1.3 - 3.2 gm/dL High No May 23 [Mass/vol informati 2016 ume] in on in 10:15 PM Serum source data Glucose 74 - 106 mg/dL Normal No May 23 [Mass/vol informati 2016 ume] in on in 10:15 PM Serum or source Plasma data Potassium 3.5 - 5.1 mmoL/L Normal No May [id number] [Moles/vo on in 10:15 PM lume] in source Serum or data Plasma Sodium 136 - 145 mmoL/L Normal No May 23 [Moles/vo informati 2016 lume] in on in 10:15 PM Serum or source Plasma data Aspartate 15 - 37 U/L Normal No May 232016 aminotran on in 10:15 PM sferase source [Enzymati data c activity/ volume] in Serum or Plasma Alanine 12 - 78 U/L Normal No May 23 aminotran 2016 sferase on in 10:15 PM [Enzymati source c data activity/ volume] in Serum or Plasma Protein 6.4 - 8.2 gm/dL Normal No May 23 [Mass/vol informati 2016 ume] in on in 10:15 PM Serum or source Plasma data CBC W Auto Differential panel in Blood Observa Value Referen Units Interpr Notes Date tion ce etation Range Basophils 0 - 0.2 K/MM3 Normal No May 232016 [#/volume on in 10:15 PM ] in source Blood by data Automated count Basophils 0.1 - 2.0 % Normal No May 232016 leukocyte on in 10:15 PM s in source Blood by data Automated count Eosinophi 0.0 - 0.4 K/mm3 Normal No May 23 ls 2016 [#/volume on in 10:15 PM ] in source Blood by data Automated count Eosinophi 0.1 - % Normal May 23 ls/100 12.0 2016 leukocyte on in 10:15 PM s in source Blood by data Automated count Granulocy 1.3 - 8.0 K/mm3 Normal No May 23 stephenie 2016 [#/volume on in 10:15 PM ] in source Blood by data Automated count Granulocy 37.0 - % Normal No May 23 stephenie/100 80.0 2016 leukocyte on in 10:15 PM s in source Blood by data Automated count Hematocri 42.0 - % Normal No May 23 t [Volume 52.0 2016 on in 10:15 PM Fraction] source of Blood data Hemoglobi 14.1 - g/dL Normal No May 23 n 18.0 2016 [Mass/vol on in 10:15 PM ume] in source Blood data Lymphocyt 0.7 - 4.5 K/mm3 Normal No May 23 es 2016 [#/volume on in 10:15 PM ] in source Unspecifi data ed specimen by Automated count Lymphocyt 10 - 50 % Normal No May 23 es 2016 [#/volume on in 10:15 PM ] in source Unspecifi data ed specimen by Automated count Erythrocy 27 - 31.2 pg Normal No May 23 te mean 2016 corpuscul on in 10:15 PM ar source hemoglobi data n [Entitic mass] Erythrocy 31.8 - g/dl Normal No May 23 te mean 35.4 2016 corpuscul on in 10:15 PM ar source hemoglobi data n concentra tion [Mass/vol ume] by Automated count Erythrocy 82.2 - fl Normal No May 23 te mean 97.8 2016 corpuscul on in 10:15 PM ar volume source [Entitic data volume] by Automated count Monocytes 0.1 - 1.0 K/mm3 Normal No May 232016 [#/volume on in 10:15 PM ] in source Blood by data Automated count Monocytes 1.7 - 9.3 % Normal No May 23 /100 2016 leukocyte on in 10:15 PM s in source Blood by data Automated count Platelet 7.4 - fl Low No May 23 mean 10.4 2016 volume on in 10:15 PM [Entitic source volume] data in Blood by Automated count Platelets 142 - 424 K/mm3 No No May 23 informati inform2016 [#/volume on in on in 10:15 PM ] in source source Blood data data Erythrocy 4.6 - 6.2 M/mm3 Low No May 23 stephenie 2016 [#/volume on in 10:15 PM ] in source Amniotic data fluid Erythrocy 11.5 - % Normal No May 23 te 17.5 2016 distribut on in 10:15 PM ion width source [Entitic data volume] by Automated count Leukocyte 4.8 - K/MM3 Normal No May 23 s 10.8 2016 [#/volume on in 10:15 PM ] in source Blood data Basic metabolic panel in Blood Observa Value Referen Units Interpr Notes Date tion ce etation Range Urea 7 - 18 mg/dL Normal No May 07 nitrogen informati 2016 2:48 [Mass/vol on in PM ume] in source Serum or data Plasma Calcium 8.5 - mg/dL Normal No May 07 [Mass/vol 10.1 informati 2016 2:48 ume] in on in PM Serum or source Plasma data Chloride 98 - 107 mmoL/L Normal No May 07 [Moles/vo informati 2016 2:48 lume] in on in PM Serum or source Plasma data Carbon 21.0 - mmoL/L Normal No May 07 dioxide, 32.0 informati 2016 2:48 total on in PM [Moles/vo source lume] in data Serum or Plasma Creatinin 0.70 - mg/dL Normal No May 07 e 1.30 informati 2016 2:48 [Mass/vol on in PM ume] in source Serum or data Plasma Estimated >60 ML/MIN No REFERENCE May 07 informati RANGE: 2017 2:48 glomerula on in >60 PM r source ML/MIN/1. filtratio data 73 SQUARE n rate METERSIf (GF this patient is -A merican, then multiply theresult by 1.210. Glucose 74 - 106 mg/dL Normal No May 07 [Mass/vol informati 2016 2:48 ume] in on in PM Serum or source Plasma data Potassium 3.5 - 5.1 mmoL/L Low No May 07 informati 2016 2:48 [Moles/vo on in PM lume] in source Serum or data Plasma Sodium 136 - 145 mmoL/L Normal No May 07 [Moles/vo informati 2016 2:48 lume] in on in PM Serum or source Plasma data Basic metabolic panel in Blood Observa Value Referen Units Interpr Notes Date tion ce etation Range Urea 7 - 18 mg/dL Normal No Apr 26 nitrogen inform2016 [Mass/vol on in 10:25 PM ume] in source Serum or data Plasma Calcium 8.5 - mg/dL Normal No Apr 26 [Mass/vol 10.1 informati 2016 ume] in on in 10:25 PM Serum or source Plasma data Chloride 98 - 107 mmoL/L High No Apr 26 [Moles/vo informati 2016 lume] in on in 10:25 PM Serum or source Plasma data Carbon 21.0 - mmoL/L Normal No Apr 26 dioxide, 32.0 informati 2016 total on in 10:25 PM [Moles/vo source lume] in data Serum or Plasma Creatinin 0.70 - mg/dL High No Apr 26 e 1.30 informati 2016 [Mass/vol on in 10:25 PM ume] in source Serum or data Plasma Creatinin 50 - 200 ML/MIN Normal No Apr 26 e renal informati 2017 clearance on in 10:25 PM source predicted data by Cockcroft -Gault formula Estimated >60 ML/MIN No REFERENCE Apr 26 informati RANGE: 2017 glomerula on in >60 10:25 PM r source ML/MIN/1. filtratio data 73 SQUARE n rate METERSIf (GF this patient is -A merican, then multiply theresult by 1.210. Glucose 74 - 106 mg/dL High No Apr 26 [Mass/vol informati 2016 ume] in on in 10:25 PM Serum or source Plasma data Potassium 3.5 - 5.1 mmoL/L Low alert Apr 26 2016 [Moles/vo CRITICAL 10:25 PM lume] in RESULTS Serum or Plasma RESU LTS CALLED TO: Salvador ABRAMS PATHOLOGY TECHNICIAN 04/26/17 [id number] yuan Sodium 136 - 145 mmoL/L Normal No Apr 26 [Moles/vo informati 2016 lume] in on in 10:25 PM Serum or source Plasma data Troponin I.cardiac [Mass/volume] in Serum or Plasma Observa Value Referen Units Interpr Notes Date ti ce etation Range Troponin 0.00 - ng/mL High 0.04 - Apr 26 I.cardiac 0.06 0.49 IS 2017 AN 10:25 PM [Mass/vol INDETERMI ume] in NANT Serum or ZONEAnd Plasma can be consisten t with the following diseases: Trauma Criticall y ill patients [place] >30% TBSACHF Hypothyro idism Amyloidos isHyperte nsion Myocardit is SepsisHyp otension Rhabdomyo lysis Vital exhaust.P ostop surgery Pulmonary embolism CVARenal failure Acute neurologi valeria disease Atrial fib. Basic metabolic panel in Blood Observa Value Referen Units Interpr Notes Date ti ce etation Range Urea 7 - 18 mg/dL Normal No Apr 26 nitrogen informati 2016 [Mass/vol on in 10:25 PM ume] in source Serum or data Plasma Calcium 8.5 - mg/dL Normal No Apr 26 [Mass/vol 10.1 informati 2016 ume] in on in 10:25 PM Serum or source Plasma data Chloride 98 - 107 mmoL/L High No Apr 26 [Moles/vo informati 2016 lume] in on in 10:25 PM Serum or source Plasma data Carbon 21.0 - mmoL/L Normal No Apr 26 dioxide, 32.0 informati 2016 total on in 10:25 PM [Moles/vo source lume] in data Serum or Plasma Creatinin 0.70 - mg/dL High No Apr 26 e 1.30 informati 2016 [Mass/vol on in 10:25 PM ume] in source Serum or data Plasma Creatinin 50 - 200 ML/MIN Normal No Apr 26 e renal informati 2017 clearance on in 10:25 PM source predicted data by Cockcroft -Gault formula Estimated >60 ML/MIN No REFERENCE Apr 26 informati RANGE: 2017 glomerula on in >60 10:25 PM r source ML/MIN/1. filtratio data 73 SQUARE n rate METERSIf (GF this patient is -A merican, then multiply theresult by 1.210. Glucose 74 - 106 mg/dL High No Apr 26 [Mass/vol informati 2017 ume] in on in 10:25 PM Serum or source Plasma data Potassium 3.5 - 5.1 mmoL/L Low alert Apr 26 2016 [Moles/vo CRITICAL 10:25 PM lume] in RESULTS Serum or Plasma RESU LTS CALLED TO: Salvador ABRAMS PATHOLOGY TECHNICIAN 04/26/17 [id number] yasmaniThierry Sodium 136 - 145 mmoL/L Normal No Apr 26 [Moles/vo informati 2017 lume] in on in 10:25 PM Serum or source Plasma data Troponin I.cardiac [Mass/volume] in Serum or Plasma Observa Value Referen Units Interpr Notes Date tion ce etation Range Troponin 0.00 - ng/mL High 0.04 - Apr 26 I.cardiac 0.06 0.49 IS 2017 AN 10:25 PM [Mass/vol INDETERMI ume] in NANT Serum or ZONEAnd Plasma can be consisten t with the following diseases: Trauma Criticall y ill patients [place] >30% TBSACHF Hypothyro idism Amyloidos isHyperte nsion Myocardit is SepsisHyp otension Rhabdomyo lysis Vital exhaust.P ostop surgery Pulmonary embolism CVARenal failure Acute neurologi valeria disease Atrial fib. Basic metabolic panel in Blood Observa Value Referen Units Interpr Notes Date tion ce etation Range Urea 7 - 18 mg/dL Normal No Apr 26 nitrogen informati 2016 [Mass/vol on in 10:25 PM ume] in source Serum or data Plasma Calcium 8.5 - mg/dL Normal No Apr 26 [Mass/vol 10.1 informati 2016 ume] in on in 10:25 PM Serum or source Plasma data Chloride 98 - 107 mmoL/L High No Apr 26 [Moles/vo informati 2016 lume] in on in 10:25 PM Serum or source Plasma data Carbon 21.0 - mmoL/L Normal No Apr 26 dioxide, 32.0 informati 2016 total on in 10:25 PM [Moles/vo source lume] in data Serum or Plasma Creatinin 0.70 - mg/dL High No Apr 26 e 1.30 informati 2016 [Mass/vol on in 10:25 PM ume] in source Serum or data Plasma Creatinin 50 - 200 ML/MIN Normal No Apr 26 e renal informati 2017 clearance on in 10:25 PM source predicted data by Cockcroft -Gault formula Estimated >60 ML/MIN No REFERENCE Apr 26 informati RANGE: 2017 glomerula on in >60 10:25 PM r source ML/MIN/1. filtratio data 73 SQUARE n rate METERSIf (GF this patient is -A merican, then multiply theresult by 1.210. Glucose 74 - 106 mg/dL High No Apr 26 [Mass/vol informati 2016 ume] in on in 10:25 PM Serum or source Plasma data Potassium 3.5 - 5.1 mmoL/L Low alert Apr 26 2016 [Moles/vo CRITICAL 10:25 PM lume] in RESULTS Serum or Plasma RESU LTS CALLED TO: Salvador ABRAMS PATHOLOGY TECHNICIAN 04/26/17 [id number] Reyna Sodium 136 - 145 mmoL/L Normal No Apr 26 [Moles/vo informati 2017 lume] in on in 10:25 PM Serum or source Plasma data Troponin I.cardiac [Mass/volume] in Serum or Plasma Observa Value Referen Units Interpr Notes Date tion ce etation Range Troponin 0.00 - ng/mL High 0.04 - Apr 26 I.cardiac 0.06 0.49 IS 2017 AN 10:25 PM [Mass/vol INDETERMI ume] in NANT Serum or ZONEAnd Plasma can be consisten t with the following diseases: Trauma Criticall y ill patients [place] >30% TBSACHF Hypothyro idism Amyloidos isHyperte nsion Myocardit is SepsisHyp otension Rhabdomyo lysis Vital exhaust.P ostop surgery Pulmonary embolism CVARenal failure Acute neurologi valeria disease Atrial fib. Cardiac enzymes Observa Value Referen Units Interpr Notes Date ti ce etation Range Creatine 0 - 4.0 U/L Normal No Apr 26 kinase.MB informati 2016 8:21 /Creatine on in PM source kinase.to data han [Ratio] in Serum or Plasma Creatine 0.0 - 3.6 ng/mL Normal No Apr 26 kinase.MB informati 2016 8:21 on in PM [Mass/vol source ume] in data Serum or Plasma Creatine 39 - 308 U/L Normal No Apr 26 kinase informati 2017 8:21 [Enzymati on in PM c source activity/ data volume] in Serum or Plasma Troponin 0.00 - ng/mL High 0.04 - Apr 26 I.cardiac 0.06 0.49 IS 2017 8:21 AN PM [Mass/vol INDETERMI ume] in NANT Serum or ZONEAnd Plasma can be consisten t with the following diseases: Trauma Criticall y ill patients [place] >30% TBSACHF Hypothyro idism Amyloidos isHyperte nsion Myocardit is SepsisHyp otension Rhabdomyo lysis Vital exhaust.P ostop surgery Pulmonary embolism CVARenal failure Acute neurologi valeria disease Atrial fib. Comprehensive metabolic 2000 panel in Serum or Plasma Observa Value Referen Units Interpr Notes Date tion ce etation Range Albumin/G 1.1 - 1.8 No Low No Apr 26 lobulin informati informati 2016 8:21 [Mass on in on in PM ratio] in source source Serum or data data Plasma Albumin 3.4 - 5.0 gm/dL Normal No Apr 26 [Mass/vol informati 2016 8:21 ume] in on in PM Serum or source Plasma data Alkaline 46 - 116 U/L Normal No Apr 26 phosphata informati 2016 8:21 se on in PM [Enzymati source c data activity/ volume] in Serum or Plasma Bilirubin 0.2 - 1.0 mg/dL Normal No Apr 26 .total informati 2016 8:21 [Mass/vol on in PM ume] in source Serum or data Plasma Urea 7 - 18 mg/dL Normal No Apr 26 nitrogen informati 2016 8:21 [Mass/vol on in PM ume] in source Serum or data Plasma Calcium 8.5 - mg/dL Normal No Apr 26 [Mass/vol 10.1 informati 2016 8:21 ume] in on in PM Serum or source Plasma data Chloride 98 - 107 mmoL/L High No Apr 26 [Moles/vo informati 2016 8:21 lume] in on in PM Serum or source Plasma data Carbon 21.0 - mmoL/L Normal No Apr 26 dioxide, 32.0 informati 2016 8:21 total on in PM [Moles/vo source lume] in data Serum or Plasma Creatinin 0.70 - mg/dL High No Apr 26 e 1.30 informati 2016 8:21 [Mass/vol on in PM ume] in source Serum or data Plasma Creatinin 50 - 200 ML/MIN Low No Apr 26 e renal informati 2016 8:21 clearance on in PM source predicted data by Cockcroft -Gault formula Estimated >60 ML/MIN No REFERENCE Apr 26 informati RANGE: 2017 8:21 glomerula on in >60 PM r source ML/MIN/1. filtratio data 73 SQUARE n rate METERSIf (GF this patient is -A merican, then multiply theresult by 1.210. Globulin 1.3 - 3.2 gm/dL High No Apr 26 [Mass/vol informati 2016 8:21 ume] in on in PM Serum source data Glucose 74 - 106 mg/dL Normal No Apr 26 [Mass/vol informati 2016 8:21 ume] in on in PM Serum or source Plasma data Potassium 3.5 - 5.1 mmoL/L Low Apr 26 2016 8:21 [Moles/vo CRITICAL PM lume] in RESULTS Serum or Plasma RESU LTS CALLED TO: [facility] 04/26/172055 Sophie Abernathy Sodium 136 - 145 mmoL/L Normal No Apr 26 [Moles/vo informati 2016 8:21 lume] in on in PM Serum or source Plasma data Aspartate 15 - 37 U/L Normal No Apr 26 informati 2016 8:21 aminotran on in PM sferase source [Enzymati data c activity/ volume] in Serum or Plasma Alanine 12 - 78 U/L Normal No Apr 26 aminotran informati 2016 8:21 sferase on in PM [Enzymati source c data activity/ volume] in Serum or Plasma Protein 6.4 - 8.2 gm/dL Normal No Apr 26 [Mass/vol informati 2016 8:21 ume] in on in PM Serum or source Plasma data CBC W Auto Differential panel in Blood Observa Value Referen Units Interpr Notes Date tion ce etation Range Granulocy 1.3 - 8.0 K/mm3 Normal No Apr 26 stephenie informati 2016 8:21 [#/volume on in PM ] in source Blood by data Automated count Granulocy 37.0 - % Normal No Apr 26 stephenie/100 80.0 informati 2016 8:21 leukocyte on in PM s in source Blood by data Automated count Hematocri 42.0 - % Low No Apr 26 t [Volume 52.0 informati 2016 8:21 on in PM Fraction] source of Blood data Hemoglobi 14.1 - g/dL Low No Apr 26 n 18.0 informati 2016 8:21 [Mass/vol on in PM ume] in source Blood data Lymphocyt 0.7 - 4.5 K/mm3 Normal No Apr 26 es informati 2016 8:21 [#/volume on in PM ] in source Unspecifi data ed specimen by Automated count Lymphocyt 10 - 50 % Normal No Apr 26 es informati 2016 8:21 [#/volume on in PM ] in source Unspecifi data ed specimen by Automated count Erythrocy 27 - 31.2 pg Normal No Apr 26 te mean informati 2016 8:21 corpuscul on in PM ar source hemoglobi data n [Entitic mass] Erythrocy 31.8 - g/dl Normal No Apr 26 te mean 35.4 informati 2016 8:21 corpuscul on in PM ar source hemoglobi data n concentra tion [Mass/vol ume] by Automated count Erythrocy 82.2 - fL Normal No Apr 26 te mean 97.8 informati 2016 8:21 corpuscul on in PM ar volume source [Entitic data volume] by Automated count Monocytes 0.1 - 1.0 K/mm3 Normal No Apr 26 informati 2016 8:21 [#/volume on in PM ] in source Blood by data Automated count Monocytes 1.7 - 9.3 % Normal No Apr 26 /100 informati 2016 8:21 leukocyte on in PM s in source Blood by data Automated count Platelets 142 - 424 K/mm3 Normal No Apr 26 informati 2016 8:21 [#/volume on in PM ] in source Blood data Erythrocy 4.6 - 6.2 M/mm3 Low No Apr 26 stephenie informati 2016 8:21 [#/volume on in PM ] in source Amniotic data fluid Erythrocy 11.5 - % Normal No Apr 26 te 17.5 informati 2016 8:21 distribut on in PM ion width source [Entitic data volume] by Automated count Leukocyte 4.8 - K/mm3 Normal No Apr 26 s 10.8 informati 2016 8:21 [#/volume on in PM ] in source Blood data Cardiac enzymes Observa Value Referen Units Interpr Notes Date tion ce etation Range Creatine 0 - 4.0 U/L High No March 06 kinase.MB informati 2016 9:45 /Creatine on in PM source kinase.to data han [Ratio] in Serum or Plasma Creatine 0.0 - 3.6 ng/mL Normal No March 06 kinase.MB informati 2017 9:45 on in PM [Mass/vol source ume] in data Serum or Plasma Creatine 39 - 308 U/L Normal No March 06 kinase informati 2017 9:45 [Enzymati on in PM c source activity/ data volume] in Serum or Plasma Troponin 0.00 - ng/mL High 0.04 - March 06 I.cardiac 0.06 0.49 IS 2017 9:45 AN PM [Mass/vol INDETERMI ume] in NANT Serum or ZONEAnd Plasma can be consisten t with the following diseases: Trauma Criticall y ill patients [place] >30% TBSACHF Hypothyro idism Amyloidos isHyperte nsion Myocardit is SepsisHyp otension Rhabdomyo lysis Vital exhaust.P ostop surgery Pulmonary embolism CVARenal failure Acute neurologi valeria disease Atrial fib. Comprehensive metabolic 2000 panel in Serum or Plasma Observa Value Referen Units Interpr Notes Date tion ce etation Range Albumin/G 1.1 - 1.8 No Low No March 06 lobulin informati informati 2016 9:45 [Mass on in on in PM ratio] in source source Serum or data data Plasma Albumin 3.4 - 5.0 gm/dL Normal No March 06 [Mass/vol informati 2016 9:45 ume] in on in PM Serum or source Plasma data Alkaline 46 - 116 U/L High No March 06 phosphata informati 2016 9:45 se on in PM [Enzymati source c data activity/ volume] in Serum or Plasma Bilirubin 0.2 - 1.0 mg/dL Normal No March 06 .total informati 2016 9:45 [Mass/vol on in PM ume] in source Serum or data Plasma Urea 7 - 18 mg/dL Normal No March 06 nitrogen informati 2016 9:45 [Mass/vol on in PM ume] in source Serum or data Plasma Calcium 8.5 - mg/dL Normal No March 06 [Mass/vol 10.1 informati 2016 9:45 ume] in on in PM Serum or source Plasma data Chloride 98 - 107 mmoL/L Normal No March 06 [Moles/vo informati 2016 9:45 lume] in on in PM Serum or source Plasma data Carbon 21.0 - mmoL/L Normal No March 06 dioxide, 32.0 informati 2017 9:45 total on in PM [Moles/vo source lume] in data Serum or Plasma Creatinin 0.70 - mg/dL Normal No March 06 e 1.30 informati 2016 9:45 [Mass/vol on in PM ume] in source Serum or data Plasma Creatinin 50 - 200 ML/MIN Normal No March 06 e renal informati 2016 9:45 clearance on in PM source predicted data by Cockcroft -Gault formula Estimated >60 ML/MIN No REFERENCE March 06 informati RANGE: 2017 9:45 glomerula on in >60 PM r source ML/MIN/1. filtratio data 73 SQUARE n rate METERSIf (GF this patient is -A merican, then multiply theresult by 1.210. Globulin 1.3 - 3.2 gm/dL High No March 06 [Mass/vol informati 2017 9:45 ume] in on in PM Serum source data Glucose 74 - 106 mg/dL Normal No March 06 [Mass/vol informati 2016 9:45 ume] in on in PM Serum or source Plasma data Potassium 3.5 - 5.1 mmoL/L Low No March 062016 9:45 [Moles/vo on in PM lume] in source Serum or data Plasma Sodium 136 - 145 mmoL/L Normal No March 06 [Moles/vo 2016 9:45 lume] in on in PM Serum or source Plasma data Aspartate 15 - 37 U/L Normal No March 06 inform2016 9:45 aminotran on in PM sferase source [Enzymati data c activity/ volume] in Serum or Plasma Alanine 12 - 78 U/L Normal No March 06 aminotran 2016 9:45 sferase on in PM [Enzymati source c data activity/ volume] in Serum or Plasma Protein 6.4 - 8.2 gm/dL Normal No March 06 [Mass/vol informati 2016 9:45 ume] in on in PM Serum or source Plasma data CBC W Auto Differential panel in Blood Observa Value Referen Units Interpr Notes Date tion ce etation Range Basophils 0 - 0.2 K/MM3 Normal No March 062016 9:45 [#/volume on in PM ] in source Blood by data Automated count Basophils 0.1 - 2.0 % Normal No March 06 informati 2016 9:45 leukocyte on in PM s in source Blood by data Automated count Eosinophi 0.0 - 0.4 K/mm3 Normal No March 06 ls informati 2016 9:45 [#/volume on in PM ] in source Blood by data Automated count Eosinophi 0.1 - % Normal No March 06 ls/100 12.0 informati 2016 9:45 leukocyte on in PM s in source Blood by data Automated count Granulocy 1.3 - 8.0 K/mm3 Normal No March 06 stephenie informati 2016 9:45 [#/volume on in PM ] in source Blood by data Automated count Granulocy 37.0 - % Normal No March 06 stephenie/100 80.0 informati 2016 9:45 leukocyte on in PM s in source Blood by data Automated count Hematocri 42.0 - % Normal No March 06 t [Volume 52.0 informati 2017 9:45 on in PM Fraction] source of Blood data Hemoglobi 14.1 - g/dL No No March 06 n 18.0 informati informati 2017 9:45 [Mass/vol on in on in PM ume] in source source Blood data data Lymphocyt 0.7 - 4.5 K/mm3 Normal No March 06 es informati 2016 9:45 [#/volume on in PM ] in source Unspecifi data ed specimen by Automated count Lymphocyt 10 - 50 % Normal No March 06 es informati 2016 9:45 [#/volume on in PM ] in source Unspecifi data ed specimen by Automated count Erythrocy 27 - 31.2 pg High No March 06 te mean informati 2016 9:45 corpuscul on in PM ar source hemoglobi data n [Entitic mass] Erythrocy 31.8 - g/dl Normal No March 06 te mean 35.4 informati 2016 9:45 corpuscul on in PM ar source hemoglobi data n concentra tion [Mass/vol ume] by Automated count Erythrocy 82.2 - fl Normal No March 06 te mean 97.8 informati 2016 9:45 corpuscul on in PM ar volume source [Entitic data volume] by Automated count Monocytes 0.1 - 1.0 K/mm3 Normal No March 06 informati 2016 9:45 [#/volume on in PM ] in source Blood by data Automated count Monocytes 1.7 - 9.3 % Normal No March 06 / informati 2017 9:45 leukocyte on in PM s in source Blood by data Automated count Platelet 7.4 - fl Low No March 06 mean 10.4 informati 2016 9:45 volume on in PM [Entitic source volume] data in Blood by Automated count Platelets 142 - 424 K/mm3 Normal No March 06 informati 2017 9:45 [#/volume on in PM ] in source Blood data Erythrocy 4.6 - 6.2 M/mm3 Normal No March 06 stephenie informati 2017 9:45 [#/volume on in PM ] in source Amniotic data fluid Erythrocy 11.5 - % Normal No March 06 te 17.5 informati 2016 9:45 distribut on in PM ion width source [Entitic data volume] by Automated count Leukocyte 4.8 - K/MM3 Normal No March 06 s 10.8 informati 2016 9:45 [#/volume on in PM ] in source Blood data
--- OUTSIDE RECORDS SUMMARY | 2017-07-20 21:58 | External Medical Summary Rpt ---
[...] Serum or Plasma RESU LTS CALLED TO: [facility] 06/25/17 1920 Jose Daniel,Floweree nda Sodium 136 - 145 mmoL/L Low [...] Plasma RESU LTS CALLED TO: Salvador ABRAMS [employer] 04/26/17 [id number] yuan Sodium 136 - 145 [...] Plasma RESU LTS CALLED TO: Salvador ABRAMS [employer] 04/26/17 [id number] yasmaniThierry Sodium 136 - 145 mmoL/L Normal [...] Plasma RESU LTS CALLED TO: Salvador ABRAMS [employer] 04/26/17 [id number] Reyna Sodium 136 - 145 [...] Serum or Plasma RESU LTS CALLED TO: [facility] 04/26/172055 Sophie Abernathy Sodium 136 - 145 [...]
== END 2017-07-19 21:24 | disposition home or self-care (01) ==
LOC: ER 18:03
PROVIDERS: Emergency Medicine
DX: R07.2 Precordial pain (principal); I25.10 Atherosclerotic heart disease of native coronary artery without angina pectoris; I10 Essential (primary) hypertension; I48.2 Chronic atrial fibrillation; Z88.8 Allergy status to other drugs, medicaments and biological substances; J44.9 Chronic obstructive pulmonary disease, unspecified; K21.9 Gastro-esophageal reflux disease without esophagitis; F41.8 Other specified anxiety disorders
CPT/HCPCS: J2405